=== PATIENT | male | born 1930 | race Caucasian/White ===

== ENCOUNTER → 2016-08-14 | Outpatient (CLI) | payer MEDICARE, BC | END | disposition home or self-care (01) | LOC: LABWHC1 07:25 | PROVIDERS: ATTEND Urology | DX: C61 Malignant neoplasm of prostate (principal) | CPT/HCPCS: 36415; 84153 ==

== ENCOUNTER 2016-10-07 08:38 | Day surgery (SDC) | payer MEDICARE, BC ==
[2016-09-29 15:53] VITALS: BMI 28.5
[~2016-10-07 08:38] MED LIST: CLINDAMYCIN 600 MG in SODIUM CHLORIDE 0.9% IRRIGATIO 250 ML IRRIGATION ONE; CLINDAMYCIN 900 MG in DEXTROSE 5% IN WATER 50 ML IVPB ONE; SODIUM CHLORIDE 0.9% 1,000 ML IV SCH
[2016-10-07 09:01] VITALS: RESP 16
[2016-10-07 09:24] LABS: Glucose,Whole Blood 155 mg/dL (75-99)
[2016-10-07] MEDS ORDERED: SODIUM CHLORIDE 0.9% 500 ML IV ONE (10:50)
[2016-10-07] MEDS ORDERED: MIDAZOLAM 2 MG/2 ML VIAL ONE (10:58)
[2016-10-07] MEDS: MIDAZOLAM 2 MG/2 ML VIAL IV ONE ×2 (10:59→11:29)
[2016-10-07] MEDS ORDERED: LIDOCAINE 2% INJ 20 MG/ML SQ ONE ×2 (11:07→11:24)
[2016-10-07] MEDS ORDERED: SODIUM CHLORIDE 0.9% 1,000 ML IV SCH (12:15)
[2016-10-07 17:28] VITALS: BP 115/62; PULSE 56
--- NOTE | 2016-10-07 22:11 | PCN ---
DATE OF SERVICE: 10/07/2016 PROCEDURE: 1. Transvenous temporary pacemaker from right femoral venous approach. 2. Explantation of previously placed pulse generator from the left infraclavicular approach. 3. Implantation of a new pulse generator in the same pocket. PERFORMED BY: Dr. Sushila Hendrix CLINICAL INFORMATION: Mr. Home Buitrago is an 86-year-old gentleman with a known history of CAD, sick sinus syndrome, chronic atrial fibrillation, history of previous prostate carcinoma and also remote history of endocarditis. He had a pulse generator for his temporary pacemaker which was actually a dual-chamber pacemaker operating as a single chamber for more than 5 years. He has chronic underlying atrial fibrillation, for which he is not anticoagulated because of rectal bleeding following his radiation therapy. The pulse generator reach end of life. He was therefore advised replacement, which is scheduled for today. Risks, benefits, options and rationale were explained. PROCEDURE NOTE: Under local anesthesia and strict aseptic precautions from the right femoral approach, a 6 Indonesian introducer was placed in the right femoral vein. A transvenous balloon-tipped pacemaker was positioned in the right ventricular apex. Good threshold was obtained at 0.7 mV. Subsequently this pacemaker was set up at a back-up rate of 40 ( ) of 5. I then unscrubbed and rescrubbed and started the pulse generator change procedure. Under strict aseptic precautions and local anesthesia, a linear incision was made over the existing pulse generator. Using a combination of blunt dissection and cautery, the existing pulse generator was explanted. The atrial lead was taken out and capped and the cap was covered with a ( ) and a suture was used to retain it. Subsequently the ventricular lead was taken out and the back- up pacemaker was used from the right femoral venous approach. The lead was checked for threshold as well as for impedance, and R waves were sensing at 18.5 mV, but these were paced R waves. Subsequently the new pulse generator was attached to the lead. The pulse generator was placed in the same pocket. The pocket was closed in 2 layers. Excellent hemostasis was secured. Prior to closure of the pocket, it was irrigated with antibiotic solution. The wound was closed in 2 layers. Excellent hemostasis was secured. Patient received moderate conscious sedation for a total duration of 50 minutes. He tolerated the procedure well without complications. PACEMAKER INFORMATION: Explanted device was Medtronic Sigma [id number]. This was initially implanted on 05/11/2005. The atrial lead that was capped was a Medtronic lead 5072, serial number [id number], implanted on 02/08/2004. The ventricular lead, which was also a Medtronic lead, was implanted on 02/08/2004. This was a Medtronic lead, model number 4092, serial number [id number], implanted on 02/08/2004. The new device that was put in was a [employer] device, model Assurity [id number], serial number [id number]. The threshold for the ventricular lead was 0.75 mV at 1 ms. The R waves which were paced waves were sensed at 18.5 mV. The lead impedance was 440 ohms. The pacemaker was set at a low rate of 55 and a high rate of 110 with a VVIR mode. Patient tolerated the procedure well without complications. He was given antibiotics for 4 doses and he will be discharged later on today. Under fluoroscopic guidance, the temporary pacemaker was taken out and venous sheath was taken out and hemostasis secured. ZEE
== END 2016-10-07 17:45 | disposition home or self-care (01) ==
LOC: CATHEP 08:38
PROVIDERS: ATTEND Internal Medicine Interventional Cardiology
DX: Z45.010 Encounter for checking and testing of cardiac pacemaker pulse generator [battery] (principal); I25.10 Atherosclerotic heart disease of native coronary artery without angina pectoris; I48.2 Chronic atrial fibrillation; Z85.46 Personal history of malignant neoplasm of prostate; E11.9 Type 2 diabetes mellitus without complications; I10 Essential (primary) hypertension; E78.5 Hyperlipidemia, unspecified; Z95.1 Presence of aortocoronary bypass graft; Z79.899 Other long term (current) drug therapy; Z87.891 Personal history of nicotine dependence; I27.2 Other secondary pulmonary hypertension; Z79.84 Long term (current) use of oral hypoglycemic drugs; Z88.7 Allergy status to serum and vaccine; Z88.0 Allergy status to penicillin; Z79.82 Long term (current) use of aspirin
CPT/HCPCS: 33228; C1785; 33227

== ENCOUNTER → 2016-10-28 | Outpatient (CLI) | payer MEDICARE, BC ==
[2016-10-28 17:43] LABS: CHCM 33.7; HCT 26.6 % (39.0-53.0); HGB 8.7 gm/dL (13.0-17.5); MCH 28.4 pg (25.0-35.0); MCHC 32.8 g/dL (31.0-37.0); MCV 86.7 fL (80.0-100.0); Mean Platelet Volume 8.9; RBC 3.07 m/uL (4.30-5.90); RDW 15.8 % (11.5-15.5); WBC 4.9 k/uL (3.8-10.6)
[2016-10-28 17:59] LABS: Anion Gap 10 mmol/L; Blood Urea Nitrogen 29 mg/dL (9-20); Carbon Dioxide 27 mmol/L (22-30); Chloride 101 mmol/L (98-107); Non-African American GFR(MDRD) >60 (>60 ml/min/1.73 sqM); Potassium 4.9 mmol/L (3.5-5.1); Sodium 138 mmol/L (137-145)
== END | disposition home or self-care (01) ==
LOC: LABPAT 16:19
PROVIDERS: ATTEND Internal Medicine Interventional Cardiology
DX: Z01.812 Encounter for preprocedural laboratory examination (principal); I25.10 Atherosclerotic heart disease of native coronary artery without angina pectoris
CPT/HCPCS: 80051; 82565; 84520; 85027

== ENCOUNTER → 2016-10-30 | Outpatient (CLI) | payer MEDICARE, BC ==
[2016-10-30 10:41] LABS: Basophils % (A) 0 %; CH 27.9; CHCM 32.2; Eosinophils # (A) 0.2 k/uL (0-0.7); Eosinophils % (A) 3 %; HCT 27.6 % (39.0-53.0); HDW 2.97; HGB 8.9 gm/dL (13.0-17.5); Luc # (Auto) 0.16; Luc % (Auto) 3; Lymphocytes # (A) 0.6 k/uL (1.0-4.8); Lymphocytes % (A) 10 %; MCH 28.1 pg (25.0-35.0); MCHC 32.3 g/dL (31.0-37.0); MCV 87.1 fL (80.0-100.0); Mean Platelet Volume 8.8; Monocytes # (A) 0.5 k/uL (0-1.0); Monocytes % (A) 8 %; Neutrophils # (A) 4.5 k/uL (1.3-7.7); Neutrophils % (A) 75 %; RBC 3.17 m/uL (4.30-5.90); WBC 5.9 k/uL (3.8-10.6); WBC (Perox) 5.91
[2016-10-30 10:54] LABS: Anion Gap 9 mmol/L; Blood Urea Nitrogen 20 mg/dL (9-20); Calcium 9.3 mg/dL (8.4-10.2); Carbon Dioxide 29 mmol/L (22-30); Chloride 101 mmol/L (98-107); Glucose 164 mg/dL (74-99); Iron 234 ug/dL (49-181); Non-African American GFR(MDRD) >60 (>60 ml/min/1.73 sqM); Sodium 139 mmol/L (137-145)
[2016-10-30 11:03] LABS: % Iron Saturation 61.3 % (20-50); Total Iron Binding Capacity 382 ug/dL (261-462)
[2016-10-30 11:45] LABS: Vitamin B12 285 pg/mL
== END | disposition home or self-care (01) ==
LOC: LABWHC1 10:09
PROVIDERS: ATTEND Family Medicine
DX: E11.9 Type 2 diabetes mellitus without complications (principal); J44.9 Chronic obstructive pulmonary disease, unspecified; I48.2 Chronic atrial fibrillation
CPT/HCPCS: 36415; 80048; 82607; 82728; 82746; 83540; 83550; 85025

== ENCOUNTER 2016-11-02 08:02 | Day surgery (SDC) | payer MEDICARE, BC ==
[2016-11-02 08:29] VITALS: BMI 28.8
[2016-11-02 08:38] VITALS: PULSE 60; TEMP 95.8
[2016-11-02 08:38] LABS: Glucose,Whole Blood 154 mg/dL (75-99)
[2016-11-02] MEDS ORDERED: LACTATED RINGERS 1,000 ML IV ONE (08:38)
[2016-11-02] MEDS ORDERED: PROPOFOL 10 MG/ML 20 ML VIAL IV ONE (08:41)
--- NOTE | 2016-11-02 08:49 | P.GSHP ---
History of Present Illness H&P Date: 11/02/16 Chief Complaint: GI bleed This is a 86-year-old male referred from Dr. Apple. Patient presents today for EGD and colonoscopy. He's had issues with GI bleed. Past Medical History Past Medical History: Atrial Fibrillation, Cancer, COPD, Diabetes Mellitus, Hypertension, Osteoarthritis (OA), Prostate Disorder Additional Past Medical History / Comment(s): hx. colon polyps, hx. endocarditis , spinal stenosis, hx. prostate cancer-had radiation, edema jr legs History of Any Multi-Drug Resistant Organisms: None Reported Past Surgical History: Appendectomy, Coronary Bypass/CABG, Heart Catheterization , Hernia Repair, Pacemaker Additional Past Surgical History / Comment(s): triple bypass, left hydrocele repair, jr cataracts, several colonoscopies Past Anesthesia/Blood Transfusion Reactions: No Reported Reaction Type of Cardiac Device: Permanent Pacemaker Device Placement Date:: 05/11/2005 [employer] Smoking Status: Former smoker Medications and Allergies Home Medications Medication Instructions Recorded Confirmed Type Aspirin 81 mg PO DAILY 06/07/14 11/02/16 History Atenolol [Tenormin] 50 mg PO QAM 06/07/14 11/02/16 History Digoxin [Digitek] 250 mcg PO QAM 06/07/14 11/02/16 History Multivitamin [Men's Multi-Vitamin] 1 each PO DAILY 06/07/14 11/02/16 History Tamsulosin [Flomax] 0.4 mg PO BID 06/07/14 11/02/16 History metFORMIN HCL 1,000 mg PO BID 06/07/14 11/02/16 History Ferrous Sulfate [Feosol] 325 mg PO DAILY 09/29/16 11/02/16 History Furosemide [Lasix] 40 mg PO QAM 09/29/16 11/02/16 History Ipratropium/Albuterol Sulfate 1 puff INHALATION Q4H 09/29/16 11/02/16 History [Combivent Respimat Inhaler] Lisinopril [Prinivil] 20 mg PO BID 09/29/16 11/02/16 History Potassium Chloride [Klor-Con 20] 20 meq PO DAILY 09/29/16 11/02/16 History amLODIPine [Norvasc] 5 mg PO BID 09/29/16 11/02/16 History Acetaminophen [Tylenol] 500 mg PO Q4-6H PRN 10/07/16 11/02/16 History Allergies Allergy/AdvReac Type Severity Reaction Status Date / Time Penicillins Allergy Rash/Hives Verified 11/02/16 08:29 tetanus immune globulin AdvReac extreme Verified 11/02/16 08:29 swelling @site of injection Surgical - Exam Vital Signs Temp Pulse Resp BP Pulse Ox 95.8 F L 60 18 146/65 95 11/02/16 08:34 11/02/16 08:34 11/02/16 08:34 11/02/16 08:34 11/02/16 08:34 - General well developed, no distress - Eyes PERRL - ENT normal pinna - Neck no masses - Respiratory normal expansion - Cardiovascular Rhythm: regular - Abdomen Abdomen: soft, non tender Results - Labs Abnormal Lab Results - Last 24 Hours (Table) 11/02/16 Range/Units 08:34 POC Glucose (mg/dL) 154 H (75-99) mg/dL Assessment and Plan Plan: GI bleed. We'll perform colonoscopy and EGD.
--- NOTE | 2016-11-02 09:16 | P.OP ---
Date of Procedure: 11/02/16 Preoperative Diagnosis: GI bleed Postoperative Diagnosis: Antral gastritis Small hiatal hernia Mild esophagitis Proctitis Internal initial hemorrhoids Mild diverticulosis Procedure(s) Performed: EGD Colonoscopy Implants: Anesthesia: MAC Surgeon: Oswaldo Salazar Pathology: other (Antrum, esophagus, rectum) Condition: stable Disposition: PACU Indications for Procedure: Operative Findings: Description of Procedure: Patient's placed on the endoscopy table in the lateral position. He received IV sedation. Digital rectal exam was performed which revealed a few external hemorrhoids. The flexible colonoscope was then placed patient anus passed throughout the entire colon. The ileocecal valve was visualized. The cecum, ascending and transverse colon appeared normal. The descending; there is mild diverticulosis. Scope was then brought back the rectum and appeared to be some inflammation. This area is biopsied. The scope was withdrawn for patient. Next the gastroscope placed oropharynx passed in the esophagus and stomach. Scope was then placed through the pylorus the first and second portion of the duodenum appeared normal. Scope was then brought back the antrum and this appeared mildly inflamed. A biopsies performed. The scope was then retroflexed and remainder stomach appeared normal. There was a small hiatal hernia. The GE junction was at 47 is.. The distal esophagus appeared mildly inflamed and a biopsies performed. The proximal esophagus appeared normal. The scope was withdrawn for patient.
[2016-11-02 09:49] VITALS: BP 134/60; RESP 18
== END 2016-11-02 10:17 | disposition home or self-care (01) ==
LOC: ORWHC2ENDO 08:02
PROVIDERS: ATTEND Surgery
DX: K29.60 Other gastritis without bleeding (principal); K20.9 Esophagitis, unspecified; K92.89 Other specified diseases of the digestive system; K92.2 Gastrointestinal hemorrhage, unspecified; K64.4 Residual hemorrhoidal skin tags; K44.9 Diaphragmatic hernia without obstruction or gangrene; Z86.010 Personal history of colon polyps; Z85.46 Personal history of malignant neoplasm of prostate; K57.30 Diverticulosis of large intestine without perforation or abscess without bleeding; I48.91 Unspecified atrial fibrillation; J44.9 Chronic obstructive pulmonary disease, unspecified; E11.9 Type 2 diabetes mellitus without complications; Z79.84 Long term (current) use of oral hypoglycemic drugs; I10 Essential (primary) hypertension; Z95.0 Presence of cardiac pacemaker; Z95.1 Presence of aortocoronary bypass graft; M19.90 Unspecified osteoarthritis, unspecified site; Z79.82 Long term (current) use of aspirin; Z79.899 Other long term (current) drug therapy; Z88.0 Allergy status to penicillin; Z88.7 Allergy status to serum and vaccine
CPT/HCPCS: 88305; 45380; 43239; J2704

== ENCOUNTER → 2016-12-04 | Outpatient (CLI) | payer MEDICARE, BC ==
[2016-12-04 11:01] LABS: Basophils % (A) 0 %; CH 25.8; CHCM 29.8; Eosinophils % (A) 0 %; HCT 26.7 % (39.0-53.0); HDW 3.97; Hypochromasia Marked; Luc # (Auto) 0.05; Luc % (Auto) 1; Lymphocytes # (A) 0.3 k/uL (1.0-4.8); Lymphocytes % (A) 4 %; MCH 25.6 pg (25.0-35.0); MCHC 29.3 g/dL (31.0-37.0); MCV 87.2 fL (80.0-100.0); Mean Platelet Volume 8.7; Monocytes # (A) 0.3 k/uL (0-1.0); Monocytes % (A) 5 %; Neutrophils # (A) 6.1 k/uL (1.3-7.7); Neutrophils % (A) 90 %; Poikilocytosis Slight; RBC 3.07 m/uL (4.30-5.90); RDW 15.4 % (11.5-15.5); WBC 6.8 k/uL (3.8-10.6); WBC (Perox) 6.62
[2016-12-04 11:07] LABS: HGB 7.8 gm/dL (13.0-17.5)
[2016-12-04 17:02] LABS: Iron Saturation 4.26 (15.00-50.00); Iron(FE) 17 ug/dL (65-175); Total Iron Binding Capacity 399 ug/dL (228-460)
== END | disposition home or self-care (01) ==
LOC: LABWHC1 10:28
PROVIDERS: ATTEND Family Medicine
DX: K29.71 Gastritis, unspecified, with bleeding (principal); K21.0 Gastro-esophageal reflux disease with esophagitis; R53.83 Other fatigue; D64.9 Anemia, unspecified
CPT/HCPCS: 36415; 82607; 82728; 82746; 83540; 83550; 85025

== ENCOUNTER → 2016-12-11 | Outpatient (CLI) | payer MEDICARE, BC ==
[2016-12-11 12:00] LABS: Basophils % (A) 0 %; CHCM 28.3; Eosinophils # (A) 0.2 k/uL (0-0.7); Eosinophils % (A) 3 %; HCT 31.8 % (39.0-53.0); HDW 3.63; HGB 8.9 gm/dL (13.0-17.5); Hypochromasia Marked; Luc # (Auto) 0.09; Luc % (Auto) 1; Lymphocytes # (A) 0.6 k/uL (1.0-4.8); Lymphocytes % (A) 9 %; MCH 24.7 pg (25.0-35.0); MCHC 27.9 g/dL (31.0-37.0); MCV 88.7 fL (80.0-100.0); Mean Platelet Volume 7.6; Monocytes # (A) 0.7 k/uL (0-1.0); Monocytes % (A) 10 %; Neutrophils # (A) 5.2 k/uL (1.3-7.7); Neutrophils % (A) 78 %; Poikilocytosis Slight; RBC 3.59 m/uL (4.30-5.90); RDW 14.4 % (11.5-15.5); WBC 6.7 k/uL (3.8-10.6); WBC (Perox) 6.43
== END | disposition home or self-care (01) ==
LOC: LABWHC1 11:11
PROVIDERS: ATTEND Family Medicine
DX: D64.9 Anemia, unspecified (principal); R60.0 Localized edema; K29.71 Gastritis, unspecified, with bleeding
CPT/HCPCS: 36415; 85025

== ENCOUNTER → 2017-04-09 | Outpatient (CLI) | payer MEDICARE, BC ==
[2017-04-09 10:28] LABS: HCT 36.2 % (39.0-53.0); HGB 11.1 gm/dL (13.0-17.5); Hypochromasia Slight; MCH 27.3 pg (25.0-35.0); MCHC 30.6 g/dL (31.0-37.0); MCV 89.3 fL (80.0-100.0); Mean Platelet Volume 7.9; Platelet Count 131 k/uL (150-450); RBC 4.06 m/uL (4.30-5.90); RDW 15.3 % (11.5-15.5); WBC 3.3 k/uL (3.8-10.6)
[2017-04-09 10:38] LABS: ALT 20 U/L (21-72); AST 19 U/L (17-59); Alkaline Phosphatase 57 U/L (38-126); Anion Gap 8 mmol/L; Blood Urea Nitrogen 14 mg/dL (9-20); Calcium 9.8 mg/dL (8.4-10.2); Carbon Dioxide 35 mmol/L (22-30); Chloride 99 mmol/L (98-107); Glucose 164 mg/dL (74-99); Sodium 142 mmol/L (137-145); Total Bilirubin 0.7 mg/dL (0.2-1.3); Total Protein 6.7 g/dL (6.3-8.2)
== END | disposition home or self-care (01) ==
LOC: LABWHC1 09:37
PROVIDERS: ATTEND Internal Medicine Interventional Cardiology
DX: I25.10 Atherosclerotic heart disease of native coronary artery without angina pectoris (principal); D64.9 Anemia, unspecified
CPT/HCPCS: 36415; 80053; 85027

== ENCOUNTER → 2017-04-19 | Day surgery (SDC) | payer MEDICARE, BC ==
[2017-04-15 11:04] VITALS: BMI 28.1
[~2017-04-19] MED LIST changes: +ALPRAZolam 0.25 MG TAB PO PRN; +ALPRAZolam 0.5 MG TAB PO PRN; +ASPIRIN 325 MG TAB PO STA; +ATORVASTATIN 20 MG TAB PO SCH; +ATORVASTATIN 40 MG TAB PO SCH; -CLINDAMYCIN 600 MG in SODIUM CHLORIDE 0.9% IRRIGATIO 250 ML IRRIGATION ONE; -CLINDAMYCIN 900 MG in DEXTROSE 5% IN WATER 50 ML IVPB ONE; +HYDROmorphone 0.5 MG/0.5 ML SYRINGE IVP ONE; +IOHEXOL 350 MG/ML 100 ML BOTTLE INJ ONE; +LIDOCAINE 2% INJ 20 MG/ML (20 ML MDV) ONE; +LIDOCAINE 2% INJ 20 MG/ML SQ ONE; +MIDAZOLAM 2 MG/2 ML VIAL IVP ONE; +MIDAZOLAM 2 MG/2 ML VIAL ONE; +NITROGLYCERIN SL TABS 0.4 MG TAB SUBLINGUAL PRN; +RX INFO: IV CONTRAST WAS GIVEN 1 EACH MISC MISCELLANE PRN; +SODIUM CHLORIDE 0.9% 1,000 ML IV ONE; +SODIUM CHLORIDE 0.9% 1,000 ML in EMPTY BAG 1 BAG IV ONE; +diphenhydrAMINE 50 MG/ML 1 ML VIAL IVP ONE; +diphenhydrAMINE 50 MG/ML 1 ML VIAL ONE
[2017-04-19 09:46] LABS: Basophils % (A) 1 %; Eosinophils # (A) 0.2 k/uL (0-0.7); Eosinophils % (A) 5 %; HCT 35.9 % (39.0-53.0); HGB 11.4 gm/dL (13.0-17.5); Lymphocytes # (A) 0.6 k/uL (1.0-4.8); Lymphocytes % (A) 14 %; MCH 27.4 pg (25.0-35.0); MCHC 31.6 g/dL (31.0-37.0); MCV 86.5 fL (80.0-100.0); Mean Platelet Volume 8.6; Monocytes # (A) 0.4 k/uL (0-1.0); Monocytes % (A) 10 %; Neutrophils # (A) 3.1 k/uL (1.3-7.7); Neutrophils % (A) 69 %; Platelet Count 119 k/uL (150-450); RBC 4.15 m/uL (4.30-5.90); RDW 14.3 % (11.5-15.5); WBC 4.5 k/uL (3.8-10.6)
[2017-04-19 09:49] VITALS: RESP 18
[2017-04-19 10:09] LABS: Glucose,Whole Blood 155 mg/dL (75-99)
[2017-04-19 13:16] VITALS: PULSE 60
--- NOTE | 2017-04-19 14:40 | LTR ---
DATE OF SERVICE: 04/19/[address] Apple: Thank you for the opportunity to participate in the care of Mr. Home Buitrago. This gentleman fortunately has widely patent grafts with diffuse disease in the craig system. Continued medical therapy with risk factor modification is being advised. He will be discharged later on today if he remains stable. Thank you for your referral. Please call for questions. With kind personal regards, Sincerely, DINA / LEANNN: [phone] /
--- NOTE | 2017-04-19 14:40 | CC ---
CARDIAC CATHETERIZATION REPORT DATE OF SERVICE: 04/19/2017. PROCEDURE: Left heart catheterization, coronary angiography and selective injection of bypass grafts. PERFORMED BY: Dr. Michael Hendrix. CLINICAL INFORMATION: Mr. Home Buitrago is an 87-year-old gentleman with a known history of aortocoronary bypass surgery in 2003. He had a SOMMERS to LAD, vein graft to the diagonal branch of LAD, and another vein graft to the PDA branch of RCA. Because of symptoms strongly suggestive of unstable angina, he was advised coronary angiography. He also had a previous stress test that revealed ischemia as well. He had anemia that was corrected and symptoms of chest pain persisted and therefore he was advised cardiac catheterization. PROCEDURE NOTE: Under local anesthesia and strict aseptic precautions, a 6-Senegalese introducer was placed in the right femoral artery. Using standard left Germain catheter I performed selective coronary angiography of the left coronary artery. Using a Raúl catheter, I performed selective coronary angiography of the algaaciq RCA, vein graft to the RCA as well as the SOMMERS injection. I used an AR2 catheter to perform selective coronary angiography of the vein graft to the diagonal branch. LV pressures were obtained with a pigtail catheter but LV gram was not performed. The sheath was taken out and a Perclose device used to secure hemostasis. Good hemostasis was secured. Patient tolerated the procedure well without complication. ANESTHESIA: Moderate conscious sedation time was for 30 minutes. Oxygen saturation was monitored closely. CARDIAC CATHETERIZATION FINDINGS: The left ventricular end-diastolic pressure was about a 15-16 mmHg without any gradient across aortic valve. CORONARY ANGIOGRAPHY FINDINGS: Right coronary artery: This is technically a dominant vessel has no significant disease other than minor irregularities in the proximal and midportion. Distally the PLV is patent small in caliber PDA, which is larger, is totally occluded. Left main coronary artery: This is a short patent vessel has some ostial disease of about maybe 30% or so and the vessel bifurcates into LAD and circumflex. Left anterior descending coronary artery has a 90% proximal lesion. The vessel is totally occluded in the midportion. There is some competitive flow seen in the diagonal branch that is also opacified and the diagonal branch has an ostial lesion. Left posterior circumflex coronary artery: This vessel is a nondominant vessel gives off a first obtuse marginal that is small in caliber. Second obtuse marginal is totally occluded and continues distally continues and gives off 2 branches in the groove and continues as a small posterolateral branch distally with diffuse disease. No significant disease is noted other than diffuse irregularities in the distal aspect of the circumflex that is opacified, but 2nd obtuse marginal is totally occluded. Left internal mammary artery graft to LAD: This graft is widely patent in its origin, course and insertion site. Opacified LAD has minor diffuse irregularities. It goes back and fills another secondary diagonal branch as well. The graft is placed somewhat in the distal half of the LAD. Saphenous vein graft to the PDA branch of RCA: This graft is widely patent in its origin, course and insertion site and opacifies the PDA which has minor irregularities but no significant disease. Saphenous vein graft to the diagonal branches: This graft is widely patent in its origin, course and insertion site. Opacified diagonal is small in caliber and distribution, has mild diffuse disease, but no significant obstructive disease is noted. FINAL IMPRESSION: This patient has patent vein graft to the diagonal branch and PDA branch of RCA. The SOMMERS to LAD is patent. There is significant disease in the algaaciq system with ostial disease in the left main of about 20 to 30%, there is a total occlusion of the LAD in the midportion. The circumflex obtuse marginal is occluded and PDA branch of RCA is occluded. The filling pressures are acceptable. RECOMMENDATIONS: Findings were discussed with the patient and family. I am recommending aggressive medical therapy with risk factor modification. No intervention necessary. Patient will be discharged later on today if he remains stable. MMODL / IJN: [id number] /
[2017-04-19 17:52] VITALS: BP 155/70; TEMP 98.2
== END ==
LOC: CATHCVL 09:13
PROVIDERS: ATTEND Internal Medicine Interventional Cardiology
DX: I25.110 Atherosclerotic heart disease of native coronary artery with unstable angina pectoris (principal); I25.82 Chronic total occlusion of coronary artery; I10 Essential (primary) hypertension; Z87.891 Personal history of nicotine dependence; I49.5 Sick sinus syndrome; Z95.1 Presence of aortocoronary bypass graft; I48.2 Chronic atrial fibrillation; Z95.0 Presence of cardiac pacemaker; Z79.82 Long term (current) use of aspirin; Z79.899 Other long term (current) drug therapy
CPT/HCPCS: 93459; 85025; C1894; C1769 ×2; C1760; J2001; J2250; J1200; Q9967; J1170

== ENCOUNTER → 2017-07-12 | Outpatient (CLI) | payer MEDICARE, BC ==
--- NOTE | 2017-07-12 13:22 | CT ---
EXAMINATION TYPE: CT abdomen pelvis w con DATE OF EXAM: 07/12/2017 COMPARISON: 06/17/12 HISTORY: RUQ mass CT DLP: 1583 mGycm CONTRAST: CT scan of the abdomen and pelvis is performed with Oral Contrast and with IV Contrast, patient injec migue with 100 mL of Isovue 300. FINDINGS: LUNG BASES-: Small right greater than left pleural effusion noted. Mild subpleural fibrosis. Calcifie d nodules seen at the lung bases. There is evidence of cardiomegaly. LIVER/GB: Numerous gallstones identified. Simple hepatic cysts identified without solid hepatic lesio n. Biliary tree is of normal caliber. Small amount of fluid adjacent to the liver edge. PANCREAS: No inflammation. No distinct mass. Pancreatic calcifications compatible with chronic panc reatitis. SPLEEN: Mild splenomegaly measuring 13.2 cm craniocaudal dimension. No lesion seen. ADRENALS: No nodule. No thickening. KIDNEYS/BLADDER: No hydronephrosis. No nephrolithiasis. Left renal cyst measuring 2.3 cm. Urinary b ladder grossly unremarkable. BOWEL: Normal appendix. Normal bowel caliber. No inflammation. There is moderate fecal stasis noted . GENITAL ORGANS: Prostate radiation clips in place. Small amount of free fluid within the pelvis. LYMPH NODES: No greater than 1cm abdominal or pelvic lymph nodes are appreciated. AORTA: No significant abnormality. OSSEOUS STRUCTURES: Severe degenerative change lumbar spine. Postfusion changes at L3-4.. OTHER: No significant additional abnormality is seen. IMPRESSION: 1. No evidence for abdominal mass. 2. Small pleural effusions as well as mild ascites as noted. 3. Chronic pancreatitis. 4. Mild splenomegaly. 5. Moderate fecal stasis. 6. Cholelithiasis.
== END | disposition home or self-care (01) ==
LOC: RADCTMAIN 10:36
PROVIDERS: ATTEND Internal Medicine Hematology & Oncology
DX: R19.01 Right upper quadrant abdominal swelling, mass and lump (principal); K86.1 Other chronic pancreatitis; R16.1 Splenomegaly, not elsewhere classified; K80.20 Calculus of gallbladder without cholecystitis without obstruction
CPT/HCPCS: 82565; 84520; 74177; 36415; Q9967

== ENCOUNTER 2017-08-02 06:22 | Day surgery (SDC) | payer MEDICARE, BC ==
[2017-07-29 15:45] VITALS: BMI 27.1
[~2017-08-02 06:22] MED LIST changes: -ALPRAZolam 0.25 MG TAB PO PRN; -ALPRAZolam 0.5 MG TAB PO PRN; -ASPIRIN 325 MG TAB PO STA; -ATORVASTATIN 20 MG TAB PO SCH; -ATORVASTATIN 40 MG TAB PO SCH; +DEXAMETHASONE SOD PHOSPHATE 10 MG/ML 1 ML VIAL IV ONE; +HEPARIN SODIUM,PORCINE 5,000 UNIT/ML 1 ML VIAL SQ ONE; -HYDROmorphone 0.5 MG/0.5 ML SYRINGE IVP ONE; +HYDROmorphone 0.5 MG/0.5 ML SYRINGE IVP PRN; -IOHEXOL 350 MG/ML 100 ML BOTTLE INJ ONE; +LACTATED RINGERS 1,000 ML IV SCH; -LIDOCAINE 2% INJ 20 MG/ML (20 ML MDV) ONE; -LIDOCAINE 2% INJ 20 MG/ML SQ ONE; -MIDAZOLAM 2 MG/2 ML VIAL IVP ONE; -MIDAZOLAM 2 MG/2 ML VIAL ONE; -NITROGLYCERIN SL TABS 0.4 MG TAB SUBLINGUAL PRN; +ONDANSETRON 4 MG/2 ML VIAL IVP ONE; +ONDANSETRON 4 MG/2 ML VIAL IVP PRN; -RX INFO: IV CONTRAST WAS GIVEN 1 EACH MISC MISCELLANE PRN; +SCOPOLAMINE 1.5MG/72HR PATCH TRANSDERM ONE; -SODIUM CHLORIDE 0.9% 1,000 ML IV ONE; -SODIUM CHLORIDE 0.9% 1,000 ML IV SCH; -SODIUM CHLORIDE 0.9% 1,000 ML in EMPTY BAG 1 BAG IV ONE; +ceFAZolin IN SWFI 2 GM/20 ML SYRINGE IVP ONE; -diphenhydrAMINE 50 MG/ML 1 ML VIAL IVP ONE; -diphenhydrAMINE 50 MG/ML 1 ML VIAL ONE; +fentaNYL (PF) 50 MCG/ML 2 ML AMP IV PRN
[2017-08-02] MEDS ORDERED: LIDOCAINE 1% 20 ML VIAL (10MG/ML) FOR IV START INTRADERMA ONE (07:00)
[2017-08-02 07:08] LABS: Glucose,Whole Blood 142 mg/dL (75-99)
[2017-08-02 07:09] LABS: Basophils % (A) 0 %; Eosinophils # (A) 0.2 k/uL (0-0.7); Eosinophils % (A) 4 %; HCT 33.8 % (39.0-53.0); HGB 11.5 gm/dL (13.0-17.5); Lymphocytes # (A) 0.6 k/uL (1.0-4.8); Lymphocytes % (A) 12 %; MCH 28.7 pg (25.0-35.0); MCHC 33.9 g/dL (31.0-37.0); MCV 84.7 fL (80.0-100.0); Mean Platelet Volume 8.4; Monocytes # (A) 0.4 k/uL (0-1.0); Monocytes % (A) 8 %; Neutrophils # (A) 3.5 k/uL (1.3-7.7); Neutrophils % (A) 74 %; Platelet Count 125 k/uL (150-450); RBC 3.99 m/uL (4.30-5.90); RDW 13.6 % (11.5-15.5); WBC 4.8 k/uL (3.8-10.6)
[2017-08-02 07:19] LABS: Calcium 9.4 mg/dL (8.4-10.2); Potassium 4.5 mmol/L (3.5-5.1)
[2017-08-02] MEDS ORDERED: MIDAZOLAM 2 MG/2 ML VIAL ONE (07:47)
[2017-08-02] MEDS ORDERED: LIDOCAINE 1% INJ 10MG/ML (20 ML MDV) ONE (07:47)
[2017-08-02] MEDS ORDERED: ROCURONIUM BROMIDE 10 MG/ML 10 ML VIAL IV ONE (07:47)
[2017-08-02] MEDS ORDERED: NEOSTIGMINE 1 MG/ML 10 ML VIAL ONE (07:47)
[2017-08-02] MEDS ORDERED: fentaNYL (PF) 50 MCG/ML 2 ML AMP ONE (07:47)
[2017-08-02] MEDS ORDERED: GLYCOPYRROLATE 0.2 MG/ML 2 ML VIAL ONE (07:47)
[2017-08-02] MEDS ORDERED: PROPOFOL 10 MG/ML 20 ML VIAL IV ONE (07:47)
[2017-08-02] MEDS ORDERED: SUCCINYLCHOLINE CHLORIDE 100 MG/5 ML SYR IV ONE (07:47)
--- NOTE | 2017-08-02 08:04 | P.GSHP ---
History of Present Illness H&P Date: 08/02/17 Chief Complaint: Cholecystitis and cholelithiasis Is a 87-year-old male who's had complete return quadrant pain. Patient recent CAT scan showed evidence of cholelithiasis. He presents today for laparoscopic cholecystectomy. Past Medical History Past Medical History: Atrial Fibrillation, Cancer, COPD, Diabetes Mellitus, GERD /Reflux, Hypertension, Osteoarthritis (OA), Prostate Disorder, Skin Disorder Additional Past Medical History / Comment(s): hx. colon polyps, hx. endocarditis , spinal stenosis, hx. prostate cancer-had radiation, edema jr legs,skin CA scalp, chronic anemia per pt. History of Any Multi-Drug Resistant Organisms: None Reported Past Surgical History: Adenoidectomy, Appendectomy, Coronary Bypass/CABG, Heart Catheterization, Hernia Repair, Pacemaker, Tonsillectomy Additional Past Surgical History / Comment(s): triple bypass, left hydrocele repair, jr cataracts, several colonoscopies Past Anesthesia/Blood Transfusion Reactions: No Reported Reaction Type of Cardiac Device: Permanent Pacemaker Device Placement Date:: . 2016 Smoking Status: Former smoker - Past Family History Mother Additional Family Medical History / Comment(s): heart problems Father Family Medical History: Cancer Son(s) Family Medical History: Cancer Brother(s) Family Medical History: Cancer Medications and Allergies Home Medications Medication Instructions Recorded Confirmed Type Atenolol [Tenormin] 50 mg PO QAM 06/07/14 08/02/17 History Digoxin [Digitek] 250 mcg PO QAM 06/07/14 08/02/17 History Tamsulosin [Flomax] 0.4 mg PO BID 06/07/14 08/02/17 History metFORMIN HCL 1,000 mg PO BID 06/07/14 08/02/17 History Furosemide [Lasix] 40 mg PO QAM 09/29/16 08/02/17 History Ipratropium/Albuterol Sulfate 1 puff INHALATION QID 09/29/16 08/02/17 History [Combivent Respimat Inhaler] Lisinopril [Prinivil] 20 mg PO DAILY 09/29/16 08/02/17 History Potassium Chloride [Klor-Con 20] 20 meq PO DAILY 09/29/16 08/02/17 History amLODIPine [Norvasc] 5 mg PO HS 09/29/16 08/02/17 History Iron Infusion 1 dose IV DIRECTED 04/15/17 08/02/17 History Loperamide [Imodium] 2 mg PO QID PRN 04/15/17 08/02/17 History Pantoprazole [Protonix] 40 mg PO DAILY 04/15/17 08/02/17 History Atorvastatin [Lipitor] 20 mg PO HS 07/29/17 08/02/17 History Multivitamin [Men's Multi-Vitamin] 1 each PO DAILY 07/29/17 08/02/17 History Allergies Allergy/AdvReac Type Severity Reaction Status Date / Time Penicillins Allergy Rash/Hives Verified 08/02/17 06:46 tetanus immune globulin AdvReac extreme Verified 08/02/17 06:46 swelling entire arm Surgical - Exam Vital Signs Temp Pulse Resp BP Pulse Ox 97.5 F L 60 16 146/66 97 08/02/17 07:07 08/02/17 07:07 08/02/17 07:07 08/02/17 07:07 08/02/17 07:07 - General well developed, no distress - Eyes PERRL - ENT normal pinna - Neck no masses - Respiratory normal expansion - Cardiovascular Rhythm: regular - Abdomen Mild right quadrant pain Abdomen: soft Results - Labs 08/02/17 07:00 08/02/17 07:00 Abnormal Lab Results - Last 24 Hours (Table) 08/02/17 08/02/17 08/02/17 Range/Units 06:55 07:00 07:00 RBC 3.99 L (4.30-5.90) m/uL Hgb 11.5 L (13.0-17.5) gm/dL Hct 33.8 L (39.0-53.0) % Plt Count 125 L (150-450) k/uL Lymphocytes # 0.6 L (1.0-4.8) k/uL BUN 21 H (9-20) mg/dL Glucose 136 H (74-99) mg/dL POC Glucose (mg/dL) 142 H (75-99) mg/dL Diabetes panel 08/02/17 Range/Units 07:00 Sodium 141 (137-145) mmol/L Potassium 4.5 (3.5-5.1) mmol/L Chloride 99 (98-107) mmol/L Carbon Dioxide 30 (22-30) mmol/L BUN 21 H (9-20) mg/dL Creatinine 0.92 (0.66-1.25) mg/dL Glucose 136 H (74-99) mg/dL Calcium 9.4 (8.4-10.2) mg/dL Calcium panel 08/02/17 Range/Units 07:00 Calcium 9.4 (8.4-10.2) mg/dL Pituitary panel 08/02/17 Range/Units 07:00 Sodium 141 (137-145) mmol/L Potassium 4.5 (3.5-5.1) mmol/L Chloride 99 (98-107) mmol/L Carbon Dioxide 30 (22-30) mmol/L BUN 21 H (9-20) mg/dL Creatinine 0.92 (0.66-1.25) mg/dL Glucose 136 H (74-99) mg/dL Calcium 9.4 (8.4-10.2) mg/dL Adrenal panel 08/02/17 Range/Units 07:00 Sodium 141 (137-145) mmol/L Potassium 4.5 (3.5-5.1) mmol/L Chloride 99 (98-107) mmol/L Carbon Dioxide 30 (22-30) mmol/L BUN 21 H (9-20) mg/dL Creatinine 0.92 (0.66-1.25) mg/dL Glucose 136 H (74-99) mg/dL Calcium 9.4 (8.4-10.2) mg/dL Assessment and Plan Assessment: Cholelithiasis Chronic cholecystitis We'll perform laparoscopic cholecystectomy
[2017-08-02] MEDS ORDERED: BUPIVACAINE (PF) 0.5% 30 ML VIAL SQ ONE (08:17)
[2017-08-02] MEDS ORDERED: HYDROmorphone 1 MG/ML 1 ML SYRINGE IVP ONE (09:00)
--- NOTE | 2017-08-02 09:09 | P.OP ---
Date of Procedure: 08/02/17 Preoperative Diagnosis: Cholecystitis Cholelithiasis Postoperative Diagnosis: Cholecystitis Cholelithiasis Procedure(s) Performed: Laparoscopic cholecystectomy Anesthesia: LOAN Surgeon: Oswaldo Salazar Estimated Blood Loss (ml): 5 Pathology: other (Gallbladder) Condition: stable Disposition: PACU Description of Procedure: The patient was placed on the operating table. The patient received a general endotracheal tube anesthesia. The patients abdomen was prepped and draped in the usual sterile fashion. Through an infraumbilical stab incision, the fascia of the anterior abdominal wall was grasped with a pair of Kochers and then the Veress needle was placed in the peritoneal cavity. Position of the Veress needle was confirmed with positive drop test. The abdomen was then insufflated. After adequate insufflation, the 10 mm trocar was placed in the peritoneal cavity. Following this the laparoscope was placed in the peritoneal cavity. The patient was placed in the head-up, right side up position and then a 5 mm trocar was placed in the right lateral and right subcostal position under direct visualization. A 8 mm trocar was placed in the epigastric position. The gallbladder was grasped in the fundus and infundibulum. Traction on the gallbladder was placed in the lateral and the cephalad positions. The triangle of Calot was visualized.. The cystic duct was bluntly dissected until the union of the cystic duct and common bile duct was seen. The cystic duct was then divided and sealed with the Harmonic scissors. A PDS Endoloop was then placed throughout the cystic duct stump. The cystic artery divided and sealed with the Harmonic scissors. The gallbladder was then removed from the liver bed using Harmonic scissors. The gallbladder was then extracted through the epigastric port site. Operative field was checked for any bleeding spots and Harmonic scissors was used to coagulate the liver bed. The abdomen was irrigated. The trocars were removed. The skin was closed using interrupted 3-0 Vicryl suture. Dermabond dressing were applied. The patient tolerated the procedure well.
[2017-08-02 09:13] VITALS: TEMP 97
[2017-08-02 09:40] LABS: Glucose,Whole Blood 170 mg/dL (75-99)
[2017-08-02 10:12] LABS: Glucose,Whole Blood 164 mg/dL (75-99)
[2017-08-02 11:59] VITALS: RESP 18
[2017-08-02 12:40] VITALS: PULSE 60
[2017-08-02 12:54] VITALS: BP 134/58
[2017-08-02] MEDS ORDERED: ACETAMINOPHEN TAB 325 MG TAB PO ONE (12:56)
== END 2017-08-02 13:41 | disposition home or self-care (01) ==
LOC: OR 06:22
PROVIDERS: ATTEND Surgery
DX: K80.10 Calculus of gallbladder with chronic cholecystitis without obstruction (principal); J44.9 Chronic obstructive pulmonary disease, unspecified; E11.9 Type 2 diabetes mellitus without complications; K21.9 Gastro-esophageal reflux disease without esophagitis; I10 Essential (primary) hypertension; M19.90 Unspecified osteoarthritis, unspecified site; D64.9 Anemia, unspecified; I48.91 Unspecified atrial fibrillation; Z88.0 Allergy status to penicillin; Z88.7 Allergy status to serum and vaccine; Z79.84 Long term (current) use of oral hypoglycemic drugs; Z79.899 Other long term (current) drug therapy; Z85.46 Personal history of malignant neoplasm of prostate; Z92.3 Personal history of irradiation; Z85.828 Personal history of other malignant neoplasm of skin; Z87.891 Personal history of nicotine dependence; Z95.1 Presence of aortocoronary bypass graft; Z95.0 Presence of cardiac pacemaker; Z90.49 Acquired absence of other specified parts of digestive tract; Z80.9 Family history of malignant neoplasm, unspecified
CPT/HCPCS: 47562; 88304; 80048; 85025; J2250; J1644; J1100; J2710; J2405; J2001; J3010; J1170 ×2; J0330; J2704; J0690

== ENCOUNTER → 2018-10-05 | Outpatient (CLI) | payer MEDICARE, BC ==
--- NOTE | 2018-10-06 10:02 | CT ---
EXAMINATION TYPE: CT ChestAbdPelvis w con DATE OF EXAM: 10/05/2018 COMPARISON: CT abdomen dated 07/12/2017 HISTORY: Abnormal weight loss CT DLP: 1186.9 mGycm Automated exposure control for dose reduction was used. CONTRAST: CT scan of the chest, abdomen and pelvis is performed with Oral Contrast and with IV Contrast, patien t injected with 100 mL of Isovue 300. FINDINGS: LUNGS: The lungs are grossly clear, there is no concerning parenchymal mass or nodule identified. Mil d paraseptal emphysema and peripheral interstitial opacities. A few scattered calcified granulomas. There is no pleural effusion or pneumothorax seen. The tracheobronchial tree is patent. MEDIASTINUM: There are no greater than 1 cm hilar or mediastinal lymph nodes. No pericardial effusi on is seen. OTHER: Enlarged left axillary lymph node measuring 1.2 cm on axial image 11 LIVER/GB: Slightly irregular peripheral contour of the suggestive of underlying cirrhosis. Small amou nt of perihepatic ascites. Gallbladder surgically absent. Redemonstration of low-attenuation cysts in the right hepatic lobe measuring up to 1.2 cm, similar to prior. PANCREAS: Multiple calcifications seen within the without discrete pancreatic lesion. SPLEEN: Stable splenomegaly measuring up to 16.4 cm. ADRENALS: Fat-containing left adrenal nodule measuring up to 1.8 cm. KIDNEYS: Symmetric perfusion of the bilateral kidneys. Small left renal cyst measuring 2.3 cm. BOWEL: Oral contrast is seen to the hepatic flexure. A large amount stool is seen in the transverse and descending colon. No bowel obstruction.No free intraperitoneal air. REPRODUCTIVE ORGANS: Redemonstration of prostatic seeds. Small amount of fluid within the pelvis. LYMPH NODES: No greater than 1 cm abdominal or pelvic lymph nodes are appreciated. OSSEOUS STRUCTURES: Multilevel degenerative changes of the thoracic and lumbar spine most severe from L2-3 to L5-S1. No osteolytic or osteoblastic lesions. OTHER: Redemonstration of left inguinal canal hernia with bilateral scrotal hydroceles. IMPRESSION: Cirrhotic features of the liver with worsening of small amount of perihepatic ascites. Stable splenomegaly. Nonspecific left axillary lymph node measuring up to 1.2 cm. Further evaluation with tissue sampling may be obtained.
== END | disposition home or self-care (01) ==
LOC: RADCTMAIN 15:53
PROVIDERS: ATTEND Family Medicine
DX: R18.8 Other ascites (principal); K74.60 Unspecified cirrhosis of liver; I89.8 Other specified noninfective disorders of lymphatic vessels and lymph nodes; E44.1 Mild protein-calorie malnutrition; Z88.7 Allergy status to serum and vaccine; Z88.0 Allergy status to penicillin
CPT/HCPCS: 82565; 84520; 71260; 74177; 36415; Q9967

== ENCOUNTER 2018-10-17 08:50 | Day surgery (SDC) | payer MEDICARE, BC ==
[2018-10-17 09:02] VITALS: PULSE 60; RESP 20; TEMP 97.6
[2018-10-17] MEDS ORDERED: ALPRAZolam 0.25 MG TAB PO STA (09:13)
[2018-10-17 11:05] VITALS: BP 134/62
--- NOTE | 2018-10-17 11:35 | US ---
ULTRASOUND GUIDED FNA LEFT AXILLARY LYMPH NODE BIOPSY: CLINICAL HISTORY: Left axillary lymph node FINDINGS: The procedure was explained to the patient. The risks, complications, benefits and alternatives were discussed and any questions were answered. Informed consent was obtained. Patient was placed supin e on the ultrasound table and prepped and draped in the usual sterile fashion. Utilizing a 25 gauge needle, and a pass was made into the requested left axillary lymph node. Patient was stable throughou t the procedure. Pathology is pending. All elements of maximal barrier technique were utilized. IMPRESSION: 1. Successful ultrasound guided FNA left axillary lymph node biopsy.
== END 2018-10-17 11:10 | disposition home or self-care (01) ==
LOC: RADPROMAIN 08:50
PROVIDERS: ATTEND Family Medicine
DX: R59.0 Localized enlarged lymph nodes (principal); Z88.0 Allergy status to penicillin; Z88.7 Allergy status to serum and vaccine
CPT/HCPCS: 10005; 38505; 76942; 88173; 88305

== ENCOUNTER → 2018-10-26 | Outpatient (CLI) | payer MEDICARE, BC ==
[2018-10-26 16:24] LABS: Creatine Kinase MB 1.5 ng/mL (0.0-2.4); Troponin I <0.012 ng/mL (0.000-0.034)
[2018-10-26 23:14] LABS: African American GFR (CKD) 89.3 (60.0-200.0); Albumin/Globulin Ratio 1.74 (1.60-3.17); Anion Gap 7.5 mmol/L (4.00-12.00); BUN/Creat Ratio 21.11 Ratio (12.00-20.00); Calcium 9.3 mg/dL (8.7-10.3); Carbon Dioxide 27.5 mmol/L (21.6-31.8); Globulin 2.3 g/dL (1.6-3.3); Potassium 4.6 mmol/L (3.5-5.5); Total Bilirubin 0.6 mg/dL (0.3-1.2); Total Protein 6.3 g/dL (6.2-8.2)
== END | disposition home or self-care (01) ==
LOC: LABWHC1 14:09
PROVIDERS: ATTEND Nurse Practitioner Family
DX: I49.9 Cardiac arrhythmia, unspecified (principal)
CPT/HCPCS: 36415; 80053; 82553; 84484; 93005

== ENCOUNTER → 2018-10-31 | Outpatient (CLI) | payer MEDICARE, BC ==
[2018-10-31 13:54] LABS: HCT 34.6 % (39.0-53.0); HGB 11.4 gm/dL (13.0-17.5); MCH 28.4 pg (25.0-35.0); Mean Platelet Volume 7.9; Platelet Count 163 k/uL (150-450); RBC 4.02 m/uL (4.30-5.90); RDW 15.4 % (11.5-15.5); WBC 3.6 k/uL (3.8-10.6)
[2018-10-31 21:15] LABS: Iron Saturation 23.83 (15.00-50.00)
[2018-10-31 21:22] LABS: Alpha Fetoprotein, Tumor Mkr 5.2 ng/mL (0.0-7.9)
[2018-10-31 21:47] LABS: Hepatitis C IgG Antibody Non-Reactive (Non-Reactive)
== END | disposition home or self-care (01) ==
LOC: LABWHC1 12:43
PROVIDERS: ATTEND Internal Medicine Gastroenterology
DX: K74.60 Unspecified cirrhosis of liver (principal)
CPT/HCPCS: 36415; 82103; 82105; 82390; 82728; 83540; 83550; 85027; 86038; 86803; 87340

== ENCOUNTER → 2019-03-14 | Outpatient (CLI) | payer MEDICARE, BC ==
--- NOTE | 2019-03-14 16:04 | US ---
EXAMINATION TYPE: US axilla LT DATE OF EXAM: 03/14/2019 COMPARISON: CT October 05, 2018 CLINICAL HISTORY: C76.1 Axillary Mass. Follow up left axilla lymph node Left axilla: 3.0 x 2.0 x 2.6cm complex area seen IMPRESSION: Suspect continued enlarging abnormal left axillary lymph node correlating to CT axial im age 14. Differential includes neoplasm such as lymphoma. Correlate with biopsy October 17. Consider re peat core biopsy.
== END | disposition home or self-care (01) ==
LOC: RADUSWWP 15:30
PROVIDERS: ATTEND Internal Medicine Hematology & Oncology
DX: C76.1 Malignant neoplasm of thorax (principal)

== ENCOUNTER → 2019-04-03 | Outpatient (CLI) | payer MEDICARE, BC ==
--- NOTE | 2019-04-04 12:24 | XR ---
EXAMINATION TYPE: XR chest 2V DATE OF EXAM: 04/03/2019 COMPARISON: Prior chest x-ray 01/25/[address] 10/05/2018 HISTORY: Shortness of breath TECHNIQUE: Frontal and lateral views of the chest are obtained. FINDINGS: Patient is post median sternotomy. Generator is stable in left pectoral region, there are leads in the right atrium and ventricle. Patchy basilar density persists. Prominence of pulmonary art janae could be indicative of pulmonary artery hypertension. Interstitium is increased as on prior. No e vident pneumothorax. Epicardial pacing leads are in place. IMPRESSION: Findings are similar to prior exam. Correlate for pulmonary venous hypertension and inte rstitial edema, patient with known interstitial lung disease. Possible small effusion although findin gs may represent chronic pleural reaction, additional findings above.
== END | disposition home or self-care (01) ==
LOC: RADXRMAIN 16:12
PROVIDERS: ATTEND Family Medicine
DX: J84.9 Interstitial pulmonary disease, unspecified (principal)
CPT/HCPCS: 71046

== ENCOUNTER → 2019-04-19 | Day surgery (SDC) | payer MEDICARE, BC ==
[2019-04-17 11:50] VITALS: BMI 26.6
[~2019-04-19] MED LIST changes: +BUPIVACAINE (PF) 0.25% 30 ML VIAL SQ ONE; +IPRATROPIUM-ALBUTEROL 3 ML NEB INHALATION STA; +KETAMINE 10 MG/ML 20 ML VIAL ONE; +LIDOCAINE 1% 20 ML VIAL (10MG/ML) FOR IV START INTRADERMA PRN; +LIDOCAINE 1% INJ 10MG/ML (20 ML MDV) ONE; +MIDAZOLAM 2 MG/2 ML VIAL IV PRN; -ONDANSETRON 4 MG/2 ML VIAL IVP PRN; +PROPOFOL 10 MG/ML 20 ML VIAL IV ONE; +Pre Op ABX Message 1 EACH MISC MISCELLANE ONE; +SODIUM CHLORIDE 0.9% 100 ML with ceFAZolin 2,000 MG IV ONE; +SUCCINYLCHOLINE CHLORIDE 100 MG/5 ML SYR IV ONE; +ceFAZolin 1,000 MG VIAL ONE; -ceFAZolin IN SWFI 2 GM/20 ML SYRINGE IVP ONE; -fentaNYL (PF) 50 MCG/ML 2 ML AMP IV PRN; +fentaNYL (PF) 50 MCG/ML 2 ML AMP ONE
[2019-04-19 10:16] LABS: Glucose,Whole Blood 178 mg/dL (75-99)
--- NOTE | 2019-04-19 10:43 | P.GSHP ---
History of Present Illness H&P Date: 04/19/19 Chief Complaint: Left axillary lymphadenopathy This 89-year-old male who presents today for left axillary lymph node biopsy. Patient's noted to have enlarged left axillary lymph nodes. Past Medical History Past Medical History: Atrial Fibrillation, Cancer, COPD, Diabetes Mellitus, GERD/Reflux, Hypertension, Osteoarthritis (OA), Prostate Disorder, Skin Disorder Additional Past Medical History / Comment(s): hx. colon polyps, endocarditis, spinal stenosis, hx. prostate cancer-had radiation & seed implants, edema jr legs,skin CA scalp, chronic anemia -receives iron transfusions., lump left axilla History of Any Multi-Drug Resistant Organisms: None Reported Past Surgical History: Adenoidectomy, Appendectomy, Cholecystectomy, Coronary Bypass/CABG, Heart Catheterization, Hernia Repair, Pacemaker, Tonsillectomy Additional Past Surgical History / Comment(s): triple bypass ([place] 2001), left hydrocele repair (child), cataracts, colonoscopies Past Anesthesia/Blood Transfusion Reactions: No Reported Reaction Type of Cardiac Device: Permanent Pacemaker Device Placement Date:: [facility] 2016 Past Psychological History: No Psychological Hx Reported Smoking Status: Former smoker Past Alcohol Use History: Occasional Additional Past Alcohol Use History / Comment(s): quit smoking 1992, started smoking age 16 smoked 1ppd Past Drug Use History: None Reported - Past Family History Mother Additional Family Medical History / Comment(s): heart problems Father Family Medical History: Cancer Additional Family Medical History / Comment(s): colon CA Son(s) Family Medical History: Cancer Brother(s) Family Medical History: Cancer Medications and Allergies Home Medications Medication Instructions Recorded Confirmed Type Atenolol [Tenormin] 50 mg PO QAM 06/07/14 04/19/19 History Digoxin [Digitek] 250 mcg PO QAM 06/07/14 04/19/19 History Tamsulosin [Flomax] 0.4 mg PO BID 06/07/14 04/19/19 History Furosemide [Lasix] 40 mg PO QAM 09/29/16 04/19/19 History Ipratropium/Albuterol Sulfate 1 puff INHALATION DIRECTED PRN 09/29/16 04/19/19 History [Combivent Respimat Inhaler] Lisinopril [Prinivil] 20 mg PO DAILY 09/29/16 04/19/19 History amLODIPine [Norvasc] 5 mg PO BID 09/29/16 04/19/19 History Iron Infusion 1 dose IV DIRECTED 04/15/17 04/19/19 History Multivitamin [Men's Multi-Vitamin] 1 each PO DAILY 07/29/17 04/19/19 History Linagliptin/Metformin HCl 1 each PO DAILY 04/17/19 04/19/19 History [Jentadueto 2.5 mg-1000 mg Tab] Potassium (Unknown Dose) 1 tab PO DIRECTED 04/17/19 04/19/19 History Allergies Allergy/AdvReac Type Severity Reaction Status Date / Time Penicillins Allergy Rash/Hives Verified 04/17/19 11:02 tetanus immune globulin AdvReac extreme Verified 04/17/19 11:02 swelling entire arm Surgical - Exam Vital Signs Temp Pulse Resp BP Pulse Ox 97.2 F L 63 18 152/65 95 04/19/19 09:57 04/19/19 09:57 04/19/19 09:57 04/19/19 09:57 04/19/19 09:57 - General well developed, well nourished, no distress - Eyes PERRL - ENT normal pinna - Neck no masses - Respiratory normal expansion - Cardiovascular Rhythm: regular - Abdomen Abdomen: soft, non tender Mildly prominent left axillary lymph nodes Results - Labs Abnormal Lab Results - Last 24 Hours (Table) 04/19/19 Range/Units 10:12 POC Glucose (mg/dL) 178 H (75-99) mg/dL Assessment and Plan Assessment: Left axillary of adenopathy. Patient will undergo open biopsy.
[2019-04-19 12:16] VITALS: TEMP 97.7
--- NOTE | 2019-04-19 12:28 | P.OP ---
Date of Procedure: 04/19/19 Preoperative Diagnosis: Left axillary lymphadenopathy Postoperative Diagnosis: Left axillary lymphadenopathy Procedure(s) Performed: Left axillary lymph node biopsy Anesthesia: LOAN Surgeon: Oswaldo Salazar Estimated Blood Loss (ml): 5 Pathology: other (Left axillary lymph node) Condition: stable Disposition: PACU Description of Procedure: Patient's placed the operative table in the supine position. He received general anesthesia. His left exam was prepped and draped in sterile fashion. A standard accident incision was made and then using cautery the subcu tissues were divided. The clavipectoral fascia was opened. The exam was examined. There was a large lymph node measured prostate 2 cm diameter. This was dissected free using Harmonic scissors. There was also enlarged fat pad in these illnesses dissected free and sent to pathology. The wound was inspected cyst. There is no bleeding seen. The skin was closed interrupted 3-0 Monocryl suture. A XAVIER drain was placed prior to skin closure. Patient top she will sent to recovery in stable condition.
[2019-04-19 12:48] VITALS: RESP 16
[2019-04-19 13:46] VITALS: BP 105/58; PULSE 60
== END ==
LOC: OR 09:29
PROVIDERS: ATTEND Surgery
DX: C85.94 Non-Hodgkin lymphoma, unspecified, lymph nodes of axilla and upper limb (principal); R59.0 Localized enlarged lymph nodes; I48.91 Unspecified atrial fibrillation; J44.9 Chronic obstructive pulmonary disease, unspecified; E11.9 Type 2 diabetes mellitus without complications; K21.9 Gastro-esophageal reflux disease without esophagitis; I10 Essential (primary) hypertension; M19.90 Unspecified osteoarthritis, unspecified site; R60.0 Localized edema; M48.00 Spinal stenosis, site unspecified; N40.0 Benign prostatic hyperplasia without lower urinary tract symptoms; Z85.46 Personal history of malignant neoplasm of prostate; Z92.3 Personal history of irradiation; Z86.010 Personal history of colon polyps; Z85.828 Personal history of other malignant neoplasm of skin; D53.9 Nutritional anemia, unspecified; Z95.1 Presence of aortocoronary bypass graft; Z90.49 Acquired absence of other specified parts of digestive tract; Z95.0 Presence of cardiac pacemaker; Z98.890 Other specified postprocedural states; Z98.49 Cataract extraction status, unspecified eye; Z87.891 Personal history of nicotine dependence; Z82.49 Family history of ischemic heart disease and other diseases of the circulatory system; Z80.0 Family history of malignant neoplasm of digestive organs; Z80.9 Family history of malignant neoplasm, unspecified; Z79.84 Long term (current) use of oral hypoglycemic drugs; Z79.899 Other long term (current) drug therapy; Z88.0 Allergy status to penicillin; Z88.7 Allergy status to serum and vaccine
CPT/HCPCS: 38525; 94640; J1644; J1100; J2405; J0690; J2001; J3010; J0330; J2704; 88305; 88341; 88342

== ENCOUNTER 2019-05-01 12:50 | Emergency (ER) | payer MEDICARE, BC ==
[2019-05-01 13:14] VITALS: BP 137/64; PULSE 62; RESP 20; TEMP 98.1
--- NOTE | 2019-05-01 14:15 | ED ---
General Adult HPI - General Chief complaint: Wound/Laceration Stated complaint: post op drain leaking/poss infection Time Seen by Provider: 05/01/19 13:51 Source: patient Mode of arrival: ambulatory Limitations: no limitations - History of Present Illness Initial comments: This 89-year-old white male presents with with the complaint of having some increased drainage from his left axillary wound. He states that he had lymph node removed from the left axilla 2 weeks ago. He had been draining approximately 40-50 mL per day out of his drain. This increased to approximately 100 mL per day over the last 2 days. He's had some mild drainage around the opening of the wound site where the drain is in placed as well. This is more of a yellowish type of drainage. There is been no swelling or erythema at the surgical site. There is been no fevers or chills. He has an appointment to follow-up with Dr. Salazar tomorrow. 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 - Related Data Home Medications Medication Instructions Recorded Confirmed Atenolol [Tenormin] 50 mg PO QAM 06/07/14 04/19/19 Digoxin [Digitek] 250 mcg PO QAM 06/07/14 04/19/19 Tamsulosin [Flomax] 0.4 mg PO BID 06/07/14 04/19/19 Furosemide [Lasix] 40 mg PO QAM 09/29/16 04/19/19 Ipratropium/Albuterol Sulfate 1 puff INHALATION DIRECTED PRN 09/29/16 04/19/19 [Combivent Respimat Inhaler] Lisinopril [Prinivil] 20 mg PO DAILY 09/29/16 04/19/19 amLODIPine [Norvasc] 5 mg PO BID 09/29/16 04/19/19 Iron Infusion 1 dose IV DIRECTED 04/15/17 04/19/19 Multivitamin [Men's Multi-Vitamin] 1 each PO DAILY 07/29/17 04/19/19 Linagliptin/Metformin HCl 1 each PO DAILY 04/17/19 04/19/19 [Jentadueto 2.5 mg-1000 mg Tab] Potassium (Unknown Dose) 1 tab PO DIRECTED 04/17/19 04/19/19 Previous Rx's Medication Instructions Recorded Docusate [Colace] 100 mg PO BID #20 capsule 04/19/19 HYDROcodone/APAP 5-325MG [[place] 1 tab PO Q6HR PRN #10 tab 04/19/19 5-325] Levofloxacin [Levaquin] 500 mg PO DAILY 7 Days #7 tab 05/01/19 Allergies Allergy/AdvReac Type Severity Reaction Status Date / Time Penicillins Allergy Rash/Hives Verified 05/01/19 13:14 tetanus immune globulin AdvReac extreme Verified 05/01/19 13:14 swelling entire arm Review of Systems ROS Statement: Those systems with pertinent positive or pertinent negative responses have been documented in the HPI. ROS Other: All systems not noted in ROS Statement are negative. Past Medical History Past Medical History: Atrial Fibrillation, Cancer, COPD, Diabetes Mellitus, GERD/Reflux, Hypertension, Osteoarthritis (OA), Prostate Disorder, Skin Disorder Additional Past Medical History / Comment(s): hx. colon polyps, endocarditis, spinal stenosis, hx. prostate cancer-had radiation & seed implants, edema jr legs,skin CA scalp, chronic anemia -receives iron transfusions., lump left axilla History of Any Multi-Drug Resistant Organisms: None Reported Past Surgical History: Adenoidectomy, Appendectomy, Cholecystectomy, Coronary Bypass/CABG, Heart Catheterization, Hernia Repair, Pacemaker, Tonsillectomy Additional Past Surgical History / Comment(s): triple bypass (2001), left hydrocele repair (child), cataracts, colonoscopies Past Anesthesia/Blood Transfusion Reactions: No Reported Reaction Type of Cardiac Device: Permanent Pacemaker Device Placement Date:: 2016 Past Psychological History: No Psychological Hx Reported Smoking Status: Former smoker Past Alcohol Use History: Occasional Past Drug Use History: None Reported - Past Family History Mother Additional Family Medical History / Comment(s): heart problems Father Family Medical History: Cancer Additional Family Medical History / Comment(s): colon CA Son(s) Family Medical History: Cancer Brother(s) Family Medical History: Cancer General Exam Limitations: no limitations General appearance: alert, in no apparent distress Extremities exam: Present: normal inspection, full ROM. Absent: tenderness Psychiatric exam: Present: normal affect, normal mood Skin exam: Absent: other (There is a well-healing postsurgical horizontal scar noted in the proximal axilla. There appears to be a meshlike material with Dermabond applied over the wound. This appears to be healing quite well and there is no associated erythema or swelling or tenderness noted.) Course Vital Signs 05/01/19 13:10 Temperature 98.1 F Pulse Rate 62 Respiratory 20 Rate Blood Pressure 137/64 O2 Sat by Pulse 98 Oximetry Medical Decision Making - Medical Decision Making The patient was seen and examined. The old records were reviewed. Case is discussed with his surgeon and he would like to place him on Levaquin. The patient appears to be stable for discharge and follow-up in the office tomorrow. Disposition Clinical Impression: Encounter for wound re-check, Lymphoma Disposition: HOME SELF-CARE Condition: Good Instructions (If sedation given, give patient instructions): Skin Adhesive Care (ED) Additional Instructions: Please follow-up with Dr. Salazar tomorrow as scheduled. Prescriptions: Levofloxacin [Levaquin] 500 mg PO DAILY 7 Days #7 tab Is patient prescribed a controlled substance at d/c from ED?: No Referrals: Harvey Apple MD [Primary Care Provider] - As Soon As Possible Oswaldo Salazar MD [STAFF PHYSICIAN] - 05/02/19 Time of Disposition: 14:14
== END 2019-05-01 14:51 | disposition home or self-care (01) ==
LOC: EC 12:50
DX: C85.90 Non-Hodgkin lymphoma, unspecified, unspecified site (principal); Z48.00 Encounter for change or removal of nonsurgical wound dressing; I48.91 Unspecified atrial fibrillation; J44.9 Chronic obstructive pulmonary disease, unspecified; E11.9 Type 2 diabetes mellitus without complications; M19.90 Unspecified osteoarthritis, unspecified site; D64.9 Anemia, unspecified; Z79.84 Long term (current) use of oral hypoglycemic drugs; Z79.899 Other long term (current) drug therapy; Z87.891 Personal history of nicotine dependence; Z88.0 Allergy status to penicillin; Z88.7 Allergy status to serum and vaccine; Z85.46 Personal history of malignant neoplasm of prostate; Z85.828 Personal history of other malignant neoplasm of skin; Z95.1 Presence of aortocoronary bypass graft; Z90.49 Acquired absence of other specified parts of digestive tract; Z95.5 Presence of coronary angioplasty implant and graft; Z95.0 Presence of cardiac pacemaker; Z98.890 Other specified postprocedural states
CPT/HCPCS: 99283

== ENCOUNTER → 2019-05-05 | Outpatient (CLI) | payer MEDICARE, BC ==
--- NOTE | 2019-05-06 08:01 | ECHOF ---
Referral Reason:Z01.818 preprocedural exam MEASUREMENTS -------- HEIGHT: 175.3 cm WEIGHT: 81.6 kg BP: RVIDd: 3.9 cm (< 3.3) IVSd: 1.3 cm (0.6 - 1.1) LVIDd: 5.0 cm (3.9 - 5.3) LVPWd: 1.6 cm (0.6 - 1.1) IVSs: 1.8 cm LVIDs: 3.4 cm LVPWs: 1.6 cm LA Diam: 4.1 cm (2.7 - 3.8) Ao Diam: 3.2 cm (2.0 - 3.7) AV Cusp: 1.9 cm (1.5 - 2.6) MV EXCURSION: 27.766 mm (> 18.000) MV EF SLOPE: 54 mm/s (70 - 150) EPSS: 0.5 cm MV E Lorenzo: 1.05 m/s MV DecT: 191 ms MV A Lorenzo: 0.35 m/s MV E/A Ratio: 3.02 RAP: 5.00 mmHg RVSP: 47.38 mmHg FINDINGS -------- Paced rhythm. This was a technically good study. The left ventricular size is normal. Left ventricular wall thickness is normal. Overall left vent ricular systolic function is low-normal with, an EF between 50 - 55 %. Left ventricular fillimg pre ssure cannot be estimated due to paced rhythm. The right ventricle is mild to moderately enlarged. The left atrium is mildly dilated. The right atrial size is normal. There is mild aortic valve sclerosis. There is no evidence of aortic regurgitation. Mild mitral annular calcification present. Mild mitral regurgitation is present. Moderate tricuspid regurgitation present. There is no evidence of pulmonary hypertension. The rig ht ventricular systolic pressure, as measured by Doppler, is 47.38mmHg. There is no pulmonic regurgitation present. The aortic root size is normal. CONCLUSIONS -------- 1. Paced rhythm. 2. This was a technically good study. 3. The left ventricular size is normal. 4. Left ventricular wall thickness is normal. 5. Overall left ventricular systolic function is low-normal with, an EF between 50 - 55 %. 6. Left ventricular fillimg pressure cannot be estimated due to paced rhythm. 7. The right ventricle is mild to moderately enlarged. 8. The left atrium is mildly dilated. 9. The right atrial size is normal. 10. There is mild aortic valve sclerosis. 11. Mild mitral annular calcification present. 12. Mild mitral regurgitation is present. 13. Moderate tricuspid regurgitation present. 14. There is no evidence of pulmonary hypertension. 15. The right ventricular systolic pressure, as measured by Doppler, is 47.38mmHg. 16. There is no pulmonic regurgitation present. 17. The aortic root size is normal. CT TECHNICIAN: Daisha Martins RDCS
== END | disposition home or self-care (01) ==
LOC: RADECHMAIN 11:47
PROVIDERS: ATTEND Internal Medicine Hematology & Oncology
DX: I08.1 Rheumatic disorders of both mitral and tricuspid valves (principal); Z88.7 Allergy status to serum and vaccine
CPT/HCPCS: 93306

== ENCOUNTER → 2019-05-06 | Outpatient (CLI) | payer MEDICARE, BC ==
--- NOTE | 2019-05-08 09:30 | PE ---
EXAMINATION TYPE: PET CT fusion skull to thigh DATE OF EXAM: 05/06/2019 COMPARISON: CT of the chest, abdomen, and pelvis dated 10/05/2018 HISTORY: Biopsy-proven lymphoma with prior biopsy and 04/19/2019. History also includes prostate cance r, squamous cell carcinoma of the head and diabetes. Initial treatment strategy. TECHNIQUE: Following the intravenous administration of 11.19 mCi of F-18 FDG, whole body images are performed from the skull base to the midthigh. Images are reviewed on the computer in the coronal, a xial, and sagittal planes. Reconstructed rotating images are created on independent workstation and reviewed on the computer. A localization and attenuation correction CT is performed in conjunction with the PET scan. SCAN: Initial treatment strategy. FINDINGS: Mediastinal background: 1.72 Abdominal background: 2.52 SKULL BASE AND NECK: No suspicious hypermetabolic uptake. CHEST, MEDIASTINUM, AND HILAR REGION: The progressively enlarged left axillary lymph node that measur ed 1.2 cm on the exam of 10/05/2018 now measures 2.1 cm in short axis. This is recently biopsy-proven as lymphoma. Adjacent left-sided surgical drain is seen. The maximum SUV of this lymph node measures 13.44. Just cranial to this a subpectoral lymph node on image 83 measures 6 mm in short axis and is h ypermetabolic with a maximum SUV of 6.76. Just posterior to this and cranial to this anterior to the subscapularis muscle on image 79 there is a hypermetabolic 7 mm short axis lymph node that has a maxi mum SUV of 2.38. ABDOMEN AND PELVIS: No suspicious hypermetabolic uptake. OSSEOUS STRUCTURES: At T4 there is focal hypermetabolic uptake that is mild in just above mediastinal background with a maximum SUV of 2.19. Remainder the spine has maximum SUVs ranging from 1.2-1.67. N o associated sclerotic or lytic lesion on CT. OTHER CT: Severe atherosclerosis of the carotid arteries. Moderate atherosclerosis of the thoracic ao rta and post CABG change. Severe atherosclerosis of the three affiliated coronary arteries. Calcified hilar gra nulomas. Cardiomegaly is seen without pericardial effusion. Pericardial calcifications, most typicall y sequela of prior pericarditis. No new mediastinal adenopathy. New trace right pleural effusion. Per ipheral fibrotic changes in the lungs. Benign scattered calcified granulomas. Background mild parasep keke emphysematous change. Redemonstration of a simple appearing right hepatic cyst similar to the prior. Small amount of perihe patic ascites and irregular contour the liver again suggesting underlying hepatocellular disease. Gal lbladder surgically absent. Calcifications of the pancreas are compatible with chronic pancreatitis. Remainder the pancreas is poorly visualized without contrast. Spleen is enlarged measuring 16 cm in l ongitudinal dimension. Redemonstration of a macroscopic fat-containing left adrenal gland lesion, adr enal myolipoma. Left renal cyst measures approximately 1.8 cm. No hydronephrosis of either kidney. Se skyler atherosclerosis of the abdominal aorta and its branches. Prosthetic radiation brachytherapy seed s are again seen. Left inguinal canal is patulous and fat filled. IMPRESSION: 1. Hypermetabolic uptake within 3 high left axillary lymph nodes, enlarged from the prior exam of 09/22. Deauville criteria score 4. No other suspicious enlarged or hypermetabolic lymph nodes within the remainder the chest, abdomen or pelvis. 2. Mild hypermetabolic uptake of the T4 vertebral body with no convincing sclerotic or lytic lesion o n CT. This could relate therefore to multifocal degenerative change however MRI of the thoracic spine could be performed to assess for any underlying osseous lesion. 3. Redemonstration of hepatocellular disease and trace amount of perihepatic ascites with splenomegal y, typically sequela portal venous hypertension.
== END | disposition home or self-care (01) ==
LOC: RADPETMAIN 10:28
PROVIDERS: ATTEND Internal Medicine Hematology & Oncology
DX: K76.89 Other specified diseases of liver (principal); R59.9 Enlarged lymph nodes, unspecified; R90.89 Other abnormal findings on diagnostic imaging of central nervous system; C96.Z Other specified malignant neoplasms of lymphoid, hematopoietic and related tissue
CPT/HCPCS: 78815; A9552

== ENCOUNTER → 2019-11-13 | Outpatient (CLI) | payer MEDICARE, BC ==
--- NOTE | 2019-11-13 11:04 | XR ---
EXAMINATION TYPE: XR chest 2V DATE OF EXAM: 11/13/2019 COMPARISON: 07/19/2019 TECHNIQUE: PA and lateral views submitted. HISTORY: Shortness of breath FINDINGS: Hyperinflation noted with postoperative change and cardiac device. Bilateral infiltrate and pleural e ffusion with diffuse interstitial pattern. No pneumothorax. Arthropathy of the shoulders. Hypertrophi c and degenerative change of the spine. Epicardial lead noted. There is an 8 mm nodule at the right l randy base stable and likely on the basis of a granuloma IMPRESSION: 1. COPD with superimposed CHF. Underlying pneumonia not excluded. 2. Stable 8 mm nodule right lung base likely related to granuloma.
== END | disposition home or self-care (01) ==
LOC: RADXRMAIN 10:45
PROVIDERS: ATTEND Nurse Practitioner
DX: J44.9 Chronic obstructive pulmonary disease, unspecified (principal); I50.9 Heart failure, unspecified; R91.1 Solitary pulmonary nodule; C85.90 Non-Hodgkin lymphoma, unspecified, unspecified site; I48.20 Chronic atrial fibrillation, unspecified
CPT/HCPCS: 71046

== ENCOUNTER → 2019-12-27 | Outpatient (CLI) | payer MEDICARE, BC ==
--- NOTE | 2019-12-27 09:13 | US ---
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 EXAM MEASUREMENTS: Liver Length: 18.1 cm Gallbladder Wall: surgically absent CBD: 0.3 cm Right Kidney: 10.8 x 5.6 x 5.2 cm Pancreas: obscured by overlying midline bowel gas Liver: enlarged, mildly heterogeneous, 1.2cm cyst right lobe Gallbladder: surgically absent Evidence for sonographic Larson's sign: no CBD: wnl Right Kidney: wnl Small amount of free fluid in RUQ IMPRESSION: 1. Postcholecystectomy. 2. Small amount of free fluid within the right upper quadrant is nonspecific should be correlated cli nically. 3. Hepatomegaly correlate for hepatocellular disease or hepatitis.
[2019-12-27 09:57] LABS: HCT 32.5 % (39.0-53.0); HGB 10.5 gm/dL (13.0-17.5); Hypochromasia Slight; MCH 29.3 pg (25.0-35.0); MCHC 32.2 g/dL (31.0-37.0); MCV 91.1 fL (80.0-100.0); Mean Platelet Volume 8.2; Platelet Count 125 k/uL (150-450); RBC 3.57 m/uL (4.30-5.90); WBC 3.4 k/uL (3.8-10.6)
[2019-12-27 10:24] LABS: Calcium 9.1 mg/dL (8.4-10.2); Potassium 4.6 mmol/L (3.5-5.1); Total Bilirubin 0.8 mg/dL (0.2-1.3)
== END | disposition home or self-care (01) ==
LOC: RADUSWWP 08:19
PROVIDERS: ATTEND Internal Medicine Gastroenterology
DX: Z98.890 Other specified postprocedural states (principal); R16.0 Hepatomegaly, not elsewhere classified; K74.60 Unspecified cirrhosis of liver
CPT/HCPCS: 76705; 80053; 82105; 85027

== ENCOUNTER → 2020-01-22 | Outpatient (CLI) | payer MEDICARE, BC | END | disposition home or self-care (01) | LOC: LABWHC1 15:43 | PROVIDERS: ATTEND Family Medicine | DX: Z20.828 Contact with and (suspected) exposure to other viral communicable diseases (principal) | CPT/HCPCS: U0003; C9803 ==

== ENCOUNTER 2020-01-27 08:28 | Inpatient (IN) | payer MEDICARE, BC ==
[2020-01-27] MEDS ORDERED: ALBUTEROL HFA INHALER INHALATION STA (08:47)
[2020-01-27] MEDS ORDERED: methylPREDNISolone SOD SUCCI 125 MG/2 ML VIAL IV STA (08:47)
[2020-01-27] MEDS ORDERED: SODIUM CHLORIDE 0.9% 1,000 ML IV STA (08:47)
--- NOTE | 2020-01-27 08:55 | ED ---
SOB HPI - General Chief Complaint: Shortness of Breath Stated Complaint: SOB, Covid + Time Seen by Provider: 01/27/20 08:28 Source: patient, EMS, RN notes reviewed Mode of arrival: EMS Limitations: no limitations - History of Present Illness Initial Comments: This 89-year-old male was brought in by EMS this morning and shortness of breath cough with phlegm production. He's been having shortness breath or past several days he was tested for St[place] virus and January 21 and was positive. He's been coughing up yellow phlegm with blood in it. More than a teaspoon he states he had a pulse ox in the 60s this morning. He also complains of increased fatigue and intermittent fevers. He has any history of COPD. MD Complaint: shortness of breath, cough - Related Data Home Medications Medication Instructions Recorded Confirmed Digoxin [Digitek] 250 mcg PO QAM 06/07/14 01/27/20 Tamsulosin [Flomax] 0.4 mg PO BID 06/07/14 01/27/20 atenoloL [Tenormin] 50 mg PO QAM 06/07/14 01/27/20 Furosemide [Lasix] 40 mg PO QAM 09/29/16 01/27/20 Ipratropium/Albuterol Sulfate 1 puff INHALATION RT-QID PRN 09/29/16 01/27/20 [Combivent Respimat Inhaler] amLODIPine [Norvasc] 5 mg PO DAILY 09/29/16 01/27/20 Multivitamin [Men's Multi-Vitamin] 1 tab PO DAILY 07/29/17 01/27/20 Potassium Chloride [Klor-Con 20] 20 meq PO HS 01/27/20 01/27/20 Allergies Allergy/AdvReac Type Severity Reaction Status Date / Time Penicillins Allergy Rash/Hives Verified 01/27/20 13:05 tetanus immune globulin AdvReac extreme Verified 01/27/20 13:05 swelling entire arm Review of Systems ROS Statement: Those systems with pertinent positive or pertinent negative responses have been documented in the HPI. ROS Other: All systems not noted in ROS Statement are negative. Past Medical History Past Medical History: Atrial Fibrillation, Cancer, COPD, Diabetes Mellitus, GERD/Reflux, Hypertension, Osteoarthritis (OA), Prostate Disorder, Skin Disorder Additional Past Medical History / Comment(s): hx. colon polyps, endocarditis, s barbie stenosis, hx. prostate cancer-had radiation & seed implants, edema jr legs,skin CA scalp, chronic anemia -receives iron transfusions., lump left axilla History of Any Multi-Drug Resistant Organisms: None Reported Past Surgical History: Adenoidectomy, Appendectomy, Cholecystectomy, Coronary Bypass/CABG, Heart Catheterization, Hernia Repair, Pacemaker, Tonsillectomy Additional Past Surgical History / Comment(s): triple bypass ([place] 2001), left hydrocele repair (child), cataracts, colonoscopies Past Anesthesia/Blood Transfusion Reactions: No Reported Reaction Type of Cardiac Device: Permanent Pacemaker Device Placement Date:: [facility]2016 Past Psychological History: No Psychological Hx Reported Smoking Status: Former smoker Past Alcohol Use History: Occasional Past Drug Use History: None Reported - Past Family History Mother Additional Family Medical History / Comment(s): heart problems Father Family Medical History: Cancer Additional Family Medical History / Comment(s): colon CA Son(s) Family Medical History: Cancer Brother(s) Family Medical History: Cancer General Exam - General Exam Comments Initial Comments: This is a well-developed well-nourished awake alert oriented 3 male Limitations: no limitations General appearance: alert, anxious Head exam: Present: atraumatic, normocephalic, normal inspection Eye exam: Present: normal appearance, PERRL, EOMI. Absent: scleral icterus, conjunctival injection, periorbital swelling ENT exam: Present: mucous membranes dry Neck exam: Present: normal inspection, full ROM, other (No stridor JVD or bruits). Absent: tenderness, meningismus, lymphadenopathy Respiratory exam: Present: decreased breath sounds. Absent: respiratory distress, wheezes, rales, rhonchi (Especially on the right), stridor Cardiovascular Exam: Present: regular rate, normal rhythm, normal heart sounds. Absent: systolic murmur, diastolic murmur, rubs, gallop, clicks GI/Abdominal exam: Present: soft, normal bowel sounds. Absent: distended, tenderness, guarding, rebound, rigid Extremities exam: Present: normal inspection, full ROM, normal capillary refill. Absent: tenderness, pedal edema, joint swelling, calf tenderness Back exam: Present: normal inspection Neurological exam: Present: alert, oriented X3, CN II-XII intact Psychiatric exam: Present: normal affect, normal mood Skin exam: Present: warm, dry, intact, normal color. Absent: rash Course Vital Signs 01/27/20 08:31 Temperature 98 F Pulse Rate 71 Respiratory 20 Rate Blood Pressure 162/69 O2 Sat by Pulse 95 Oximetry - Reevaluation(s) Reevaluation #1: 01/27/20 13:30 I did reevaluate patient several occasions she demonstrates no new symptoms. Still having cough with yellow phlegm. Medical Decision Making - Medical Decision Making I did discuss the findings with the patient as well as with Dr. Hicks. Patient will be admitted for inpatient treatment and care for rotavirus as well as COPD exacerbation palpation treatment failure. Consultation with pulmonary medicine - Lab Data Result diagrams: 01/27/20 09:00 01/27/20 09:00 Lab Results 01/27/20 01/27/20 01/27/20 Range/Units 09:00 09:00 09:00 WBC 6.1 (3.8-10.6) k/uL RBC 3.81 L (4.30-5.90) m/uL Hgb 10.9 L (13.0-17.5) gm/dL Hct 32.7 L (39.0-53.0) % MCV 85.9 D (80.0-100.0) fL MCH 28.7 (25.0-35.0) pg MCHC 33.4 (31.0-37.0) g/dL RDW 15.2 (11.5-15.5) % Plt Count 158 (150-450) k/uL MPV 8.2 Neutrophils % 91 % Lymphocytes % 3 % Monocytes % 4 % Eosinophils % 1 % Basophils % 1 % Neutrophils # 5.5 (1.3-7.7) k/uL Lymphocytes # 0.2 L (1.0-4.8) k/uL Monocytes # 0.3 (0-1.0) k/uL Eosinophils # 0.0 (0-0.7) k/uL Basophils # 0.0 (0-0.2) k/uL PT 11.0 (9.0-12.0) sec INR 1.1 (<1.2) APTT 23.3 (22.0-30.0) sec D-Dimer 2.72 H (<0.60) mg/L FEU Sodium 132 L (137-145) mmol/L Potassium 4.3 (3.5-5.1) mmol/L Chloride 96 L (98-107) mmol/L Carbon Dioxide 30 (22-30) mmol/L Anion Gap 6 mmol/L BUN 37 H (9-20) mg/dL Creatinine 0.96 (0.66-1.25) mg/dL Est GFR (CKD-EPI)AfAm 82 (>60 ml/min/1.73 sqM) Est GFR (CKD-EPI)NonAf 71 (>60 ml/min/1.73 sqM) Glucose 259 H (74-99) mg/dL Plasma Lactic Acid Caleb (0.7-2.0) mmol/L Calcium 8.7 (8.4-10.2) mg/dL Magnesium 1.9 (1.6-2.3) mg/dL Total Bilirubin 0.8 (0.2-1.3) mg/dL AST 32 (17-59) U/L ALT 18 (4-49) U/L Alkaline Phosphatase 68 (38-126) U/L Lactate Dehydrogenase 1034 H (313-618) U/L Creatine Kinase 34 L (55-170) U/L Troponin I (0.000-0.034) ng/mL C-Reactive Protein 47.8 H (<10.0) mg/L NT-Pro-B Natriuret Pep pg/mL Total Protein 6.5 (6.3-8.2) g/dL Albumin 3.4 L (3.5-5.0) g/dL Influenza Type A RNA (Not Detectd) Influenza Type B (PCR) (Not Detectd) 01/27/20 01/27/20 01/27/20 Range/Units 09:00 09:00 09:00 WBC (3.8-10.6) k/uL RBC (4.30-5.90) m/uL Hgb (13.0-17.5) gm/dL Hct (39.0-53.0) % MCV (80.0-100.0) fL MCH (25.0-35.0) pg MCHC (31.0-37.0) g/dL RDW (11.5-15.5) % Plt Count (150-450) k/uL MPV Neutrophils % % Lymphocytes % % Monocytes % % Eosinophils % % Basophils % % Neutrophils # (1.3-7.7) k/uL Lymphocytes # (1.0-4.8) k/uL Monocytes # (0-1.0) k/uL Eosinophils # (0-0.7) k/uL Basophils # (0-0.2) k/uL PT (9.0-12.0) sec INR (<1.2) APTT (22.0-30.0) sec D-Dimer (<0.60) mg/L FEU Sodium (137-145) mmol/L Potassium (3.5-5.1) mmol/L Chloride (98-107) mmol/L Carbon Dioxide (22-30) mmol/L Anion Gap mmol/L BUN (9-20) mg/dL Creatinine (0.66-1.25) mg/dL Est GFR (CKD-EPI)AfAm (>60 ml/min/1.73 sqM) Est GFR (CKD-EPI)NonAf (>60 ml/min/1.73 sqM) Glucose (74-99) mg/dL Plasma Lactic Acid Caleb 1.5 (0.7-2.0) mmol/L Calcium (8.4-10.2) mg/dL Magnesium (1.6-2.3) mg/dL Total Bilirubin (0.2-1.3) mg/dL AST (17-59) U/L ALT (4-49) U/L Alkaline Phosphatase (38-126) U/L Lactate Dehydrogenase (313-618) U/L Creatine Kinase (55-170) U/L Troponin I 0.020 (0.000-0.034) ng/mL C-Reactive Protein (<10.0) mg/L NT-Pro-B Natriuret Pep 1690 pg/mL Total Protein (6.3-8.2) g/dL Albumin (3.5-5.0) g/dL Influenza Type A RNA (Not Detectd) Influenza Type B (PCR) (Not Detectd) 01/27/20 Range/Units 09:08 WBC (3.8-10.6) k/uL RBC (4.30-5.90) m/uL Hgb (13.0-17.5) gm/dL Hct (39.0-53.0) % MCV (80.0-100.0) fL MCH (25.0-35.0) pg MCHC (31.0-37.0) g/dL RDW (11.5-15.5) % Plt Count (150-450) k/uL MPV Neutrophils % % Lymphocytes % % Monocytes % % Eosinophils % % Basophils % % Neutrophils # (1.3-7.7) k/uL Lymphocytes # (1.0-4.8) k/uL Monocytes # (0-1.0) k/uL Eosinophils # (0-0.7) k/uL Basophils # (0-0.2) k/uL PT (9.0-12.0) sec INR (<1.2) APTT (22.0-30.0) sec D-Dimer (<0.60) mg/L FEU Sodium (137-145) mmol/L Potassium (3.5-5.1) mmol/L Chloride (98-107) mmol/L Carbon Dioxide (22-30) mmol/L Anion Gap mmol/L BUN (9-20) mg/dL Creatinine (0.66-1.25) mg/dL Est GFR (CKD-EPI)AfAm (>60 ml/min/1.73 sqM) Est GFR (CKD-EPI)NonAf (>60 ml/min/1.73 sqM) Glucose (74-99) mg/dL Plasma Lactic Acid Caleb (0.7-2.0) mmol/L Calcium (8.4-10.2) mg/dL Magnesium (1.6-2.3) mg/dL Total Bilirubin (0.2-1.3) mg/dL AST (17-59) U/L ALT (4-49) U/L Alkaline Phosphatase (38-126) U/L Lactate Dehydrogenase (313-618) U/L Creatine Kinase (55-170) U/L Troponin I (0.000-0.034) ng/mL C-Reactive Protein (<10.0) mg/L NT-Pro-B Natriuret Pep pg/mL Total Protein (6.3-8.2) g/dL Albumin (3.5-5.0) g/dL Influenza Type A RNA Not Detected (Not Detectd) Influenza Type B (PCR) Not Detected (Not Detectd) - EKG Data -: EKG Interpreted by Me EKG Comments: Pacemaker rhythm at 60 QRS was 78 daily since QTC 480/480 - Radiology Data Radiology results: report reviewed (Image reviewed. Right-sided infiltrate noted. CAT scan shows no definite evidence of PE.), image reviewed Critical Care Time Critical Care Time: Yes Total Critical Care Time: 31 Critical Care Time: 31 minutes of critical care time which includes initial presentation with hi story physical labs x-rays multiple reevaluation the patient. Review of old charting discussed with the patient regarding findings discussion with the admitting physician admission orders and documentation of the above Disposition Clinical Impression: COVID-19, Pneumonia, Hypoxemia, Failure of outpatient treatment Disposition: ADMITTED IP TO THIS [facility] Condition: Fair Referrals: Harvey Apple MD [Primary Care Provider] - 1-2 days
[2020-01-27 09:42] LABS: Basophils % (A) 1 %; Eosinophils % (A) 1 %; HCT 32.7 % (39.0-53.0); HGB 10.9 gm/dL (13.0-17.5); Lymphocytes # (A) 0.2 k/uL (1.0-4.8); Lymphocytes % (A) 3 %; MCH 28.7 pg (25.0-35.0); MCHC 33.4 g/dL (31.0-37.0); Mean Platelet Volume 8.2; Monocytes # (A) 0.3 k/uL (0-1.0); Monocytes % (A) 4 %; Neutrophils # (A) 5.5 k/uL (1.3-7.7); Neutrophils % (A) 91 %; Platelet Count 158 k/uL (150-450); RBC 3.81 m/uL (4.30-5.90); RDW 15.2 % (11.5-15.5); WBC 6.1 k/uL (3.8-10.6)
[2020-01-27 09:54] LABS: MCV 85.9 fL (80.0-100.0)
[2020-01-27 10:02] LABS: Albumin 3.4 g/dL (3.5-5.0); C Reactive Protein 47.8 mg/L (<10.0); Calcium 8.7 mg/dL (8.4-10.2); Magnesium 1.9 mg/dL (1.6-2.3); Potassium 4.3 mmol/L (3.5-5.1); Total Bilirubin 0.8 mg/dL (0.2-1.3); Total Protein 6.5 g/dL (6.3-8.2)
--- NOTE | 2020-01-27 10:02 | XR ---
EXAMINATION TYPE: XR chest 1V portable DATE OF EXAM: 01/27/2020 Comparison: 11/13/2019 Clinical History: 89-year-old male Suspected COVID-19 pneumonia Findings: Median sternotomy wires and post-CABG clips. Left anterior chest wall pacemaker generator with right atrial and right ventricular leads. Heart mildly enlarged. Extensive airspace disease throughout the right side of the lung and patchy changes on the left. No sizable effusion. Impression: Extensive airspace disease throughout the right lung and patchy changes on the left. Correlate for at ypical pulmonary edema, multifocal pneumonia, or atypical pneumonias.
[2020-01-27 10:03] LABS: INR 1.1 (<1.2); Partial Thromboplastin Time 23.3 sec (22.0-30.0)
[2020-01-27 10:10] LABS: D-Dimer 2.72 mg/L FEU (<0.60)
[2020-01-27] MEDS ORDERED: HYDROmorphone 1 MG/ML 1 ML SYRINGE IVP STA (11:36)
--- NOTE | 2020-01-27 12:01 | CT ---
EXAMINATION TYPE: CT angio chest DATE OF EXAM: 01/27/2020 COMPARISON: 10/05/2018 HISTORY: 89-year-old male sob, covid positive TECHNIQUE: Contiguous axial scanning of the chest performed with IV Contrast, patient injected with 1 00 mL of Isovue 370. Coronal/sagittal MIP reconstructions performed. CT DLP: 463.4 mGycm Automated exposure control for dose reduction was used. FINDINGS: Median sternotomy wires. Left anterior chest wall pacemaker generator with right atrial and right sachi tricular leads. A prominent 9 mm high left axillary lymph node was previously larger at 1.2 cm. Heart limits of normal in size without pericardial effusion. Aorta normal caliber with mild to moderate atherosclerotic calcifications in the arch and descending thoracic aorta. Mildly enlarged mediastinal lymph nodes measuring up to 1.3 cm and the lower paratracheal region on e ither side. Enlarged right hilar lymph node and 1.8 cm, unchanged from 10/05/2018 likely chronic react jayashree/post inflammatory etiology. Subcarinal lymph node is larger at 1.5 cm. Extensive calcified left h ilar lymph nodes compatible with prior granulomatous disease. Satisfactory opacification of the pulmonary artery system. Large caliber to the main right and left p ulmonary arteries measuring 2.7 and 2.8 cm, respectively, suggesting underlying pulmonary arterial hy pertension. There is breathing motion artifact in the lower lungs assessment of the segmental branche s of the inferior lingula, right middle lobe, and bilateral basilar lower lobes. Multifocal patchy groundglass in the periphery of the left lung. Extensive groundglass opacification throughout the right lung. Small right pleural effusion. Multiple calcified granulomas in the lungs. Reflux of contrast into the hepatic veins. Spleen enlarged at 16.6 cm. Bones: Mild degenerative change at the shoulders. IMPRESSION: 1. BREATHING MOTION IN THE LOWER LUNGS LIMITS ASSESSMENT OF THE SMALL PULMONARY ARTERIES HERE. NO LAR GE CENTRAL OR LOBAR BRANCH EMBOLUS AND NO EVIDENCE FOR PULMONARY EMBOLUS WITHIN THE REMAINDER OF THE UPPER OR MID LUNGS. 2. EXTENSIVE DIFFUSE GROUNDGLASS THROUGHOUT THE RIGHT LUNG AND PATCHY GROUNDGLASS INFILTRATES THROUGH OUT THE PERIPHERY OF THE LEFT LUNG. CONSIDER COVID PNEUMONIA, HYPERSENSITIVITY PNEUMONITIS, OR DEVELO PING PULMONARY EDEMA. 3. SMALL RIGHT PLEURAL EFFUSION. PULMONARY ARTERIAL HYPERTENSION. PRIOR GRANULOMATOUS DISEASE. 4. MILDLY ENLARGED MEDIASTINAL LYMPH NODES MEASURING UP TO 1.5 CM, INCREASED FROM 10/05/2018, PROBABLY REACTIVE/POST INFLAMMATORY. FOLLOW-UP IN 3 MONTHS TO ENSURE STABILITY/RESOLUTION.
[2020-01-27] MEDS ORDERED: NALOXONE 0.4 MG/ML 1 ML VIAL IV PRN (13:33)
[2020-01-27] MEDS ORDERED: dexAMETHasone 2 MG TAB PO ONE (13:39)
[2020-01-27] MEDS ORDERED: TIOTROPIUM 18 MCG/PUFF INHALER INHALATION PRN (14:08)
[2020-01-27] MEDS: SODIUM CHLORIDE 0.9% 1,000 ML IV SCH (15:06)
[2020-01-27 18:28] LABS: Ferritin 1229.5 ng/mL (22.0-322.0)
[2020-01-27] MEDS: ALBUTEROL HFA INHALER INHALATION PRN (19:54)
[2020-01-27] MEDS: POTASSIUM CHLORIDE ER 20 MEQ TAB.ER PO SCH (20:21)
[2020-01-27] MEDS: TAMSULOSIN 0.4 MG CAP.ER.24H PO SCH (20:21)
[2020-01-28] MEDS: ACETAMINOPHEN TAB 325 MG TAB PO PRN ×2 (00:55→11:38)
[2020-01-28] MEDS: SODIUM CHLORIDE 0.9% 1,000 ML IV SCH ×3 (00:55→20:52)
[2020-01-28 07:24] LABS: Glucose,Whole Blood 483 mg/dL (75-99)
[2020-01-28] MEDS ORDERED: INSULIN ASPART (NovoLOG) 100 UNIT/ML VIAL SQ ONE (08:00)
[2020-01-28] MEDS: DIGOXIN 250 MCG TAB PO SCH (08:21)
[2020-01-28] MEDS: TAMSULOSIN 0.4 MG CAP.ER.24H PO SCH ×2 (08:21→20:51)
[2020-01-28] MEDS: MULTIVITAMINS, THERA 1 EACH TAB PO SCH (08:21)
[2020-01-28] MEDS: atenoloL 50 MG TAB PO SCH (08:21)
[2020-01-28] MEDS: CHOLECALCIFEROL 1,000 UNIT TAB PO SCH (08:21)
[2020-01-28] MEDS: amLODIPine 5 MG TAB PO SCH (08:21)
[2020-01-28] MEDS: dexAMETHasone 2 MG TAB PO SCH (08:21)
[2020-01-28] MEDS: ZINC SULFATE 220 MG CAP PO SCH (08:21)
[2020-01-28] MEDS: ASCORBIC ACID 500 MG TAB PO SCH (08:21)
[2020-01-28] MEDS ORDERED: FUROSEMIDE 40 MG TAB PO SCH (09:00)
[2020-01-28] MEDS: ALBUTEROL HFA INHALER INHALATION PRN (11:34)
[2020-01-28 11:43] LABS: Glucose,Whole Blood 467 mg/dL (75-99)
[2020-01-28] MEDS ORDERED: FUROSEMIDE 10 MG/ML 4 ML VIAL IV STA (12:25)
[2020-01-28] MEDS: INSULIN ASPART (NovoLOG) 100 UNIT/ML VIAL SQ SCH ×3 (12:32→20:52)
--- NOTE | 2020-01-28 12:34 | P.HPIM ---
History of Present Illness H&P Date: 01/28/20 Chief Complaint: Shortness of breath , dyspnea,covid-19+ 89-year-old male patient of Dr. Apple, was admitted via the emergency room was brought in the hospital by EMS with shortness of breath cough or phlegm production. This patient was diagnosed rossi virus positive on January 21. Has been experiencing productive cough with yellow tinged phlegm more than a teaspoon, states that his pulse ox was in the 60s in the morning of the admission complaint of increased fatigue and intermittent fevers. Ongoing history of chronic obstructive pulmonary disease Review of Systems Constitutional: Reports as per HPI, Reports fatigue, Reports fever Ears, nose, mouth and throat: Reports as per HPI Cardiovascular: Reports high blood pressure, Reports irregular heart beat Respiratory: Reports cough, Reports cough with sputum, Reports excessive sputum (covid 19 +) Gastrointestinal: Reports as per HPI Genitourinary: Reports as per HPI Musculoskeletal: Reports as per HPI Integumentary: Reports as per HPI Neurological: Reports as per HPI, Reports memory loss Psychiatric: Reports as per HPI Endocrine: Reports as per HPI, Reports high blood sugars (Probably secondary to steroids) Past Medical History Past Medical History: Atrial Fibrillation, Cancer, COPD, Diabetes Mellitus, GERD/Reflux, Hypertension, Osteoarthritis (OA), Prostate Disorder, Skin Disorder Additional Past Medical History / Comment(s): Colon polyps, endocarditis, spinal stenosis, prostate cancer - had radiation & seed implants, edema jr legs, skin CA scalp, chronic anemia - receives iron transfusions, lump left axilla History of Any Multi-Drug Resistant Organisms: None Reported Past Surgical History: Adenoidectomy, Appendectomy, Cholecystectomy, Coronary Bypass/CABG, Heart Catheterization, Hernia Repair, Pacemaker, Tonsillectomy Additional Past Surgical History / Comment(s): triple bypass ([place] 2001), left hydrocele repair (child), cataracts, colonoscopies Past Anesthesia/Blood Transfusion Reactions: No Reported Reaction Type of Cardiac Device: Permanent Pacemaker Device Placement Date:: [facility]2016 Past Psychological History: No Psychological Hx Reported Smoking Status: Former smoker Past Alcohol Use History: Occasional Additional Past Alcohol Use History / Comment(s): quit smoking 1992, started smoking age 16 smoked 1ppd Past Drug Use History: None Reported - Past Family History Mother Additional Family Medical History / Comment(s): heart problems Father Family Medical History: Cancer Additional Family Medical History / Comment(s): colon CA Son(s) Family Medical History: Cancer Brother(s) Family Medical History: Cancer Medications and Allergies Home Medications Medication Instructions Recorded Confirmed Type Digoxin [Digitek] 250 mcg PO QAM 06/07/14 01/27/20 History Tamsulosin [Flomax] 0.4 mg PO BID 06/07/14 01/27/20 History atenoloL [Tenormin] 50 mg PO QAM 06/07/14 01/27/20 History Furosemide [Lasix] 40 mg PO QAM 09/29/16 01/27/20 History Ipratropium/Albuterol Sulfate 1 puff INHALATION RT-QID PRN 09/29/16 01/27/20 History [Combivent Respimat Inhaler] amLODIPine [Norvasc] 5 mg PO DAILY 09/29/16 01/27/20 History Multivitamin [Men's Multi-Vitamin] 1 tab PO DAILY 07/29/17 01/27/20 History Potassium Chloride [Klor-Con 20] 20 meq PO HS 01/27/20 01/27/20 History Allergies Allergy/AdvReac Type Severity Reaction Status Date / Time Penicillins Allergy Rash/Hives Verified 01/27/20 13:05 tetanus immune globulin AdvReac extreme Verified 01/27/20 13:05 swelling entire arm Physical Exam Osteopathic Statement: *. No significant issues noted on an osteopathic structural exam other than those noted in the History and Physical/Consult. Vitals: Vital Signs Temp Pulse Pulse Resp BP BP Pulse Ox 01/28/20 09:53 97.5 F L 60 19 165/53 90 L 01/28/20 08:00 60 19 01/28/20 05:57 97.7 F 60 163/61 95 01/28/20 02:28 97.7 F 60 144/62 97 01/27/20 20:56 97.8 F 60 170/62 96 01/27/20 20:19 97.9 F 60 20 135/68 94 L 01/27/20 19:55 94 L 01/27/20 14:00 97 F L 61 18 168/69 95 Intake and Output 01/27/20 01/28/20 01/28/20 22:59 06:59 14:59 Output Total 300 Balance -300 Output: Urine 300 Other: Voiding Method Toilet Toilet Urinal Urinal # Voids 1 Weight 83.915 kg Physical examGeneral: [Patient awake, alert and oriented times 3. Patient in no acute distress Productive cough HEENT: [PERRL. EOMI. No pharyngeal erythema or exudate.] Neck: [No adenopathy.] Cardiac: [Heart regular in rate and rhythm. No S3. No S4. No clicks, rubs. No murmur.] Lungs: Diminished breath sounds bilaterally, bibasilar crackles Abdomen: [No mass. No organomegaly. Bowel sounds presnt and normoactive in all 4 quadrants.] Extremes: 2+ edema bilaterally no cyanosis no claudication normal pulses] : Normal male genitalia Musculoskeletal: [No joint erythema,2+ edema bilaterally Skin: [No rash.] Neurologic: [No lateralizing deficits. CN II - XII grossly intact.] Lymphatic: [No adenopathy.] Results CBC & Chem 7: 01/27/20 09:00 01/27/20 09:00 Labs: Abnormal Lab Results - Last 24 Hours (Table) 01/27/20 01/27/20 01/28/20 Range/Units 09:00 09:00 07:22 POC Glucose (mg/dL) 483 H (75-99) mg/dL Ferritin 1229.5 H (22.0-322.0) ng/mL Procalcitonin 0.15 H (0.02-0.09) ng/mL 01/28/20 Range/Units 11:41 POC Glucose (mg/dL) 467 H (75-99) mg/dL Ferritin (22.0-322.0) ng/mL Procalcitonin (0.02-0.09) ng/mL Microbiology - Last 24 Hours (Table) 01/27/20 09:00 Blood Culture - Preliminary Blood No Growth after 24 hours Thrombosis Risk Factor Assmnt - DVT/VTE Prophylaxis DVT/VTE Prophylaxis: Pharmacologic Prophylaxis ordered - Choose All That Apply Any of the Below Risk Factors Present?: No Other Risk Factors: Yes Each Risk Factor Represents 3 Points: Age 75 years or older Other congenital or acquired thrombophilia - If yes, enter type in comment: No Thrombosis Risk Factor Assessment Total Risk Factor Score: 3 Thrombosis Risk Factor Assessment Level: Moderate Risk Assessment and Plan (1) Chronic obstructive pulmonary disease Current Visit: Yes Status: Acute Code(s): J44.9 - CHRONIC OBSTRUCTIVE PULMONARY DISEASE, UNSPECIFIED SNOMED Code(s): 30833583 (2) Atrial fibrillation with controlled ventricular rate Current Visit: Yes Status: Acute Code(s): I48.91 - UNSPECIFIED ATRIAL FIBRILLATION SNOMED Code(s): 51204658 (3) COVID-19 Current Visit: Yes Status: Acute Code(s): U07.1 - COVID-19 SNOMED Code(s): 184102553 (4) Failure of outpatient treatment Current Visit: Yes Status: Acute Code(s): Z78.9 - OTHER SPECIFIED HEALTH STATUS SNOMED Code(s): 312060527 (5) Hypoxemia Current Visit: Yes Status: Acute Code(s): R09.02 - HYPOXEMIA SNOMED Code(s): 830137512 (6) Pneumonia Current Visit: Yes Status: Acute Code(s): J18.9 - PNEUMONIA, UNSPECIFIED ORGANISM SNOMED Code(s): 639395344 Plan: covid 19 poss, failed outpatient therapy Bilateral pneumonia Atrial fibrillation by history rate well-controlled anticoagulated Hypertension well controlled IV steroids Pulmonary consultation Hyperglycemia secondary to IV steroids and insulin therapy Time with Patient: Greater than 30
--- NOTE | 2020-01-28 16:07 | P.CNPUL ---
History of Present Illness Consult date: 01/28/20 Requesting physician: Ricardo Wu Jr Reason for consult: dyspnea Chief complaint: Shortness of breath cough congestion History of present illness: This is a very pleasant 89-year-old gentleman follows with Dr. Apple as his primary care provider. 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 He does have a history of COPD and chronic bronchitis with some mild asthma and follows with Dr. Espinoza in our office for the same. He had been seen there recently on 01/16/2020 with complaints of increasing shortness of breath cough and congestion. He denied any fever at that time. He was afebrile in the office. He was treated with Zithromax and prednisone taper. He felt better for a few days and then continue to have ongoing symptoms. He was tested positive for the coronavirus on 01/22/2020. He presented here to the emergency room yesterday with complaints of increasing shortness of breath cough and congestion. Chest x-ray revealed extensive airspace disease throughout the right lung and patchy changes in the left. Computed tomography scan of the chest revealed extensive diffuse groundglass throughout the right lung and a patchy groundglass infiltrate throughout the periphery of the left lung. White count 6.1. Hemoglobin 10.9. Platelets 158. Lymphocytes 0.2. D-dimer 2.72. Sodium 132. Creatinine 0.96. Ferritin 1229. LDH 1034. C-reactive protein 47.8. Pro- calcitonin 0.15. ProBNP 1690. Influenza screen negative. He is seen today in consultation on the regular medical floor. He is currently awake and alert. He is maintaining O2 saturations in the low 90s on 6 L high flow nasal cannula. He is currently afebrile. Outside the window for Remdesivir. Review of Systems REVIEW OF SYSTEMS: CONSTITUTIONAL: Denies any recent significant weight loss or weight gain. EYES: Denies change in vision. EARS, NOSE, MOUTH, THROAT: Denies headaches, denies sore throat. CARDIOVASCULAR: Denies chest pain, palpitations or syncopal episodes. RESPIRATORY: Positive for shortness of breath, cough, congestion no hemoptysis. GASTROINTESTINAL: Denies change in appetite, denies abdominal pain GENITOURINARY: Denies hematuria, denies infections. MUSKULOSKELETAL: Denies pain, denies swelling. INTEGUMENTARY: Denies rash, denies eczema. NEUROLOGICAL: Denies recent memory loss, no recent seizure activity. PSYCHIATRIC: Denies anxiety, denies depression. HEMATOLOGIC/LYMPHATIC: Denies anemia, denies enlarged lymph nodes. Past Medical History Past Medical History: Atrial Fibrillation, Cancer, COPD, Diabetes Mellitus, GERD/Reflux, Hypertension, Osteoarthritis (OA), Prostate Disorder, Skin Disorder Additional Past Medical History / Comment(s): Colon polyps, endocarditis, spinal stenosis, prostate cancer - had radiation & seed implants, edema jr legs, skin CA scalp, chronic anemia - receives iron transfusions, lump left axilla History of Any Multi-Drug Resistant Organisms: None Reported Past Surgical History: Adenoidectomy, Appendectomy, Cholecystectomy, Coronary Bypass/CABG, Heart Catheterization, Hernia Repair, Pacemaker, Tonsillectomy Additional Past Surgical History / Comment(s): triple bypass (2001), left hydrocele repair (child), cataracts, colonoscopies Past Anesthesia/Blood Transfusion Reactions: No Reported Reaction Type of Cardiac Device: Permanent Pacemaker Device Placement Date:: [facility] 2016 Past Psychological History: No Psychological Hx Reported Smoking Status: Former smoker Past Alcohol Use History: Occasional Additional Past Alcohol Use History / Comment(s): quit smoking 1992, started smoking age 16 smoked 1ppd Past Drug Use History: None Reported - Past Family History Mother Additional Family Medical History / Comment(s): heart problems Father Family Medical History: Cancer Additional Family Medical History / Comment(s): colon CA Son(s) Family Medical History: Cancer Brother(s) Family Medical History: Cancer Medications and Allergies Home Medications Medication Instructions Recorded Confirmed Type Digoxin [Digitek] 250 mcg PO QAM 06/07/14 01/27/20 History Tamsulosin [Flomax] 0.4 mg PO BID 06/07/14 01/27/20 History atenoloL [Tenormin] 50 mg PO QAM 06/07/14 01/27/20 History Furosemide [Lasix] 40 mg PO QAM 09/29/16 01/27/20 History Ipratropium/Albuterol Sulfate 1 puff INHALATION RT-QID PRN 09/29/16 01/27/20 His tory [Combivent Respimat Inhaler] amLODIPine [Norvasc] 5 mg PO DAILY 09/29/16 01/27/20 History Multivitamin [Men's Multi-Vitamin] 1 tab PO DAILY 07/29/17 01/27/20 History Potassium Chloride [Klor-Con 20] 20 meq PO HS 01/27/20 01/27/20 History Allergies Allergy/AdvReac Type Severity Reaction Status Date / Time Penicillins Allergy Rash/Hives Verified 01/27/20 13:05 tetanus immune globulin AdvReac extreme Verified 01/27/20 13:05 swelling entire arm Physical Exam Vitals: Vital Signs Temp Pulse Pulse Resp BP BP Pulse Ox 01/28/20 14:00 97.8 F 60 19 121/66 91 L 01/28/20 09:53 97.5 F L 60 19 165/53 90 L 01/28/20 08:00 60 19 01/28/20 05:57 97.7 F 60 163/61 95 01/28/20 02:28 97.7 F 60 144/62 97 01/27/20 20:56 97.8 F 60 170/62 96 01/27/20 20:19 97.9 F 60 20 135/68 94 L 01/27/20 19:55 94 L Intake and Output 01/28/20 01/28/20 01/28/20 06:59 14:59 22:59 Other: Voiding Method Toilet Urinal # Voids 1 GENERAL EXAM: Alert, pleasant 89-year-old gentleman, on 6 L nasal cannula, comfortable in no apparent distress. HEAD: Normocephalic. EYES: Normal reaction of pupils, equal size. NOSE: Clear with pink turbinates. THROAT: No erythema or exudates. NECK: No masses, no JVD. CHEST: No chest wall deformity. LUNGS: Equal air entry with bilateral scattered rhonchi more so on the right lung CVS: S1 and S2 normal with no audible murmur, regular rhythm. ABDOMEN: No hepatosplenomegaly, normal bowel sounds, no guarding or rigidity. SPINE: No scoliosis or deformity SKIN: No rashes CENTRAL NERVOUS SYSTEM: No focal deficits, tone is normal in all 4 extremities. EXTREMITIES: There is no peripheral edema. No clubbing, no cyanosis. Peripheral pulses are intact. Results - Laboratory Findings CBC and BMP: 01/27/20 09:00 01/27/20 09:00 PT/INR, D-dimer PT 11.0 sec (9.0-12.0) 01/27/20 09:00 INR 1.1 (<1.2) 01/27/20 09:00 D-Dimer 2.72 mg/L FEU (<0.60) H 01/27/20 09:00 Abnormal lab findings: Abnormal Labs 01/27/20 01/27/20 01/27/20 09:00 09:00 09:00 RBC 3.81 L Hgb 10.9 L Hct 32.7 L Lymphocytes # 0.2 L D-Dimer 2.72 H Sodium 132 L Chloride 96 L BUN 37 H Glucose 259 H POC Glucose (mg/dL) Ferritin 1229.5 H Lactate Dehydrogenase 1034 H Creatine Kinase 34 L C-Reactive Protein 47.8 H Albumin 3.4 L Procalcitonin 01/27/20 01/28/20 01/28/20 09:00 07:22 11:41 RBC Hgb Hct Lymphocytes # D-Dimer Sodium Chloride BUN Glucose POC Glucose (mg/dL) 483 H 467 H Ferritin Lactate Dehydrogenase Creatine Kinase C-Reactive Protein Albumin Procalcitonin 0.15 H - Diagnostic Findings Chest x-ray: image reviewed CT scan - chest: image reviewed Assessment and Plan Assessment: 1 Acute hypoxic respiratory failure secondary to CoVID 19 pneumonitis. Outside the window for Remdesivir 2 Elevated inflammatory markers secondary to above 3 Diabetes mellitus 4 Coronary artery disease with previous coronary artery bypass grafting 5 History of congestive heart failure 6 Chronic obstructive pulmonary disease 7 Former smoker 8 History of B-cell lymphoma 9 History of prostate cancer 10 Atrial fibrillation status post permanent pacemaker implantation, not on anticoagulation in the outpatient setting Plan: The patient was seen and evaluated by Dr. Espinoza Chest x-ray, CAT scans and labs reviewed Continue dexamethasone Add Lovenox 80 mg twice daily Add vitamin C, vitamin D, Pepcid, melatonin, zinc Titrate the FiO2 as needed to maintain O2 saturations greater than 90% Continue to follow and make further recommendations based on his clinical status I, the cosigning physician, performed a history & physical examination of the patient. Lungs sounds lateral scattered rhonchi right greater than left. Maintaining good O2 saturations in the 90s on 6 L/m per nasal cannula. I discussed the assessment and plan of care with my nurse practitioner, Patience Lim. I attest to the above consultation as dictated by her. Time with Patient: Greater than 30
[2020-01-28 16:59] LABS: Glucose,Whole Blood 378 mg/dL (75-99)
[2020-01-28] MEDS: ALBUTEROL HFA INHALER INHALATION SCH (19:59)
[2020-01-28 20:12] LABS: Glucose,Whole Blood 436 mg/dL (75-99)
[2020-01-28] MEDS: ENOXAPARIN 80 MG/0.8 ML SYRINGE SQ SCH ×2 (20:51→20:59)
[2020-01-28] MEDS: POTASSIUM CHLORIDE ER 20 MEQ TAB.ER PO SCH (20:51)
[2020-01-28] MEDS ORDERED: INSULIN DETEMIR (LEVEMIR) 100 UNIT/ML SYR SQ SCH (21:00)
[2020-01-28 23:22] LABS: Hemoglobin A1C 8.1 % (4.0-6.0)
[2020-01-29 07:34] LABS: Glucose,Whole Blood 288 mg/dL (75-99)
[2020-01-29] MEDS: MULTIVITAMINS, THERA 1 EACH TAB PO SCH (07:40)
[2020-01-29] MEDS: ZINC SULFATE 220 MG CAP PO SCH (07:40)
[2020-01-29] MEDS: INSULIN ASPART (NovoLOG) 100 UNIT/ML VIAL SQ SCH ×4 (07:40→21:13)
[2020-01-29] MEDS: ENOXAPARIN 80 MG/0.8 ML SYRINGE SQ SCH ×2 (07:40→07:46)
[2020-01-29] MEDS: dexAMETHasone 2 MG TAB PO SCH (07:40)
[2020-01-29] MEDS: CHOLECALCIFEROL 1,000 UNIT TAB PO SCH (07:41)
[2020-01-29] MEDS: TAMSULOSIN 0.4 MG CAP.ER.24H PO SCH ×2 (07:41→21:14)
[2020-01-29] MEDS: DIGOXIN 250 MCG TAB PO SCH (07:41)
[2020-01-29] MEDS: amLODIPine 5 MG TAB PO SCH (07:41)
[2020-01-29] MEDS: atenoloL 50 MG TAB PO SCH (07:41)
[2020-01-29] MEDS: ASCORBIC ACID 500 MG TAB PO SCH (07:43)
[2020-01-29 09:27] LABS: C Reactive Protein 1.9 mg/dL (0.0-0.8)
[2020-01-29] MEDS: ALBUTEROL HFA INHALER INHALATION SCH ×4 (09:28→20:56)
--- NOTE | 2020-01-29 10:36 | XR ---
EXAMINATION TYPE: XR chest 1V portable DATE OF EXAM: 01/29/2020 COMPARISON: 01/27/2020 HISTORY: Shortness of breath TECHNIQUE: Single frontal view of the chest is obtained. FINDINGS: Patchy left lower lobe and diffuse right-sided infiltrate noted. Heart is enlarged with ca rdiac device, postsurgical change. No pneumothorax. Small right pleural effusion. Arthropathy of the shoulders. IMPRESSION: 1. Diffuse right-sided and left lower lobe areas of stable infiltrate correlate for multifocal pneumo brittany otherwise consider CHF.
[2020-01-29 11:12] LABS: Glucose,Whole Blood 348 mg/dL (75-99)
--- NOTE | 2020-01-29 11:22 | P.PN ---
Subjective Progress Note Date: 01/29/20 89-year-old male patient with COVID 19 pneumonia. The patient also has multiple medical problems and comorbidities. The patient has a history of B-cell lymphoma, chronic atrial fibrillation, diabetes mellitus, hypertension and acid reflux and the patient has history of prostate cancer with radiation seeds implanted. The patient is known to have coronary artery disease and previous bypass surgery and has appeared imminent pacemaker in place. The patient came in with worsening shortness of breath. Inflammatory markers were elevated including ferritin, LDH and C-reactive protein. The pro calcitonin level was 0.15. Influenza screen was negative. The patient was checked positive for coronary via this. The patient is currently on treatment. Chest x-ray shows improvement although there is still some increased infiltration of the right lung. He is still on 6 L of oxygen by nasal cannula. He has developed increased swelling lower extremities bilaterally. Objective - Vital Signs Vital signs: Vital Signs Temp 97.5 F L 01/29/20 09:58 Pulse 61 01/29/20 09:58 Resp 22 01/29/20 09:58 BP 150/85 01/29/20 09:58 Pulse Ox 90 L 01/29/20 09:58 Intake & Output 01/28/20 01/29/20 01/29/20 18:59 06:59 18:59 Intake Total 540 640 Output Total 800 375 Balance -260 265 Intake: Intake, IV Titration 640 Amount Sodium Chloride 0.9% 1, 640 000 ml @ 80 mls/hr IV . [id number] [facility] Rx#:[id number] Oral 540 Output: Urine 800 375 Other: Voiding Method Toilet Toilet Urinal Urinal # Voids 4 4 # Bowel Movements 1 - Exam GENERAL EXAM: Alert, pleasant 89-year-old gentleman, on 6 L nasal cannula, comfortable in no apparent distress. HEAD: Normocephalic. EYES: Normal reaction of pupils, equal size. NOSE: Clear with pink turbinates. THROAT: No erythema or exudates. NECK: No masses, no JVD. CHEST: No chest wall deformity. LUNGS: Equal air entry with bilateral scattered rhonchi more so on the right lung CVS: S1 and S2 normal with no audible murmur, regular rhythm. ABDOMEN: No hepatosplenomegaly, normal bowel sounds, no guarding or rigidity. SPINE: No scoliosis or deformity SKIN: No rashes CENTRAL NERVOUS SYSTEM: No focal deficits, tone is normal in all 4 extremities. EXTREMITIES: There is significant peripheral edema. No clubbing, no cyanosis. Peripheral pulses are intact. Results - Labs CBC & Chem 7: 01/27/20 09:00 01/27/20 09:00 Labs: Abnormal Lab Results - Last 24 Hours (Table) 01/27/20 01/28/20 01/28/20 Range/Units 09:00 11:41 16:58 D-Dimer (<0.60) mg/L FEU POC Glucose (mg/dL) 467 H 378 H (75-99) mg/dL Hemoglobin A1c 8.1 H (4.0-6.0) % Lactate Dehydrogenase (120-246) U/L C-Reactive Protein (0.0-0.8) mg/dL 01/28/20 01/29/20 01/29/20 Range/Units 20:10 06:55 06:55 D-Dimer 14.02 H (<0.60) mg/L FEU POC Glucose (mg/dL) 436 H (75-99) mg/dL Hemoglobin A1c (4.0-6.0) % Lactate Dehydrogenase 400 H (120-246) U/L C-Reactive Protein 1.9 H (0.0-0.8) mg/dL 01/29/20 01/29/20 Range/Units 07:24 11:05 D-Dimer (<0.60) mg/L FEU POC Glucose (mg/dL) 288 H 348 H (75-99) mg/dL Hemoglobin A1c (4.0-6.0) % Lactate Dehydrogenase (120-246) U/L C-Reactive Protein (0.0-0.8) mg/dL Microbiology - Last 24 Hours (Table) 01/27/20 09:00 Blood Culture - Preliminary Blood No Growth after 24 hours Assessment and Plan Plan: 1 Acute hypoxic respiratory failure secondary to CoVID 19 pneumonitis. Outside the window for Remdesivir, currently on Lovenox and Decadron.the d-dimer is quite elevated at 14. 2 Elevated inflammatory markers secondary to above 3 Diabetes mellitus 4 Coronary artery disease with previous coronary artery bypass grafting 5 History of congestive heart failure, echocardiogram showed a preserved LV function, consider diastolic heart failure 6 Chronic obstructive pulmonary disease 7 Former smoker 8 History of B-cell lymphoma 9 History of prostate cancer 10 Atrial fibrillation status post permanent pacemaker implantation, not on anticoagulation in the outpatient setting 11 increased lower extremity edema Plan: Continue dexamethasone continue Lovenox and drop the dose to half a dose of 40 mg subcu every 12 hours. Add vitamin C, vitamin D, Pepcid, melatonin, zinc add Lasix 40 mg IV daily Titrate the FiO2 as needed to maintain O2 saturations greater than 90% Continue to follow and make further recommendations based on his clinical status
[2020-01-29] MEDS: ENOXAPARIN 40 MG/0.4 ML SYRINGE SQ SCH ×2 (12:07→21:14)
[2020-01-29] MEDS: FUROSEMIDE 10 MG/ML 4 ML VIAL IV SCH (12:07)
[2020-01-29 16:21] LABS: Glucose,Whole Blood 370 mg/dL (75-99)
--- NOTE | 2020-01-29 16:41 | P.PN ---
Subjective Progress Note Date: 01/29/20 89-year-old male patient of Dr. Apple, was admitted via the emergency room was brought in the hospital by EMS with shortness of breath cough or phlegm production. This patient was diagnosed rossi virus positive on January 21. Has been experiencing productive cough with yellow tinged phlegm more than a teaspoon, states that his pulse ox was in the 60s in the morning of the admission complaint of increased fatigue and intermittent fevers. Ongoing history of chronic obstructive pulmonary disease. 01/29/2020 maintained on Covid regimen, except for Remdesivir-outside the window. Afebrile. Maintaining O2 sats of 90s on 6 L nasal cannula. Chest x- ray reporting diffuse right sided and left lower lobe areas of stable infiltrate, correlate for multifocal pneumonia, possible CHF. Elevated infl ammatory markers improving with the exception a d-dimer, 14. Anticoagulated on Lovenox. Objective - Vital Signs Vital signs: Vital Signs Temp 97.6 F 01/29/20 14:00 Pulse 61 01/29/20 14:00 Resp 20 01/29/20 14:00 BP 150/69 01/29/20 14:00 Pulse Ox 94 L 01/29/20 14:00 Intake & Output 01/28/20 01/29/20 01/29/20 18:59 06:59 18:59 Intake Total 540 640 Output Total 800 375 Balance -260 265 Intake: Intake, IV Titration 640 Amount Sodium Chloride 0.9% 1, 640 000 ml @ 80 mls/hr IV . [id number] [facility] Rx#:[id number] Oral 540 Output: Urine 800 375 Other: Voiding Method Toilet Toilet Urinal Urinal # Voids 4 4 # Bowel Movements 1 - Exam PHYSICAL EXAM: VITAL SIGNS: [As above] GENERAL: Sitting up in a chair, no acute distress HEENT: Conjunctivae normal. eyes normal. NECK: No JVD. No thyroid enlargement. No LNs CARDIOVASCULAR: S1, S2 regular.No murmur RESPIRATION: Breath sounds diminished in the bases. Scattered coarse rhonchi ABDOMEN: Soft, nontender . No guarding. no masses palpable. Positive Bowel sounds heard. LEGS: Positive edema, no clubbing, no cyanosis,positive DP pulses. PSYCHIATRY: Alert and oriented X3, mood and affect normal. NERVOUS SYSTEM: Cranial N 2-12 grossly normal. No focal deficits. Strength and sensation grossly intact.. Skin: Warm and dry, no rash - Labs CBC & Chem 7: 01/27/20 09:00 01/27/20 09:00 Labs: Abnormal Lab Results - Last 24 Hours (Table) 01/27/20 01/28/20 01/28/20 Range/Units 09:00 16:58 20:10 D-Dimer (<0.60) mg/L FEU POC Glucose (mg/dL) 378 H 436 H (75-99) mg/dL Hemoglobin A1c 8.1 H (4.0-6.0) % Lactate Dehydrogenase (120-246) U/L C-Reactive Protein (0.0-0.8) mg/dL 01/29/20 01/29/20 01/29/20 Range/Units 06:55 06:55 07:24 D-Dimer 14.02 H (<0.60) mg/L FEU POC Glucose (mg/dL) 288 H (75-99) mg/dL Hemoglobin A1c (4.0-6.0) % Lactate Dehydrogenase 400 H (120-246) U/L C-Reactive Protein 1.9 H (0.0-0.8) mg/dL 01/29/20 01/29/20 Range/Units 11:05 16:20 D-Dimer (<0.60) mg/L FEU POC Glucose (mg/dL) 348 H 370 H (75-99) mg/dL Hemoglobin A1c (4.0-6.0) % Lactate Dehydrogenase (120-246) U/L C-Reactive Protein (0.0-0.8) mg/dL Microbiology - Last 24 Hours (Table) 01/27/20 09:00 Blood Culture - Preliminary Blood No Growth after 48 hours Assessment and Plan Assessment: (1) acute Covid 19 Pneumonitis (2) acute hypoxic respiratory failure secondary to the above (3)Chronic obstructive pulmonary disease Current Visit: Yes Status: Acute Code(s): J44.9 - CHRONIC OBSTRUCTIVE PULMO NARY DISEASE, UNSPECIFIED SNOMED Code(s): 25832532 (4) diabetes mellitus, hyperglycemia, hemoglobin A1c 8.1 (5) permanent pacemaker implantation not on anticoagulation outpatient (6) chronic diastolic CHF (7) CAD, history of CABG) (8) history of B-cell lymphoma (9) Atrial fibrillation with controlled ventricular rate Current Visit: Yes Status: Acute Code(s): I48.91 - UNSPECIFIED ATRIAL FIBRILLATION SNOMED Code(s): 18607470 Plan: Continue on current medication regime ,monitoring and symptomatic treatment. Maintain COVID regimen, Lasix. Patient outside the window for Remdesivir per pulmonary. Anticoagulated on Lovenox. Levemir dose increased, close monitoring of Accu-Cheks. Prognosis guarded given multiple complex medical issues. The impression and plan of care has been dictated as directed. : I performed a history and examination of this patient, discussed the same with the dictator. I agree with the dictator's note ,documented as a scribe. Any additional findings or plans will be noted.
[2020-01-29] MEDS ORDERED: INSULIN DETEMIR (LEVEMIR) 100 UNIT/ML SYR SQ SCH (17:00)
[2020-01-29] MEDS: SODIUM CHLORIDE 0.9% 1,000 ML IV SCH (17:06)
[2020-01-29] MEDS: INSULIN DETEMIR (LEVEMIR) 100 UNIT/ML SYR SQ SCH (17:07)
[2020-01-29 20:24] LABS: Glucose,Whole Blood 385 mg/dL (75-99)
[2020-01-29] MEDS: POTASSIUM CHLORIDE ER 20 MEQ TAB.ER PO SCH (21:14)
[2020-01-30] MEDS: SODIUM CHLORIDE 0.9% 1,000 ML IV SCH ×2 (05:27→16:14)
[2020-01-30 07:04] LABS: Basophils % (A) 0 %; Eosinophils % (A) 0 %; HGB 10.7 gm/dL (13.0-17.5); Hypochromasia Slight; Lymphocytes # (A) 0.2 k/uL (1.0-4.8); Lymphocytes % (A) 2 %; MCH 28.8 pg (25.0-35.0); MCHC 32.4 g/dL (31.0-37.0); MCV 88.8 fL (80.0-100.0); Mean Platelet Volume 8.1; Monocytes # (A) 0.4 k/uL (0-1.0); Monocytes % (A) 3 %; Neutrophils # (A) 10.6 k/uL (1.3-7.7); Neutrophils % (A) 94 %; Platelet Count 180 k/uL (150-450); RBC 3.72 m/uL (4.30-5.90); RDW 15.9 % (11.5-15.5); WBC 11.2 k/uL (3.8-10.6)
[2020-01-30 07:19] LABS: Glucose,Whole Blood 176 mg/dL (75-99)
[2020-01-30] MEDS: INSULIN ASPART (NovoLOG) 100 UNIT/ML VIAL SQ SCH ×4 (07:38→21:02)
[2020-01-30] MEDS: DIGOXIN 250 MCG TAB PO SCH (07:39)
[2020-01-30] MEDS: FUROSEMIDE 10 MG/ML 4 ML VIAL IV SCH (07:39)
[2020-01-30] MEDS: TAMSULOSIN 0.4 MG CAP.ER.24H PO SCH ×2 (07:40→21:03)
[2020-01-30] MEDS: ASCORBIC ACID 500 MG TAB PO SCH (07:40)
[2020-01-30] MEDS: amLODIPine 5 MG TAB PO SCH (07:40)
[2020-01-30] MEDS: dexAMETHasone 2 MG TAB PO SCH (07:40)
[2020-01-30] MEDS: ENOXAPARIN 40 MG/0.4 ML SYRINGE SQ SCH ×2 (07:40→21:02)
[2020-01-30] MEDS: atenoloL 50 MG TAB PO SCH (07:41)
[2020-01-30] MEDS: ZINC SULFATE 220 MG CAP PO SCH (07:41)
[2020-01-30] MEDS: CHOLECALCIFEROL 1,000 UNIT TAB PO SCH (07:41)
[2020-01-30] MEDS: MULTIVITAMINS, THERA 1 EACH TAB PO SCH (07:41)
[2020-01-30 09:32] LABS: African American GFR (CKD) 78.1 (60.0-200.0); Anion Gap 9.7 mmol/L (4.00-12.00); Calcium 9.3 mg/dL (8.7-10.3); Carbon Dioxide 29.3 mmol/L (21.6-31.8); Non-African American GFR(CKD) 67.4 (60.0-200.0); Potassium 4.9 mmol/L (3.5-5.5)
[2020-01-30] MEDS: ALBUTEROL HFA INHALER INHALATION SCH ×4 (09:44→20:30)
--- NOTE | 2020-01-30 11:20 | P.PN ---
Subjective Progress Note Date: 01/30/20 89-year-old male patient with COVID 19 pneumonia. The patient also has multiple medical problems and comorbidities. The patient has a history of B-cell lymphoma, chronic atrial fibrillation, diabetes mellitus, hypertension and acid reflux and the patient has history of prostate cancer with radiation seeds implanted. The patient is known to have coronary artery disease and previous bypass surgery and has appeared imminent pacemaker in place. The patient came in with worsening shortness of breath. Inflammatory markers were elevated including ferritin, LDH and C-reactive protein. The pro calcitonin level was 0.15. Influenza screen was negative. The patient was checked positive for COVID . on 01/30/2020 and seeing the patient regarding his normal. The patient has no specific complaints. He continues to be on 6 L of oxygen by nasal cannula. We'll attempt to titrate his FiO2. Is producing brown sputum and would like to culture the sputum. He does have some swelling in lower extremiti es bilaterally.He remains on Decadron 6 mg and he is also taking Lasix 40 mg IV every 24 hours and this was started yesterday. Objective - Vital Signs Vital signs: Vital Signs Temp 97.8 F 01/30/20 10:00 Pulse 60 01/30/20 10:00 Resp 16 01/30/20 10:00 BP 145/64 01/30/20 10:00 Pulse Ox 90 L 01/30/20 10:00 Intake & Output 01/29/20 01/30/20 01/30/20 18:59 06:59 18:59 Intake Total 200 Balance 200 Intake: Oral 200 Other: Voiding Method Toilet Urinal # Voids 3 4 - Exam GENERAL EXAM: Alert, pleasant 89-year-old gentleman, on 6 L nasal cannula, comfortable in no apparent distress. HEAD: Normocephalic. EYES: Normal reaction of pupils, equal size. NOSE: Clear with pink turbinates. THROAT: No erythema or exudates. NECK: No masses, no JVD. CHEST: No chest wall deformity. LUNGS: Equal air entry with bilateral scattered rhonchi more so on the right lung CVS: S1 and S2 normal with no audible murmur, regular rhythm. ABDOMEN: No hepatosplenomegaly, normal bowel sounds, no guarding or rigidity. SPINE: No scoliosis or deformity SKIN: No rashes CENTRAL NERVOUS SYSTEM: No focal deficits, tone is normal in all 4 extremities. EXTREMITIES: There is significant peripheral edema. No clubbing, no cyanosis. Peripheral pulses are intact. Results - Labs CBC & Chem 7: 01/30/20 06:36 01/30/20 06:36 Labs: Abnormal Lab Results - Last 24 Hours (Table) 01/29/20 01/29/20 01/30/20 Range/Units 16:20 20:17 06:36 WBC 11.2 H (3.8-10.6) k/uL RBC 3.72 L (4.30-5.90) m/uL Hgb 10.7 L (13.0-17.5) gm/dL Hct 33.0 L (39.0-53.0) % RDW 15.9 H (11.5-15.5) % Neutrophils # 10.6 H (1.3-7.7) k/uL Lymphocytes # 0.2 L (1.0-4.8) k/uL BUN (9.0-27.0) mg/dL BUN/Creatinine Ratio (12.00-20.00) Ratio Glucose (70-110) mg/dL POC Glucose (mg/dL) 370 H 385 H (75-99) mg/dL 01/30/20 01/30/20 Range/Units 06:36 07:17 WBC (3.8-10.6) k/uL RBC (4.30-5.90) m/uL Hgb (13.0-17.5) gm/dL Hct (39.0-53.0) % RDW (11.5-15.5) % Neutrophils # (1.3-7.7) k/uL Lymphocytes # (1.0-4.8) k/uL BUN 36.0 H (9.0-27.0) mg/dL BUN/Creatinine Ratio 36.00 H (12.00-20.00) Ratio Glucose 175 H (70-110) mg/dL POC Glucose (mg/dL) 176 H (75-99) mg/dL Microbiology - Last 24 Hours (Table) 01/27/20 09:00 Blood Culture - Preliminary Blood No Growth after 48 hours Assessment and Plan Plan: 1 Acute hypoxic respiratory failure secondary to CoVID 19 pneumonitis. Outside the window for Remdesivir, currently on Lovenox and Decadron.the d-dimer is quite elevated at 14. 2 Elevated inflammatory markers secondary to above 3 Diabetes mellitus 4 Coronary artery disease with previous coronary artery bypass grafting 5 History of congestive heart failure, echocardiogram showed a preserved LV function, consider diastolic heart failure 6 Chronic obstructive pulmonary disease 7 Former smoker 8 History of B-cell lymphoma 9 History of prostate cancer 10 Atrial fibrillation status post permanent pacemaker implantation, not on anticoagulation in the outpatient setting 11 increased lower extremity edema, currently on Lasix Plan: Continue dexamethasone continue Lovenox 40 mg subcu every 12 hours. Add vitamin C, vitamin D, Pepcid, melatonin, zinc Continue Lasix 40 mg IV daily Titrate the FiO2 as needed to maintain O2 saturations greater than 90% limited improvement compared to yesterday Sputum Gram stain and culture Continue to follow and make further recommendations based on his clinical status
[2020-01-30 11:56] LABS: Glucose,Whole Blood 140 mg/dL (75-99)
--- NOTE | 2020-01-30 12:07 | P.PN ---
Subjective Progress Note Date: 01/30/20 89-year-old male patient of Dr. Apple, was admitted via the emergency room was brought in the hospital by EMS with shortness of breath cough or phlegm production. This patient was diagnosed rossi virus positive on January 21. Has been experiencing productive cough with yellow tinged phlegm more than a teaspoon, states that his pulse ox was in the 60s in the morning of the admission complaint of increased fatigue and intermittent fevers. Ongoing history of chronic obstructive pulmonary disease. 01/29/2020 maintained on Covid regimen, except for Remdesivir-outside the window. Afebrile. Maintaining O2 sats of 90s on 6 L nasal cannula. Chest x- ray reporting diffuse right sided and left lower lobe areas of stable infiltrate, correlate for multifocal pneumonia, possible CHF. Elevated infl ammatory markers improving with the exception a d-dimer, 14. Anticoagulated on Lovenox. 01/30/2020 maintained on 6 L nasal cannula with O2 sats in the 90s. Reports productive cough with brown sputum. IV push Lasix initiated yesterday for lower extremity edema, appears to be diuresing well with 24-hour I&O inaccurate. Renal function remained stable. Levemir insulin dose increased yesterday with blood sugars better controlled today. Objective - Vital Signs Vital signs: Vital Signs Temp 97.8 F 01/30/20 10:00 Pulse 60 01/30/20 10:00 Resp 16 01/30/20 10:00 BP 145/64 01/30/20 10:00 Pulse Ox 90 L 01/30/20 10:00 Intake & Output 01/29/20 01/30/20 01/30/20 18:59 06:59 18:59 Intake Total 200 Balance 200 Intake: Oral 200 Other: Voiding Method Toilet Urinal # Voids 3 4 - Exam PHYSICAL EXAM: VITAL SIGNS: [As above] GENERAL: Sitting up in a chair, no acute distress HEENT: Conjunctivae normal. eyes normal. Oral mucosa moist NECK: No JVD. No thyroid enlargement. No LNs CARDIOVASCULAR: S1, S2 regular.No murmur RESPIRATION: Breath sounds diminished in the bases. Scattered coarse rhonchi more so on the right ABDOMEN: Soft, nontender . No guarding. no masses palpable. Positive Bowel sounds heard. LEGS: Positive edema, no clubbing, no cyanosis,positive DP pulses. PSYCHIATRY: Alert and oriented X3, mood and affect normal. NERVOUS SYSTEM: Cranial N 2-12 grossly normal. No focal deficits. Strength and sensation grossly intact.. Skin: Warm and dry, no rash - Labs CBC & Chem 7: 01/30/20 06:36 01/30/20 06:36 Labs: Abnormal Lab Results - Last 24 Hours (Table) 01/29/20 01/29/20 01/30/20 Range/Units 16:20 20:17 06:36 WBC 11.2 H (3.8-10.6) k/uL RBC 3.72 L (4.30-5.90) m/uL Hgb 10.7 L (13.0-17.5) gm/dL Hct 33.0 L (39.0-53.0) % RDW 15.9 H (11.5-15.5) % Neutrophils # 10.6 H (1.3-7.7) k/uL Lymphocytes # 0.2 L (1.0-4.8) k/uL BUN (9.0-27.0) mg/dL BUN/Creatinine Ratio (12.00-20.00) Ratio Glucose (70-110) mg/dL POC Glucose (mg/dL) 370 H 385 H (75-99) mg/dL 01/30/20 01/30/20 Range/Units 06:36 07:17 WBC (3.8-10.6) k/uL RBC (4.30-5.90) m/uL Hgb (13.0-17.5) gm/dL Hct (39.0-53.0) % RDW (11.5-15.5) % Neutrophils # (1.3-7.7) k/uL Lymphocytes # (1.0-4.8) k/uL BUN 36.0 H (9.0-27.0) mg/dL BUN/Creatinine Ratio 36.00 H (12.00-20.00) Ratio Glucose 175 H (70-110) mg/dL POC Glucose (mg/dL) 176 H (75-99) mg/dL Microbiology - Last 24 Hours (Table) 01/27/20 09:00 Blood Culture - Preliminary Blood No Growth after 72 hours Assessment and Plan Assessment: (1) acute Covid 19 Pneumonitis (2) acute hypoxic respiratory failure secondary to the above (3)Chronic obstructive pulmonary disease Current Visit: Yes Status: Acute Code(s): J44.9 - CHRONIC OBSTRUCTIVE PULMONARY DISEASE, UNSPECIFIED SNOMED Code(s): 91837868 (4) diabetes mellitus, hyperglycemia, hemoglobin A1c 8.1 (5) permanent pacemaker implantation not on anticoagulation outpatient (6) chronic diastolic CHF (7) CAD, history of CABG) (8) history of B-cell lymphoma (9) Atrial fibrillation with controlled ventricular rate Current Visit: Yes Status: Acute Code(s): I48.91 - UNSPECIFIED ATRIAL FIBRILLATION SNOMED Code(s): 37845856 Plan: Continue on current medication regime ,monitoring and symptomatic treat ment. Continue on COVID regimen/outside the window for Remdesivir as per pulmonary. Anticoagulated on Lovenox. Close monitoring of Accu-Cheks. Diuretics. Prognosis guarded given multiple complex medical issues. The impression and plan of care has been dictated as directed. : I performed a history and examination of this patient, discussed the same with the dictator. I agree with the dictator's note ,documented as a scribe. Any additional findings or plans will be noted.
[2020-01-30 16:59] LABS: Glucose,Whole Blood 351 mg/dL (75-99)
[2020-01-30 20:36] LABS: Glucose,Whole Blood 384 mg/dL (75-99)
[2020-01-30] MEDS: POTASSIUM CHLORIDE ER 20 MEQ TAB.ER PO SCH (21:03)
[2020-01-30] MEDS: INSULIN DETEMIR (LEVEMIR) 100 UNIT/ML SYR SQ SCH (21:03)
[2020-01-31] MEDS: SODIUM CHLORIDE 0.9% 1,000 ML IV SCH ×2 (05:22→17:23)
[2020-01-31 07:07] LABS: Glucose,Whole Blood 148 mg/dL (75-99)
[2020-01-31] MEDS: ENOXAPARIN 40 MG/0.4 ML SYRINGE SQ SCH ×2 (08:11→21:31)
[2020-01-31] MEDS: INSULIN ASPART (NovoLOG) 100 UNIT/ML VIAL SQ SCH ×4 (08:11→22:13)
[2020-01-31] MEDS: amLODIPine 5 MG TAB PO SCH (08:12)
[2020-01-31] MEDS: dexAMETHasone 2 MG TAB PO SCH (08:12)
[2020-01-31] MEDS: FUROSEMIDE 10 MG/ML 4 ML VIAL IV SCH (08:12)
[2020-01-31] MEDS: TAMSULOSIN 0.4 MG CAP.ER.24H PO SCH ×2 (08:13→21:31)
[2020-01-31] MEDS: DIGOXIN 250 MCG TAB PO SCH (08:13)
[2020-01-31] MEDS: atenoloL 50 MG TAB PO SCH (08:13)
[2020-01-31] MEDS: ASCORBIC ACID 500 MG TAB PO SCH (08:13)
[2020-01-31] MEDS: MULTIVITAMINS, THERA 1 EACH TAB PO SCH (08:13)
[2020-01-31] MEDS: ZINC SULFATE 220 MG CAP PO SCH (08:13)
[2020-01-31] MEDS: CHOLECALCIFEROL 1,000 UNIT TAB PO SCH (08:13)
[2020-01-31] MEDS: ALBUTEROL HFA INHALER INHALATION SCH ×4 (09:45→20:42)
--- NOTE | 2020-01-31 10:27 | P.PN ---
Subjective Progress Note Date: 01/31/20 89-year-old male patient with COVID 19 pneumonia. The patient also has multiple medical problems and comorbidities. The patient has a history of B-cell lymphoma, chronic atrial fibrillation, diabetes mellitus, hypertension and acid reflux and the patient has history of prostate cancer with radiation seeds implanted. The patient is known to have coronary artery disease and previous bypass surgery and has appeared imminent pacemaker in place. The patient came in with worsening shortness of breath. Inflammatory markers were elevated including ferritin, LDH and C-reactive protein. The pro calcitonin level was 0.15. Influenza screen was negative. The patient was checked positive for COVID . on 01/30/2020 and seeing the patient regarding his normal. The patient has no specific complaints. He continues to be on 6 L of oxygen by nasal cannula. We'll attempt to titrate his FiO2. Is producing brown sputum and would like to culture the sputum. He does have some swelling in lower extremiti es bilaterally.He remains on Decadron 6 mg and he is also taking Lasix 40 mg IV every 24 hours and this was started yesterday. Today's evaluation of 01/31/2020, the patient is a bit more short of breath in his usual. He is currently on 8 L of oxygen by nasal cannula. Earlier than that he was on 6 L. His lower extremity edema is improving. He remains on Decadron. He remains on IV Lasix. No fever. No chills. He did cough out some minimal amount of blood is mucous. No altered mentation. He is able to sit up on a chair. He is tolerating his diet. No nausea. No vomiting. No altered m entation. Objective - Vital Signs Vital signs: Vital Signs Temp 97.8 F 01/31/20 06:12 Pulse 64 01/31/20 06:12 Resp 16 01/31/20 06:12 BP 143/72 01/31/20 06:12 Pulse Ox 95 01/31/20 06:12 Intake & Output 01/30/20 01/31/20 01/31/20 18:59 06:59 18:59 Intake Total 200 Balance 200 Weight 84.3 kg Intake: Intake, IV Titration 200 Amount Sodium Chloride 0.9% 1, 200 000 ml @ 80 mls/hr IV . [id number] [facility] Rx#:[id number] Other: Voiding Method Toilet Toilet Urinal Urinal - Exam GENERAL EXAM: Alert, pleasant 89-year-old gentleman, on 8 L nasal cannula, comfortable in no apparent distress. HEAD: Normocephalic. EYES: Normal reaction of pupils, equal size. NOSE: Clear with pink turbinates. THROAT: No erythema or exudates. NECK: No masses, no JVD. CHEST: No chest wall deformity. LUNGS: Equal air entry with bilateral scattered rhonchi more so on the right lung CVS: S1 and S2 normal with no audible murmur, regular rhythm. ABDOMEN: No hepatosplenomegaly, normal bowel sounds, no guarding or rigidity. SPINE: No scoliosis or deformity SKIN: No rashes CENTRAL NERVOUS SYSTEM: No focal deficits, tone is normal in all 4 extremities. EXTREMITIES: There is significant peripheral edema. No clubbing, no cyanosis. Peripheral pulses are intact. - Labs CBC & Chem 7: 01/30/20 06:36 01/30/20 06:36 Labs: Abnormal Lab Results - Last 24 Hours (Table) 01/30/20 01/30/20 01/30/20 Range/Units 11:54 16:57 20:34 POC Glucose (mg/dL) 140 H 351 H 384 H (75-99) mg/dL 01/31/20 Range/Units 07:05 POC Glucose (mg/dL) 148 H (75-99) mg/dL Microbiology - Last 24 Hours (Table) 01/30/20 14:34 Gram Stain - Preliminary Sputum Sputum Culture - Preliminary 01/27/20 09:00 Blood Culture - Preliminary Blood No Growth after 72 hours Assessment and Plan Plan: 1 Acute hypoxic respiratory failure secondary to CoVID 19 pneumonitis. Outside the window for Remdesivir, currently on Lovenox and Decadron.the d-dimer is quite elevated at 14. She is currently on 8 L of oxygen by nasal cannula. Repeat chest x-ray will be done today. Decadron will be continued. 2 Elevated inflammatory markers secondary to above 3 Diabetes mellitus 4 Coronary artery disease with previous coronary artery bypass grafting 5 History of congestive heart failure, echocardiogram showed a preserved LV function, consider diastolic heart failure 6 Chronic obstructive pulmonary disease 7 Former smoker 8 History of B-cell lymphoma 9 History of prostate cancer 10 Atrial fibrillation status post permanent pacemaker implantation, not on an ticoagulation in the outpatient setting 11 increased lower extremity edema, currently on Lasix, improving Plan: Continue dexamethasone continue Lovenox 40 mg subcu every 12 hr Add vitamin C, vitamin D, Pepcid, melatonin, zinc Continue Lasix 40 mg IV daily Titrate the FiO2 as needed to maintain O2 saturations greater than 90% limited improvement compared to yesterday Sputum Gram stain and culture sent and the results are still pending for now Repeat chest x-ray today Continue to follow and make further recommendations based on his clinical status
--- NOTE | 2020-01-31 11:12 | XR ---
EXAMINATION TYPE: XR chest 1V portable DATE OF EXAM: 01/31/2020 COMPARISON: 01/29/2020 HISTORY: Shortness of breath TECHNIQUE: Single frontal view of the chest is obtained. FINDINGS: Diffuse right-sided infiltrate with patchy left lower lobe infiltrate. Suggestion of an ep icardial lead with cardiac device and postoperative change. Heart enlarged. Hyperinflation suggests C OPD. Arthropathy of the shoulders. There is a right-sided pleural effusion. IMPRESSION: 1 bilateral infiltrate greater on the right suggestive of pneumonia stable in appearance .
--- NOTE | 2020-01-31 11:14 | P.PN ---
Subjective Progress Note Date: 01/31/20 89-year-old male patient of Dr. Apple, was admitted via the emergency room was brought in the hospital by EMS with shortness of breath cough or phlegm production. This patient was diagnosed rossi virus positive on January 21. Has been experiencing productive cough with yellow tinged phlegm more than a teaspoon, states that his pulse ox was in the 60s in the morning of the admission complaint of increased fatigue and intermittent fevers. Ongoing history of chronic obstructive pulmonary disease. 01/29/2020 maintained on Covid regimen, except for Remdesivir-outside the window. Afebrile. Maintaining O2 sats of 90s on 6 L nasal cannula. Chest x- ray reporting diffuse right sided and left lower lobe areas of stable infiltrate, correlate for multifocal pneumonia, possible CHF. Elevated infl ammatory markers improving with the exception a d-dimer, 14. Anticoagulated on Lovenox. 01/30/2020 maintained on 6 L nasal cannula with O2 sats in the 90s. Reports productive cough with brown sputum. IV push Lasix initiated yesterday for lower extremity edema, appears to be diuresing well with 24-hour I&O inaccurate. Renal function remained stable. Levemir insulin dose increased yesterday with blood sugars better controlled today. 01/31/2020 worsening shortness of breath, now requiring 8 L nasal cannula to maintain O2 sats of 90. Diuresing well on Lasix IV push with bilateral lower ex tremity edema improving. Labs pending. Afebrile. Sputum culture pending. Preliminary blood cultures reporting no growth at 72 hours. No nausea vomiting or diarrhea. No abdominal pain. Denies chest pain or palpitations. Objective - Vital Signs Vital signs: Vital Signs Temp 97.7 F 01/31/20 10:01 Pulse 60 01/31/20 10:01 Resp 17 01/31/20 10:01 BP 152/65 01/31/20 10:01 Pulse Ox 90 L 01/31/20 10:01 Intake & Output 01/30/20 01/31/20 01/31/20 18:59 06:59 18:59 Intake Total 200 Balance 200 Weight 84.3 kg Intake: Intake, IV Titration 200 Amount Sodium Chloride 0.9% 1, 200 000 ml @ 80 mls/hr IV . [id number] [facility] Rx#:[id number] Other: Voiding Method Toilet Toilet Urinal Urinal - Exam PHYSICAL EXAM: VITAL SIGNS: [As above] GENERAL: Sitting up in a chair, no acute distress HEENT: Conjunctivae normal. eyes normal. Oral mucosa moist NECK: No JVD. No thyroid enlargement. No LNs CARDIOVASCULAR: S1, S2 regular.No murmur RESPIRATION: Breath sounds diminished in the bases. Scattered coarse rhonchi. ABDOMEN: Soft, nontender . No guarding. no masses palpable. Positive Bowel sounds heard. LEGS: Positive edema, no clubbing, no cyanosis,positive DP pulses. PSYCHIATRY: Alert and oriented X3, mood and affect normal. NERVOUS SYSTEM: Cranial N 2-12 grossly normal. No focal deficits. Strength and sensation grossly intact.. Skin: Warm and dry, no rash - Labs CBC & Chem 7: 01/30/20 06:36 01/30/20 06:36 Labs: Abnormal Lab Results - Last 24 Hours (Table) 01/30/20 01/30/20 01/30/20 Range/Units 11:54 16:57 20:34 POC Glucose (mg/dL) 140 H 351 H 384 H (75-99) mg/dL 01/31/20 Range/Units 07:05 POC Glucose (mg/dL) 148 H (75-99) mg/dL Microbiology - Last 24 Hours (Table) 01/30/20 14:34 Gram Stain - Preliminary Sputum Sputum Culture - Preliminary 01/27/20 09:00 Blood Culture - Preliminary Blood No Growth after 72 hours Assessment and Plan Assessment: (1) acute Covid 19 Pneumonitis (2) acute hypoxic respiratory failure secondary to the above (3)Chronic obstructive pulmonary disease Current Visit: Yes Status: Acute Code(s): J44.9 - CHRONIC OBSTRUCTIVE PULMONARY DISEASE, UNSPECIFIED SNOMED Code(s): 82394755 (4) diabetes mellitus, hyperglycemia, hemoglobin A1c 8.1 (5) permanent pacemaker implantation not on anticoagulation outpatient (6) chronic diastolic CHF (7) CAD, history of CABG) (8) history of B-cell lymphoma (9) Atrial fibrillation with controlled ventricular rate Current Visit: Yes Status: Acute Code(s): I48.91 - UNSPECIFIED ATRIAL FIBRILLATION SNOMED Code(s): 98000764 Plan: Continue on current medication regime ,monitoring and symptomatic treat ment. F/U Chest x-ray pending .Maintain COVID regimen,anticoagulation with Lovenox. Continue close monitoring of Accu-Cheks. Prognosis guarded given multiple complex medical issues. The impression and plan of care has been dictated as directed. : I performed a history and examination of this patient, discussed the same with the dictator. I agree with the dictator's note ,documented as a scribe. Any additional findings or plans will be noted.
[2020-01-31 11:40] LABS: Glucose,Whole Blood 308 mg/dL (75-99)
[2020-01-31 12:19] LABS: HCT 31.3 % (39.0-53.0); HGB 9.8 gm/dL (13.0-17.5); Hypochromasia Slight; MCHC 31.2 g/dL (31.0-37.0); MCV 89.8 fL (80.0-100.0); Mean Platelet Volume 8.1; Platelet Count 161 k/uL (150-450); RBC 3.49 m/uL (4.30-5.90); RDW 15.8 % (11.5-15.5); WBC 7.8 k/uL (3.8-10.6)
[2020-01-31 17:03] LABS: Glucose,Whole Blood 318 mg/dL (75-99)
[2020-01-31 20:44] LABS: Glucose,Whole Blood 421 mg/dL (75-99)
[2020-01-31] MEDS ORDERED: INSULIN ASPART (NovoLOG) 100 UNIT/ML VIAL SQ ONE (21:15)
[2020-01-31] MEDS: POTASSIUM CHLORIDE ER 20 MEQ TAB.ER PO SCH (21:31)
[2020-01-31] MEDS: INSULIN DETEMIR (LEVEMIR) 100 UNIT/ML SYR SQ SCH (21:31)
[2020-01-31 22:03] LABS: African American GFR (CKD) 69.6 (60.0-200.0); Anion Gap 7.8 mmol/L (4.00-12.00); BUN/Creat Ratio 36.36 Ratio (12.00-20.00); Calcium 8.7 mg/dL (8.7-10.3); Carbon Dioxide 29.2 mmol/L (21.6-31.8); Potassium 5.5 mmol/L (3.5-5.5)
[2020-02-01 07:10] LABS: Glucose,Whole Blood 187 mg/dL (75-99)
[2020-02-01] MEDS: FUROSEMIDE 10 MG/ML 4 ML VIAL IV SCH (08:14)
[2020-02-01] MEDS: ENOXAPARIN 40 MG/0.4 ML SYRINGE SQ SCH ×2 (08:14→21:40)
[2020-02-01] MEDS: atenoloL 50 MG TAB PO SCH (08:15)
[2020-02-01] MEDS: MULTIVITAMINS, THERA 1 EACH TAB PO SCH (08:15)
[2020-02-01] MEDS: ASCORBIC ACID 500 MG TAB PO SCH (08:15)
[2020-02-01] MEDS: DIGOXIN 250 MCG TAB PO SCH (08:15)
[2020-02-01] MEDS: amLODIPine 5 MG TAB PO SCH (08:15)
[2020-02-01] MEDS: TAMSULOSIN 0.4 MG CAP.ER.24H PO SCH ×2 (08:15→21:41)
[2020-02-01] MEDS: CHOLECALCIFEROL 1,000 UNIT TAB PO SCH (08:15)
[2020-02-01] MEDS: dexAMETHasone 2 MG TAB PO SCH (08:15)
[2020-02-01] MEDS: ZINC SULFATE 220 MG CAP PO SCH (08:15)
[2020-02-01] MEDS: INSULIN ASPART (NovoLOG) 100 UNIT/ML VIAL SQ SCH ×4 (08:20→21:41)
[2020-02-01] MEDS: ALBUTEROL HFA INHALER INHALATION SCH ×4 (08:24→20:15)
[2020-02-01] MEDS: SODIUM CHLORIDE 0.9% 1,000 ML IV SCH ×2 (08:42→17:35)
--- NOTE | 2020-02-01 10:51 | XR ---
EXAMINATION TYPE: XR chest 1V portable DATE OF EXAM: 02/01/2020 COMPARISON: 01/31/2020 HISTORY: Cough TECHNIQUE: Single frontal view of the chest is obtained. FINDINGS: Bilateral airspace disease seen diffusely on the right with right-sided pleural effusion. Cardiac device and postoperative change with cardiomegaly. Underlying COPD and chronic interstitial l randy disease suspected. Arthropathy of the shoulders. Suggestion of a possible epicardial lead correla te clinically. IMPRESSION: Bilateral airspace disease greater on the right with pleural effusion is stable correlat e for pneumonia.
--- NOTE | 2020-02-01 11:34 | P.PN ---
Subjective Progress Note Date: 02/01/20 89-year-old male patient with COVID 19 pneumonia. The patient also has multiple medical problems and comorbidities. The patient has a history of B-cell lymphoma, chronic atrial fibrillation, diabetes mellitus, hypertension and acid reflux and the patient has history of prostate cancer with radiation seeds implanted. The patient is known to have coronary artery disease and previous bypass surgery and has appeared imminent pacemaker in place. The patient came in with worsening shortness of breath. Inflammatory markers were elevated including ferritin, LDH and C-reactive protein. The pro calcitonin level was 0.15. Influenza screen was negative. The patient was checked positive for COVID . on 01/30/2020 and seeing the patient regarding his normal. The patient has no specific complaints. He continues to be on 6 L of oxygen by nasal cannula. We'll attempt to titrate his FiO2. Is producing brown sputum and would like to culture the sputum. He does have some swelling in lower extremiti es bilaterally.He remains on Decadron 6 mg and he is also taking Lasix 40 mg IV every 24 hours and this was started yesterday. Today's evaluation of 01/31/2020, the patient is a bit more short of breath in his usual. He is currently on 8 L of oxygen by nasal cannula. Earlier than that he was on 6 L. His lower extremity edema is improving. He remains on Decadron. He remains on IV Lasix. No fever. No chills. He did cough out some minimal amount of blood is mucous. No altered mentation. He is able to sit up on a chair. He is tolerating his diet. No nausea. No vomiting. No altered m entation. 02/01/2020, the patient is on 6 L of oxygen by nasal cannula. He does have extensive crackling of the right lung compared to the left. Chest x-ray still showing significant consolidation right lung compared to the left. Nevertheless, there is no interval worsening in the chest x-ray findings. The patient remains on Bactrim. He is being IV Lasix. He is able to sit up on a chair. No nausea. No vomiting. No diarrhea. No abdominal pain. No chest pain. I would say, clinically the patient's condition same as yesterday. Objective - Vital Signs Vital signs: Vital Signs Temp 97.9 F 02/01/20 10:30 Pulse 60 02/01/20 10:30 Resp 17 02/01/20 10:30 BP 150/60 02/01/20 10:30 Pulse Ox 99 02/01/20 10:30 Intake & Output 01/31/20 02/01/20 02/01/20 18:59 06:59 18:59 Intake Total 100 Balance 100 Weight 83.5 kg Intake: Oral 100 Other: Voiding Method Toilet Toilet Urinal Urinal # Voids 8 1 - Exam GENERAL EXAM: Alert, pleasant 89-year-old gentleman, on 6 L nasal cannula, comfortable in no apparent distress. HEAD: Normocephalic. EYES: Normal reaction of pupils, equal size. NOSE: Clear with pink turbinates. THROAT: No erythema or exudates. NECK: No masses, no JVD. CHEST: No chest wall deformity. LUNGS: Equal air entry with bilateral scattered rhonchi more so on the right lung CVS: S1 and S2 normal with no audible murmur, regular rhythm. ABDOMEN: No hepatosplenomegaly, normal bowel sounds, no guarding or rigidity. SPINE: No scoliosis or deformity SKIN: No rashes CENTRAL NERVOUS SYSTEM: No focal deficits, tone is normal in all 4 extremities. EXTREMITIES: There is significant peripheral edema. No clubbing, no cyanosis. Peripheral pulses are intact. lower extremity edema is improving - Labs CBC & Chem 7: 01/31/20 11:14 01/31/20 11:14 Labs: Abnormal Lab Results - Last 24 Hours (Table) 01/31/20 01/31/20 01/31/20 Range/Units 11:14 11:14 11:36 RBC 3.49 L (4.30-5.90) m/uL Hgb 9.8 L (13.0-17.5) gm/dL Hct 31.3 L (39.0-53.0) % RDW 15.8 H (11.5-15.5) % BUN 40.0 H (9.0-27.0) mg/dL BUN/Creatinine Ratio 36.36 H (12.00-20.00) Ratio Glucose 313 H (70-110) mg/dL POC Glucose (mg/dL) 308 H (75-99) mg/dL 01/31/20 01/31/20 02/01/20 Range/Units 16:46 20:38 07:08 RBC (4.30-5.90) m/uL Hgb (13.0-17.5) gm/dL Hct (39.0-53.0) % RDW (11.5-15.5) % BUN (9.0-27.0) mg/dL BUN/Creatinine Ratio (12.00-20.00) Ratio Glucose (70-110) mg/dL POC Glucose (mg/dL) 318 H 421 H 187 H (75-99) mg/dL Microbiology - Last 24 Hours (Table) 01/30/20 14:34 Gram Stain - Final Sputum Sputum Culture - Final 01/27/20 09:00 Blood Culture - Preliminary Blood No Growth after 96 hours Assessment and Plan Plan: 1 Acute hypoxic respiratory failure secondary to CoVID 19 pneumonitis. Outside the window for Remdesivir, currently on Lovenox and Decadron.the d-dimer is quite elevated at 14. She is currently on 6 L of oxygen by nasal cannula. Repeat chest x-ray was repeated and the patient has extensive consolidation of the right lung. No major changes condition. 2 Elevated inflammatory markers secondary to above 3 Diabetes mellitus 4 Coronary artery disease with previous coronary artery bypass grafting 5 History of congestive heart failure, echocardiogram showed a preserved LV function, consider diastolic heart failure 6 Chronic obstructive pulmonary disease 7 Former smoker 8 History of B-cell lymphoma 9 History of prostate cancer 10 Atrial fibrillation status post permanent pacemaker implantation, not on anticoagulation in the outpatient setting 11 increased lower extremity edema, currently on Lasix, improving Plan: Continue dexamethasone continue Lovenox 40 mg subcu every 12 hr Add vitamin C, vitamin D, Pepcid, melatonin, zinc Continue Lasix 40 and switch her to oral Lasix 40 mg by mouth daily Titrate the FiO2 as needed to maintain O2 saturations greater than 90% limited improvement compared to yesterday Sputum Gram stain and culture sent and the results are still pending for now Repeat chest x-ray today I am a bit concerned about the possibility of bacterial infection knowing that the patient is asymmetric worse on the right. I'm going to put this patient on IV cefepime. I'm going to recheck calcitonin level. Sputum Gram stain and culture came back negative. I was switched him to oral Lasix. Repeat inflammatory markers tomorrow. We'll follow.
[2020-02-01 11:51] LABS: Glucose,Whole Blood 236 mg/dL (75-99)
[2020-02-01 13:08] VITALS: BMI 28.0
--- NOTE | 2020-02-01 15:53 | P.PN ---
Subjective Progress Note Date: 02/01/20 89-year-old male patient of Dr. Apple, was admitted via the emergency room was brought in the hospital by EMS with shortness of breath cough or phlegm production. This patient was diagnosed rossi virus positive on January 21. Has been experiencing productive cough with yellow tinged phlegm more than a teaspoon, states that his pulse ox was in the 60s in the morning of the admission complaint of increased fatigue and intermittent fevers. Ongoing history of chronic obstructive pulmonary disease. 01/29/2020 maintained on Covid regimen, except for Remdesivir-outside the window. Afebrile. Maintaining O2 sats of 90s on 6 L nasal cannula. Chest x- ray reporting diffuse right sided and left lower lobe areas of stable infiltrate, correlate for multifocal pneumonia, possible CHF. Elevated infl ammatory markers improving with the exception a d-dimer, 14. Anticoagulated on Lovenox. 01/30/2020 maintained on 6 L nasal cannula with O2 sats in the 90s. Reports productive cough with brown sputum. IV push Lasix initiated yesterday for lower extremity edema, appears to be diuresing well with 24-hour I&O inaccurate. Renal function remained stable. Levemir insulin dose increased yesterday with blood sugars better controlled today. 01/31/2020 worsening shortness of breath, now requiring 8 L nasal cannula to maintain O2 sats of 90. Diuresing well on Lasix IV push with bilateral lower ex tremity edema improving. Labs pending. Afebrile. Sputum culture pending. Preliminary blood cultures reporting no growth at 72 hours. No nausea vomiting or diarrhea. No abdominal pain. Denies chest pain or palpitations. 02/01/2020 oxygen weaned down to 6 L nasal cannula, maintaining O2 sats in the 90s. Chest x-ray stable with bilateral airspace disease with extensive right lung consolidation. IV cefepime initiated .Sitting up at side of bed, reports exertional shortness of breath. Bilateral lower extremity edema improving on Lasix. Creatinine 1.1. Afebrile. Continues on Decadron, Hyperglycemic. Objective - Vital Signs Vital signs: Vital Signs Temp 98.0 F 02/01/20 05:15 Pulse 60 02/01/20 05:15 Resp 19 02/01/20 05:15 BP 142/64 02/01/20 05:15 Pulse Ox 99 02/01/20 05:15 Intake & Output 01/31/20 02/01/20 02/01/20 18:59 06:59 18:59 Intake Total 100 Balance 100 Weight 83.5 kg Intake: Oral 100 Other: Voiding Method Toilet Toilet Urinal Urinal # Voids 8 1 - Exam PHYSICAL EXAM: VITAL SIGNS: [As above] GENERAL: Sitting up in a chair, no acute distress HEENT: Conjunctivae normal. eyes normal. Oral mucosa moist NECK: No JVD. No thyroid enlargement. No LNs CARDIOVASCULAR: S1, S2 regular.No murmur RESPIRATION: Breath sounds diminished in the bases. Scattered coarse rhonchi, greater on the right. Few bibasilar crackles ABDOMEN: Soft, nontender . No guarding. no masses palpable. Positive Bowel sounds heard. LEGS: Decreasing edema, no clubbing, no cyanosis,positive DP pulses. PSYCHIATRY: Alert and oriented X3, mood and affect normal. NERVOUS SYSTEM: Cranial N 2-12 grossly normal. No focal deficits. Strength and sensation grossly intact.. Skin: Warm and dry, no rash - Labs CBC & Chem 7: 01/31/20 11:14 01/31/20 11:14 Labs: Abnormal Lab Results - Last 24 Hours (Table) 01/31/20 01/31/20 01/31/20 Range/Units 11:14 11:14 11:36 RBC 3.49 L (4.30-5.90) m/uL Hgb 9.8 L (13.0-17.5) gm/dL Hct 31.3 L (39.0-53.0) % RDW 15.8 H (11.5-15.5) % BUN 40.0 H (9.0-27.0) mg/dL BUN/Creatinine Ratio 36.36 H (12.00-20.00) Ratio Glucose 313 H (70-110) mg/dL POC Glucose (mg/dL) 308 H (75-99) mg/dL 01/31/20 01/31/20 02/01/20 Range/Units 16:46 20:38 07:08 RBC (4.30-5.90) m/uL Hgb (13.0-17.5) gm/dL Hct (39.0-53.0) % RDW (11.5-15.5) % BUN (9.0-27.0) mg/dL BUN/Creatinine Ratio (12.00-20.00) Ratio Glucose (70-110) mg/dL POC Glucose (mg/dL) 318 H 421 H 187 H (75-99) mg/dL Microbiology - Last 24 Hours (Table) 01/30/20 14:34 Gram Stain - Final Sputum Sputum Culture - Final 01/27/20 09:00 Blood Culture - Preliminary Blood No Growth after 96 hours Assessment and Plan Assessment: (1) acute Covid 19 Pneumonitis (2) acute hypoxic respiratory failure secondary to the above (3)Chronic obstructive pulmonary disease Current Visit: Yes Status: Acute Code(s): J44.9 - CHRONIC OBSTRUCTIVE PULMONARY DISEASE, UNSPECIFIED SNOMED Code(s): 79964782 (4) diabetes mellitus, hyperglycemia, hemoglobin A1c 8.1 (5) permanent pacemaker implantation not on anticoagulation outpatient (6) chronic diastolic CHF (7) CAD, history of CABG) (8) history of B-cell lymphoma (9) Atrial fibrillation with controlled ventricular rate Current Visit: Yes Status: Acute Code(s): I48.91 - UNSPECIFIED ATRIAL FIBRILLATION SNOMED Code(s): 68505578 Plan: Continue on current medication regime ,monitoring and symptomatic treatment. Cefepime initiated .Levemir dose adjusted, close monitoring of Accu- Cheks. Maintain COVID regimen,anticoagulation with Lovenox. Repeat labs/ inflammatory markers ordered for a.m. Prognosis guarded given multiple complex medical issues. The impression and plan of care has been dictated as directed. : I performed a history and examination of this patient, discussed the same with the dictator. I agree with the dictator's note ,documented as a scribe. Any additional findings or plans will be noted.
[2020-02-01] MEDS: CEFEPIME 2 GM in SODIUM CHLORIDE 0.9% 100 ML IVPB SCH (16:11)
[2020-02-01 16:54] LABS: Glucose,Whole Blood 395 mg/dL (75-99)
[2020-02-01 20:39] LABS: Glucose,Whole Blood 390 mg/dL (75-99)
[2020-02-01] MEDS: POTASSIUM CHLORIDE ER 20 MEQ TAB.ER PO SCH (21:41)
[2020-02-01] MEDS: INSULIN DETEMIR (LEVEMIR) 100 UNIT/ML SYR SQ SCH (21:42)
[2020-02-02] MEDS: CEFEPIME 2 GM in SODIUM CHLORIDE 0.9% 100 ML IVPB SCH ×2 (05:43→15:36)
[2020-02-02 06:56] LABS: Glucose,Whole Blood 154 mg/dL (75-99)
[2020-02-02 07:37] LABS: Basophils % (A) 0 %; Eosinophils # (A) 0.2 k/uL (0-0.7); Eosinophils % (A) 2 %; Hypochromasia Slight; Lymphocytes # (A) 0.1 k/uL (1.0-4.8); Lymphocytes % (A) 2 %; MCH 28.6 pg (25.0-35.0); MCHC 32.2 g/dL (31.0-37.0); MCV 88.8 fL (80.0-100.0); Mean Platelet Volume 7.9; Monocytes # (A) 0.4 k/uL (0-1.0); Monocytes % (A) 5 %; Neutrophils % (A) 91 %; Platelet Count 174 k/uL (150-450); RBC 3.49 m/uL (4.30-5.90); RDW 15.3 % (11.5-15.5); WBC 7.7 k/uL (3.8-10.6)
[2020-02-02] MEDS: dexAMETHasone 2 MG TAB PO SCH (07:39)
[2020-02-02] MEDS: CHOLECALCIFEROL 1,000 UNIT TAB PO SCH (07:39)
[2020-02-02] MEDS: TAMSULOSIN 0.4 MG CAP.ER.24H PO SCH ×2 (07:40→21:06)
[2020-02-02] MEDS: ZINC SULFATE 220 MG CAP PO SCH (07:40)
[2020-02-02] MEDS: DIGOXIN 250 MCG TAB PO SCH (07:40)
[2020-02-02] MEDS: amLODIPine 5 MG TAB PO SCH (07:40)
[2020-02-02] MEDS: FUROSEMIDE 40 MG TAB PO SCH (07:40)
[2020-02-02] MEDS: atenoloL 50 MG TAB PO SCH (07:40)
[2020-02-02] MEDS: MULTIVITAMINS, THERA 1 EACH TAB PO SCH (07:40)
[2020-02-02] MEDS: INSULIN ASPART (NovoLOG) 100 UNIT/ML VIAL SQ SCH ×4 (07:41→21:05)
[2020-02-02] MEDS: ASCORBIC ACID 500 MG TAB PO SCH (07:41)
[2020-02-02] MEDS: SODIUM CHLORIDE 0.9% 1,000 ML IV SCH ×2 (08:09→20:23)
[2020-02-02] MEDS: ALBUTEROL HFA INHALER INHALATION SCH ×4 (08:45→19:55)
[2020-02-02] MEDS: ENOXAPARIN 40 MG/0.4 ML SYRINGE SQ SCH ×2 (08:56→21:06)
[2020-02-02 11:18] LABS: African American GFR (CKD) 88.7 (60.0-200.0); Anion Gap 4.7 mmol/L (4.00-12.00); BUN/Creat Ratio 42.22 Ratio (12.00-20.00); C Reactive Protein 1.3 mg/dL (0.0-0.8); Calcium 8.9 mg/dL (8.7-10.3); Carbon Dioxide 28.3 mmol/L (21.6-31.8); Non-African American GFR(CKD) 76.5 (60.0-200.0); Potassium 4.9 mmol/L (3.5-5.5)
[2020-02-02 11:31] LABS: Glucose,Whole Blood 199 mg/dL (75-99)
--- NOTE | 2020-02-02 13:59 | P.PN ---
Subjective Progress Note Date: 02/02/20 89-year-old male patient of Dr. Apple, was admitted via the emergency room was brought in the hospital by EMS with shortness of breath cough or phlegm production. This patient was diagnosed rossi virus positive on January 21. Has been experiencing productive cough with yellow tinged phlegm more than a teaspoon, states that his pulse ox was in the 60s in the morning of the admission complaint of increased fatigue and intermittent fevers. Ongoing history of chronic obstructive pulmonary disease. 01/29/2020 maintained on Covid regimen, except for Remdesivir-outside the window. Afebrile. Maintaining O2 sats of 90s on 6 L nasal cannula. Chest x- ray reporting diffuse right sided and left lower lobe areas of stable infiltrate, correlate for multifocal pneumonia, possible CHF. Elevated infl ammatory markers improving with the exception a d-dimer, 14. Anticoagulated on Lovenox. 01/30/2020 maintained on 6 L nasal cannula with O2 sats in the 90s. Reports productive cough with brown sputum. IV push Lasix initiated yesterday for lower extremity edema, appears to be diuresing well with 24-hour I&O inaccurate. Renal function remained stable. Levemir insulin dose increased yesterday with blood sugars better controlled today. 01/31/2020 worsening shortness of breath, now requiring 8 L nasal cannula to maintain O2 sats of 90. Diuresing well on Lasix IV push with bilateral lower ex tremity edema improving. Labs pending. Afebrile. Sputum culture pending. Preliminary blood cultures reporting no growth at 72 hours. No nausea vomiting or diarrhea. No abdominal pain. Denies chest pain or palpitations. 02/01/2020 oxygen weaned down to 6 L nasal cannula, maintaining O2 sats in the 90s. Chest x-ray stable with bilateral airspace disease with extensive right lung consolidation. IV cefepime initiated .Sitting up at side of bed, reports exertional shortness of breath. Bilateral lower extremity edema improving on Lasix. Creatinine 1.1. Afebrile. Continues on Decadron, Hyperglycemic. 02/02/20 maintaining O2 sats in the low to mid 90s on 6 L nasal cannula. Reports feeling more tired today. Levemir dose increased yesterday with blood sugars significantly improved this morning, down to the 150s. Afebrile, normal WBC. Denies chest pain, palpitations. Objective - Vital Signs Vital signs: Vital Signs Temp 97.6 F 02/02/20 09:56 Pulse 60 02/02/20 09:56 Resp 18 02/02/20 09:56 BP 152/61 02/02/20 09:56 Pulse Ox 91 L 02/02/20 09:56 Intake & Output 02/01/20 02/02/20 02/02/20 18:59 06:59 18:59 Intake Total 500 Output Total 400 Balance -400 500 Weight 83.5 kg 80.4 kg Intake: Intake, IV Titration 100 Amount Cefepime 2 gm In Sodium 100 Chloride 0.9% 100 ml @ 25 mls/hr IVPB Q12H [facility] Rx# :[id number] Oral 400 Output: Urine 400 Other: Voiding Method Toilet Toilet Toilet Urinal Urinal Urinal # Voids 1 # Bowel Movements 1 - Exam PHYSICAL EXAM: VITAL SIGNS: [As above] GENERAL: Alert and oriented 3 ,Sitting up at bedside, no acute distress, mildly fatigued HEENT: Conjunctivae normal. eyes normal. Oral mucosa moist NECK: No JVD. No thyroid enlargement. No LNs CARDIOVASCULAR: S1, S2 regular.No murmur RESPIRATION: Breath sounds are shallow, diminished in the bases. Scattered coarse rhonchi, greater on the right. ABDOMEN: Soft, nontender . No guarding. no masses palpable. Positive Bowel sounds heard. LEGS: Decreasing edema, no clubbing, no cyanosis,positive DP pulses. NERVOUS SYSTEM: Cranial N 2-12 grossly normal. No focal deficits. Strength and sensation grossly intact. Skin: Warm and dry, no rash - Labs CBC & Chem 7: 02/02/20 07:06 02/02/20 07:06 Labs: Abnormal Lab Results - Last 24 Hours (Table) 02/01/20 02/01/20 02/01/20 Range/Units 11:48 16:46 20:38 RBC (4.30-5.90) m/uL Hgb (13.0-17.5) gm/dL Hct (39.0-53.0) % Lymphocytes # (1.0-4.8) k/uL POC Glucose (mg/dL) 236 H 395 H 390 H (75-99) mg/dL 02/02/20 02/02/20 Range/Units 06:53 07:06 RBC 3.49 L (4.30-5.90) m/uL Hgb 10.0 L (13.0-17.5) gm/dL Hct 31.0 L (39.0-53.0) % Lymphocytes # 0.1 L (1.0-4.8) k/uL POC Glucose (mg/dL) 154 H (75-99) mg/dL Microbiology - Last 24 Hours (Table) 01/27/20 09:00 Blood Culture - Preliminary Blood No Growth after 120 hours 01/30/20 14:34 Gram Stain - Final Sputum Sputum Culture - Final Assessment and Plan Assessment: (1) acute Covid 19 Pneumonitis (2) acute hypoxic respiratory failure secondary to the above (3)Chronic obstructive pulmonary disease Current Visit: Yes Status: Acute Code(s): J44.9 - CHRONIC OBSTRUCTIVE PULMONARY DISEASE, UNSPECIFIED SNOMED Code(s): 79944519 (4) diabetes mellitus, hyperglycemia, hemoglobin A1c 8.1 (5) permanent pacemaker implantation not on anticoagulation outpatient (6) chronic diastolic CHF (7) CAD, history of CABG) (8) history of B-cell lymphoma (9) Atrial fibrillation with controlled ventricular rate Current Visit: Yes Status: Acute Code(s): I48.91 - UNSPECIFIED ATRIAL FIBRILLATION SNOMED Code(s): 76726368 Plan: Continue on current medication regime ,monitoring and symptomatic treatment. Maintain Cefepime, Covid regime. Anticoagulation with Lovenox. Maintain same dose of Levemir with close monitoring of Accu-Cheks. Repeat labs/ inflammatory markers ordered for a.m. Prognosis guarded given multiple complex medical issues. The impression and plan of care has been dictated as directed. : I performed a history and examination of this patient, discussed the same with the dictator. I agree with the dictator's note ,documented as a scribe. Any additional findings or plans will be noted.
[2020-02-02 16:37] LABS: Glucose,Whole Blood 302 mg/dL (75-99)
--- NOTE | 2020-02-02 19:00 | P.PN ---
Subjective Progress Note Date: 02/02/20 89-year-old male patient with COVID 19 pneumonia. The patient also has multiple medical problems and comorbidities. The patient has a history of B-cell lymphoma, chronic atrial fibrillation, diabetes mellitus, hypertension and acid reflux and the patient has history of prostate cancer with radiation seeds implanted. The patient is known to have coronary artery disease and previous bypass surgery and has appeared imminent pacemaker in place. The patient came in with worsening shortness of breath. Inflammatory markers were elevated including ferritin, LDH and C-reactive protein. The pro calcitonin level was 0.15. Influenza screen was negative. The patient was checked positive for COVID . on 01/30/2020 and seeing the patient regarding his normal. The patient has no specific complaints. He continues to be on 6 L of oxygen by nasal cannula. We'll attempt to titrate his FiO2. Is producing brown sputum and would like to culture the sputum. He does have some swelling in lower extremiti es bilaterally.He remains on Decadron 6 mg and he is also taking Lasix 40 mg IV every 24 hours and this was started yesterday. Today's evaluation of 01/31/2020, the patient is a bit more short of breath in his usual. He is currently on 8 L of oxygen by nasal cannula. Earlier than that he was on 6 L. His lower extremity edema is improving. He remains on Decadron. He remains on IV Lasix. No fever. No chills. He did cough out some minimal amount of blood is mucous. No altered mentation. He is able to sit up on a chair. He is tolerating his diet. No nausea. No vomiting. No altered m entation. 02/01/2020, the patient is on 6 L of oxygen by nasal cannula. He does have extensive crackling of the right lung compared to the left. Chest x-ray still showing significant consolidation right lung compared to the left. Nevertheless, there is no interval worsening in the chest x-ray findings. The patient remains on Bactrim. He is being IV Lasix. He is able to sit up on a chair. No nausea. No vomiting. No diarrhea. No abdominal pain. No chest pain. I would say, clinically the patient's condition same as yesterday. On 02/02/2020, the patient is being seen for a follow-up. The patient is currently being treated for coronavirus/Covid 19 related pneumonia. The patient is currently on 6 L of oxygen by nasal cannula. He does have bilateral pulmonary infiltrates and his chest x-ray and on examination is crackles in the lung bases more so on the right compared to the left. The patient feels that his condition is stable for now. He continues to have some swelling in lower extremities. He is on IV Lasix. I started him on IV cefepime yesterday due to concerns of a superinfection knowing that his pulmonary infiltrates was somewhat atypical and asymmetrical. Note that he had a low progress is on level. His regimen continues to be Decadron 6 mg by mouth daily. Is also on Lovenox 30 mg subcu for DVT prophylaxis. He is able to sit up on a chair. He is calm and comfortable. Objective - Vital Signs Vital signs: Vital Signs Temp 97.8 F 02/02/20 17:55 Pulse 54 L 02/02/20 17:55 Resp 16 02/02/20 17:55 BP 156/63 02/02/20 17:55 Pulse Ox 97 02/02/20 17:55 Intake & Output 02/01/20 02/02/20 02/02/20 18:59 06:59 18:59 Intake Total 500 100 Output Total 400 Balance -400 500 100 Weight 83.5 kg 80.4 kg Intake: Intake, IV Titration 100 100 Amount Cefepime 2 gm In Sodium 100 100 Chloride 0.9% 100 ml @ 25 mls/hr IVPB Q12H [facility] Rx# :[id number] Oral 400 Output: Urine 400 Other: Voiding Method Toilet Toilet Toilet Urinal Urinal Urinal # Voids 1 2 # Bowel Movements 1 - Exam GENERAL EXAM: Alert, pleasant 89-year-old gentleman, on 6 L nasal cannula, comfortable in no apparent distress. HEAD: Normocephalic. EYES: Normal reaction of pupils, equal size. NOSE: Clear with pink turbinates. THROAT: No erythema or exudates. NECK: No masses, no JVD. CHEST: No chest wall deformity. LUNGS: Equal air entry with bilateral scattered rhonchi more so on the right lung CVS: S1 and S2 normal with no audible murmur, regular rhythm. ABDOMEN: No hepatosplenomegaly, normal bowel sounds, no guarding or rigidity. SPINE: No scoliosis or deformity SKIN: No rashes CENTRAL NERVOUS SYSTEM: No focal deficits, tone is normal in all 4 extremities. EXTREMITIES: There is significant peripheral edema. No clubbing, no cyanosis. Peripheral pulses are intact. lower extremity edema is improving - Labs CBC & Chem 7: 02/02/20 07:06 02/02/20 07:06 Labs: Abnormal Lab Results - Last 24 Hours (Table) 02/01/20 02/02/20 02/02/20 Range/Units 20:38 06:53 07:06 RBC (4.30-5.90) m/uL Hgb (13.0-17.5) gm/dL Hct (39.0-53.0) % Lymphocytes # (1.0-4.8) k/uL Sodium 133 L (135-145) mmol/L BUN 38.0 H (9.0-27.0) mg/dL BUN/Creatinine Ratio 42.22 H (12.00-20.00) Ratio Glucose 153 H (70-110) mg/dL POC Glucose (mg/dL) 390 H 154 H (75-99) mg/dL Lactate Dehydrogenase 314 H (120-246) U/L C-Reactive Protein 1.3 H (0.0-0.8) mg/dL 02/02/20 02/02/20 02/02/20 Range/Units 07:06 11:29 16:35 RBC 3.49 L (4.30-5.90) m/uL Hgb 10.0 L (13.0-17.5) gm/dL Hct 31.0 L (39.0-53.0) % Lymphocytes # 0.1 L (1.0-4.8) k/uL Sodium (135-145) mmol/L BUN (9.0-27.0) mg/dL BUN/Creatinine Ratio (12.00-20.00) Ratio Glucose (70-110) mg/dL POC Glucose (mg/dL) 199 H 302 H (75-99) mg/dL Lactate Dehydrogenase (120-246) U/L C-Reactive Protein (0.0-0.8) mg/dL Microbiology - Last 24 Hours (Table) 01/27/20 09:00 Blood Culture - Final Blood No Growth after 144 hours Assessment and Plan Plan: 1 Acute hypoxic respiratory failure secondary to CoVID 19 pneumonitis. Outside the window for Remdesivir, currently on Lovenox and Decadron.the d-dimer is quite elevated at 14. She is currently on 6 L of oxygen by nasal cannula. Repeat chest x-ray was repeated and the patient has extensive consolidation of the right lung. No major changes condition. Based on the asymmetric pulmonary infiltration and concern of a superinfection, start the patient on IV cefepime. However, his progress over level came back low and a superimposed bacterial infection so to be less likely at this point in time. 2 Elevated inflammatory markers secondary to above, and the patient's LDH level is at 314 and CRP is at 1.3. 3 Diabetes mellitus, along with a steroid-induced hyperglycemia, currently on Levemir insulin in addition to a sliding scale coverage. He is receiving 30 units of Levemir on a daily basis. 4 Coronary artery disease with previous coronary artery bypass grafting 5 History of congestive heart failure, echocardiogram showed a preserved LV function, consider diastolic heart failure 6 Chronic obstructive pulmonary disease 7 Former smoker 8 History of B-cell lymphoma 9 History of prostate cancer 10 Atrial fibrillation status post permanent pacemaker implantation, not on anticoagulation in the outpatient setting 11 increased lower extremity edema, currently on Lasix, improving Plan: Continue dexamethasone continue Lovenox 40 mg subcu every 12 hr Continue IV cefepime for another 24 hours Add vitamin C, vitamin D, Pepcid, melatonin, zinc Lasix 40 mg by mouth daily Titrate the FiO2 as needed to maintain O2 saturations greater than 90% limited improvement compared to yesterday Sputum Gram stain and culture sent and the results are still pending for now We'll follow. The patient states that he is clinically feeling better.
[2020-02-02 20:51] LABS: Glucose,Whole Blood 285 mg/dL (75-99)
[2020-02-02] MEDS: INSULIN DETEMIR (LEVEMIR) 100 UNIT/ML SYR SQ SCH (21:05)
[2020-02-02] MEDS: POTASSIUM CHLORIDE ER 20 MEQ TAB.ER PO SCH (21:06)
[2020-02-03] MEDS: CEFEPIME 2 GM in SODIUM CHLORIDE 0.9% 100 ML IVPB SCH ×2 (04:54→16:47)
[2020-02-03 06:53] LABS: Glucose,Whole Blood 85 mg/dL (75-99)
[2020-02-03] MEDS: INSULIN ASPART (NovoLOG) 100 UNIT/ML VIAL SQ SCH ×4 (06:59→21:12)
[2020-02-03] MEDS: SODIUM CHLORIDE 0.9% 1,000 ML IV SCH ×2 (07:00→21:10)
[2020-02-03] MEDS: ALBUTEROL HFA INHALER INHALATION SCH ×4 (08:24→20:43)
[2020-02-03] MEDS: ENOXAPARIN 40 MG/0.4 ML SYRINGE SQ SCH ×2 (08:32→21:12)
[2020-02-03] MEDS: dexAMETHasone 2 MG TAB PO SCH (08:33)
[2020-02-03] MEDS: DIGOXIN 250 MCG TAB PO SCH (08:33)
[2020-02-03] MEDS: ASCORBIC ACID 500 MG TAB PO SCH (08:33)
[2020-02-03] MEDS: CHOLECALCIFEROL 1,000 UNIT TAB PO SCH (08:35)
[2020-02-03] MEDS: TAMSULOSIN 0.4 MG CAP.ER.24H PO SCH ×2 (08:35→21:12)
[2020-02-03] MEDS: FUROSEMIDE 40 MG TAB PO SCH (08:35)
[2020-02-03] MEDS: ZINC SULFATE 220 MG CAP PO SCH (08:35)
[2020-02-03] MEDS: amLODIPine 5 MG TAB PO SCH (08:35)
[2020-02-03] MEDS: atenoloL 50 MG TAB PO SCH (08:35)
[2020-02-03] MEDS: MULTIVITAMINS, THERA 1 EACH TAB PO SCH (08:35)
--- NOTE | 2020-02-03 08:42 | XR ---
EXAMINATION TYPE: XR chest 1V portable DATE OF EXAM: 02/03/2020 COMPARISON: 02/01/2020 INDICATION: Covid pneumonia TECHNIQUE: Single frontal view of the chest is obtained. FINDINGS: The heart size is normal. Sternotomy wires are in the midline. Pacemaker overlies left chest The pulmonary vasculature is normal. There is a worsening right lung consolidation. Peripheral left lower lung field infiltrate remains pr esent. IMPRESSION: 1. Mild worsening of the right lung infiltrate. Persistent left mid and lower lung field peripheral i nfiltrate. Findings can be compatible with atypical pneumonia
[2020-02-03 11:25] LABS: Glucose,Whole Blood 223 mg/dL (75-99)
--- NOTE | 2020-02-03 12:24 | P.PN ---
Subjective Progress Note Date: 02/03/20 89-year-old male patient with COVID 19 pneumonia. The patient also has multiple medical problems and comorbidities. The patient has a history of B-cell lymphoma, chronic atrial fibrillation, diabetes mellitus, hypertension and acid reflux and the patient has history of prostate cancer with radiation seeds implanted. The patient is known to have coronary artery disease and previous bypass surgery and has appeared imminent pacemaker in place. The patient came in with worsening shortness of breath. Inflammatory markers were elevated including ferritin, LDH and C-reactive protein. The pro calcitonin level was 0.15. Influenza screen was negative. The patient was checked positive for COVID . on 01/30/2020 and seeing the patient regarding his normal. The patient has no specific complaints. He continues to be on 6 L of oxygen by nasal cannula. We'll attempt to titrate his FiO2. Is producing brown sputum and would like to culture the sputum. He does have some swelling in lower extremiti es bilaterally.He remains on Decadron 6 mg and he is also taking Lasix 40 mg IV every 24 hours and this was started yesterday. Today's evaluation of 01/31/2020, the patient is a bit more short of breath in his usual. He is currently on 8 L of oxygen by nasal cannula. Earlier than that he was on 6 L. His lower extremity edema is improving. He remains on Decadron. He remains on IV Lasix. No fever. No chills. He did cough out some minimal amount of blood is mucous. No altered mentation. He is able to sit up on a chair. He is tolerating his diet. No nausea. No vomiting. No altered m entation. 02/01/2020, the patient is on 6 L of oxygen by nasal cannula. He does have extensive crackling of the right lung compared to the left. Chest x-ray still showing significant consolidation right lung compared to the left. Nevertheless, there is no interval worsening in the chest x-ray findings. The patient remains on Bactrim. He is being IV Lasix. He is able to sit up on a chair. No nausea. No vomiting. No diarrhea. No abdominal pain. No chest pain. I would say, clinically the patient's condition same as yesterday. On 02/02/2020, the patient is being seen for a follow-up. The patient is currently being treated for coronavirus/Covid 19 related pneumonia. The patient is currently on 6 L of oxygen by nasal cannula. He does have bilateral pulmonary infiltrates and his chest x-ray and on examination is crackles in the lung bases more so on the right compared to the left. The patient feels that his condition is stable for now. He continues to have some swelling in lower extremities. He is on IV Lasix. I started him on IV cefepime yesterday due to concerns of a superinfection knowing that his pulmonary infiltrates was somewhat atypical and asymmetrical. Note that he had a low progress is on level. His regimen continues to be Decadron 6 mg by mouth daily. Is also on Lovenox 30 mg subcu for DVT prophylaxis. He is able to sit up on a chair. He is calm and comfortable. Objective - Vital Signs Vital signs: Vital Signs Temp 98.0 F 02/03/20 10:00 Pulse 57 L 02/03/20 10:00 Resp 18 02/03/20 10:00 BP 150/62 02/03/20 10:00 Pulse Ox 93 L 02/03/20 10:00 Intake & Output 02/02/20 02/03/20 02/03/20 18:59 06:59 18:59 Intake Total 100 1000 Output Total 400 Balance 100 600 Weight 81 kg Intake: Intake, IV Titration 100 100 Amount Cefepime 2 gm In Sodium 100 100 Chloride 0.9% 100 ml @ 25 mls/hr IVPB Q12H [facility] Rx# :[id number] Oral 900 Output: Urine 400 Other: Voiding Method Toilet Toilet Urinal Urinal # Voids 2 2 # Bowel Movements 1 - Exam GENERAL EXAM: Alert, pleasant 89-year-old gentleman, on 6 L nasal cannula, comfortable in no apparent distress. HEAD: Normocephalic. EYES: Normal reaction of pupils, equal size. NOSE: Clear with pink turbinates. THROAT: No erythema or exudates. NECK: No masses, no JVD. CHEST: No chest wall deformity. LUNGS: Equal air entry with bilateral scattered rhonchi more so on the right lung CVS: S1 and S2 normal with no audible murmur, regular rhythm. ABDOMEN: No hepatosplenomegaly, normal bowel sounds, no guarding or rigidity. SPINE: No scoliosis or deformity SKIN: No rashes CENTRAL NERVOUS SYSTEM: No focal deficits, tone is normal in all 4 extremities. EXTREMITIES: There is significant peripheral edema. No clubbing, no cyanosis. Peripheral pulses are intact. lower extremity edema is improving - Labs CBC & Chem 7: 02/02/20 07:06 02/02/20 07:06 Labs: Abnormal Lab Results - Last 24 Hours (Table) 02/02/20 02/02/20 02/03/20 Range/Units 16:35 20:50 11:23 POC Glucose (mg/dL) 302 H 285 H 223 H (75-99) mg/dL Microbiology - Last 24 Hours (Table) 01/27/20 09:00 Blood Culture - Final Blood No Growth after 144 hours Assessment and Plan Plan: 1 Acute hypoxic respiratory failure secondary to CoVID 19 pneumonitis. Outside the window for Remdesivir, currently on Lovenox and Decadron.the d-dimer is quite elevated at 14. She is currently on 6 L of oxygen by nasal cannula. Repeat chest x-ray was repeated and the patient has extensive consolidation of the right lung. No major changes condition. Based on the asymmetric pulmonary infiltration and concern of a superinfection, start the patient on IV cefepime. Repeat chest x-ray from today shows no major interval change and there is some extensive consolidation of the right lung. His condition is stable on 6 L of oxygen by nasal cannula. 2 Elevated inflammatory markers secondary to above, and the patient's LDH level is at 314 and CRP is at 1.3. 3 Diabetes mellitus, along with a steroid-induced hyperglycemia, currently on Levemir insulin in addition to a sliding scale coverage. He is receiving 30 units of Levemir on a daily basis. 4 Coronary artery disease with previous coronary artery bypass grafting 5 History of congestive heart failure, echocardiogram showed a preserved LV function, consider diastolic heart failure 6 Chronic obstructive pulmonary disease 7 Former smoker 8 History of B-cell lymphoma 9 History of prostate cancer 10 Atrial fibrillation status post permanent pacemaker implantation, not on anti coagulation in the outpatient setting 11 increased lower extremity edema, currently on Lasix, improving Plan: Continue dexamethasone continue Lovenox 40 mg subcu every 12 hr Continue IV cefepime for another 24 hours Add vitamin C, vitamin D, Pepcid, melatonin, zinc Lasix 40 mg by mouth daily Titrate the FiO2 as needed to maintain O2 saturations greater than 90% Continue IV cefepime, the patient's sputum culture that was obtained earlier showed normal growth. We'll obtain another sputum sample.
[2020-02-03 17:07] LABS: Glucose,Whole Blood 293 mg/dL (75-99)
[2020-02-03 20:40] LABS: Glucose,Whole Blood 307 mg/dL (75-99)
[2020-02-03] MEDS: INSULIN DETEMIR (LEVEMIR) 100 UNIT/ML SYR SQ SCH (21:12)
[2020-02-03] MEDS: POTASSIUM CHLORIDE ER 20 MEQ TAB.ER PO SCH (21:12)
[2020-02-04] MEDS: CEFEPIME 2 GM in SODIUM CHLORIDE 0.9% 100 ML IVPB SCH ×2 (03:01→15:19)
[2020-02-04 07:07] LABS: Glucose,Whole Blood 82 mg/dL (75-99)
[2020-02-04] MEDS: INSULIN ASPART (NovoLOG) 100 UNIT/ML VIAL SQ SCH ×4 (07:15→20:40)
[2020-02-04] MEDS: ASCORBIC ACID 500 MG TAB PO SCH (07:58)
[2020-02-04] MEDS: ENOXAPARIN 40 MG/0.4 ML SYRINGE SQ SCH ×2 (07:58→20:40)
[2020-02-04] MEDS: DIGOXIN 250 MCG TAB PO SCH (07:58)
[2020-02-04] MEDS: dexAMETHasone 2 MG TAB PO SCH (07:58)
[2020-02-04] MEDS: ZINC SULFATE 220 MG CAP PO SCH (07:58)
[2020-02-04] MEDS: CHOLECALCIFEROL 1,000 UNIT TAB PO SCH (07:59)
[2020-02-04] MEDS: MULTIVITAMINS, THERA 1 EACH TAB PO SCH (07:59)
[2020-02-04] MEDS: amLODIPine 5 MG TAB PO SCH (07:59)
[2020-02-04] MEDS: FUROSEMIDE 40 MG TAB PO SCH (07:59)
[2020-02-04] MEDS: atenoloL 50 MG TAB PO SCH (07:59)
[2020-02-04] MEDS: TAMSULOSIN 0.4 MG CAP.ER.24H PO SCH ×2 (07:59→20:40)
[2020-02-04] MEDS: SODIUM CHLORIDE 0.9% 1,000 ML IV SCH ×2 (07:59→20:40)
[2020-02-04] MEDS: ALBUTEROL HFA INHALER INHALATION SCH ×4 (08:36→20:24)
[2020-02-04 11:59] LABS: Glucose,Whole Blood 178 mg/dL (75-99)
--- NOTE | 2020-02-04 12:09 | P.PN ---
Subjective On 02/04/2020, the patient is being seen for a follow-up. He is still on 6 L of oxygen by nasal cannula. Pulse ox 93%. His chest x-ray showed asymmetric pulmonary infiltrates worse on the right. The patient has consolidation on the right. I added cefepime. The pro- calcitonin level was low. The rest of the blood work and the electrolytes are all within normal limits. LDH was 314 from 02/02/2020. The patient remains on Lasix 40 mg by mouth daily. He remains on Lovenox 1 mg subcu every 12 hours. Objective - Vital Signs Vital signs: Vital Signs Temp 97.4 F L 02/04/20 10:00 Pulse 58 L 02/04/20 10:00 Resp 20 02/04/20 10:00 BP 137/71 02/04/20 10:00 Pulse Ox 92 L 02/04/20 10:00 Intake & Output 02/03/20 02/04/20 02/04/20 18:59 06:59 18:59 Intake Total 100 200 Balance 100 200 Weight 81.1 kg Intake: IV 100 Cefepime 2 gm In Sodium 100 Chloride 0.9% 100 ml @ 25 mls/hr IVPB Q12H [facility] Rx# :[id number] Oral 200 Other: Voiding Method Toilet Bedside Commode Urinal # Voids 2 # Bowel Movements 1 - Exam GENERAL EXAM: Alert, pleasant 89-year-old gentleman, on 6 L nasal cannula, comfortable in no apparent distress. HEAD: Normocephalic. EYES: Normal reaction of pupils, equal size. NOSE: Clear with pink turbinates. THROAT: No erythema or exudates. NECK: No masses, no JVD. CHEST: No chest wall deformity. LUNGS: Equal air entry with bilateral scattered rhonchi more so on the right lung CVS: S1 and S2 normal with no audible murmur, regular rhythm. ABDOMEN: No hepatosplenomegaly, normal bowel sounds, no guarding or rigidity. SPINE: No scoliosis or deformity SKIN: No rashes CENTRAL NERVOUS SYSTEM: No focal deficits, tone is normal in all 4 extremities. EXTREMITIES: There is significant peripheral edema. No clubbing, no cyanosis. Peripheral pulses are intact. lower extremity edema is improving - Labs CBC & Chem 7: 02/02/20 07:06 02/02/20 07:06 Labs: Abnormal Lab Results - Last 24 Hours (Table) 12/12/20 12/12/20 12/13/20 Range/Units 17:06 20:39 11:56 POC Glucose (mg/dL) 293 H 307 H 178 H (75-99) mg/dL Microbiology - Last 24 Hours (Table) 02/03/20 20:49 Sputum Culture - Preliminary Sputum Assessment and Plan Plan: 1 Acute hypoxic respiratory failure secondary to CoVID 19 pneumonitis. Outside the window for Remdesivir, currently on Lovenox and Decadron.the d-dimer is quite elevated at 14. She is currently on 6 L of oxygen by nasal cannula. Repeat chest x-ray was repeated and the patient has extensive consolidation of the right lung. No major changes condition. Based on the asymmetric pulmonary infiltration and concern of a superinfection, start the patient on IV cefepime. Nevertheless, the pro-calcitonin level was low and the addition of antibiotics did not cause any significant improvement in the patient's symptoms and the patient continues to be on 6 L of oxygen by nasal cannula. His thermostat filling the patient is not showing any signs of improvement and he still stuck at 6 L of oxygen by nasal cannula. 2 Elevated inflammatory markers secondary to above, and the patient's LDH level is at 314 and CRP is at 1.3. 3 Diabetes mellitus, along with a steroid-induced hyperglycemia, currently on Levemir insulin in addition to a sliding scale coverage. He is receiving 30 units of Levemir on a daily basis. 4 Coronary artery disease with previous coronary artery bypass grafting 5 History of congestive heart failure, echocardiogram showed a preserved LV function, consider diastolic heart failure 6 Chronic obstructive pulmonary disease 7 Former smoker 8 History of B-cell lymphoma 9 History of prostate cancer 10 Atrial fibrillation status post permanent pacemaker implantation, not on anticoagulation in the outpatient setting 11 increased lower extremity edema, currently on Lasix, improving Plan: Continue dexamethasone continue Lovenox 40 mg subcu every 12 hr Continue IV cefepime for another 24 hours Add vitamin C, vitamin D, Pepcid, melatonin, zinc Lasix 40 mg by mouth daily Titrate the FiO2 as needed to maintain O2 saturations greater than 90% Continue IV cefepime, the patient's sputum culture that was obtained earlier showed normal growth. Repeat chest x-ray in the morning We'll continue to follow
--- NOTE | 2020-02-04 14:02 | P.PN ---
Subjective 89-year-old male patient of Dr. Apple, was admitted via the emergency room was brought in the hospital by EMS with shortness of breath cough or phlegm production. This patient was diagnosed rossi virus positive on January 21. Has been experiencing productive cough with yellow tinged phlegm more than a teaspoon, states that his pulse ox was in the 60s in the morning of the admission complaint of increased fatigue and intermittent fevers. Ongoing history of chronic obstructive pulmonary disease. 01/29/2020 maintained on Covid regimen, except for Remdesivir-outside the window. Afebrile. Maintaining O2 sats of 90s on 6 L nasal cannula. Chest x- ray reporting diffuse right sided and left lower lobe areas of stable infiltrate, correlate for multifocal pneumonia, possible CHF. Elevated inflammatory markers improving with the exception a d-dimer, 14. Anticoagulated on Lovenox. 01/30/2020 maintained on 6 L nasal cannula with O2 sats in the 90s. Reports productive cough with brown sputum. IV push Lasix initiated yesterday for lower extremity edema, appears to be diuresing well with 24-hour I&O inaccurate. Renal function remained stable. Levemir insulin dose increased yesterday with blood sugars better controlled today. 01/31/2020 worsening shortness of breath, now requiring 8 L nasal cannula to maintain O2 sats of 90. Diuresing well on Lasix IV push with bilateral lower extremity edema improving. Labs pending. Afebrile. Sputum culture pending. Preliminary blood cultures reporting no growth at 72 hours. No nausea vomiting or diarrhea. No abdominal pain. Denies chest pain or palpitations. 02/01/2020 oxygen weaned down to 6 L nasal cannula, maintaining O2 sats in the 90s. Chest x-ray stable with bilateral airspace disease with extensive right lung consolidation. IV cefepime initiated .Sitting up at side of bed, reports exertional shortness of breath. Bilateral lower extremity edema improving on Lasix. Creatinine 1.1. Afebrile. Continues on Decadron, Hyperglycemic. 02/02/20 maintaining O2 sats in the low to mid 90s on 6 L nasal cannula. Reports feeling more tired today. Levemir dose increased yesterday with blood sugars significantly improved this morning, down to the 150s. Afebrile, normal WBC. Denies chest pain, palpitations. 02/03/2020: patient remains afebrile on 6l/m of O2 via NC. Cxr and pulmonology notes reviewed. Pat is c/o min SOB with exertion No chest pain, or pressures. Tolerating His diet. Objective - Vital Signs Vital signs: Vital Signs Temp 98.0 F 02/03/20 10:00 Pulse 57 L 02/03/20 10:00 Resp 18 02/03/20 10:00 BP 150/62 02/03/20 10:00 Pulse Ox 93 L 02/03/20 10:00 Intake & Output 02/02/20 02/03/20 02/03/20 18:59 06:59 18:59 Intake Total 100 1000 100 Output Total 400 Balance 100 600 100 Weight 81 kg Intake: IV 100 Cefepime 2 gm In Sodium 100 Chloride 0.9% 100 ml @ 25 mls/hr IVPB Q12H [facility] Rx# :[id number] Intake, IV Titration 100 100 Amount Cefepime 2 gm In Sodium 100 100 Chloride 0.9% 100 ml @ 25 mls/hr IVPB Q12H [facility] Rx# :[id number] Oral 900 Output: Urine 400 Other: Voiding Method Toilet Toilet Urinal Urinal # Voids 2 2 # Bowel Movements 1 - Exam GENERAL: Alert and oriented 3 ,Sitting up at bedside, no acute distress, mildly fatigued HEENT: Conjunctivae normal. eyes normal. Oral mucosa moist NECK: No JVD. No thyroid enlargement. No LNs CARDIOVASCULAR: S1, S2 regular.No murmur RESPIRATION: Breath sounds are shallow, diminished in the bases. Scattered coarse rhonchi, greater on the right. ABDOMEN: Soft, nontender . No guarding. no masses palpable. Positive Bowel sounds heard. LEGS: Decreasing edema, no clubbing, no cyanosis,positive DP pulses. NERVOUS SYSTEM: Cranial N 2-12 grossly normal. No focal deficits. Strength and sensation grossly intact. Skin: Warm and dry, no rash - Labs CBC & Chem 7: 02/02/20 07:06 02/02/20 07:06 Labs: Abnormal Lab Results - Last 24 Hours (Table) 02/02/20 02/02/20 02/03/20 Range/Units 16:35 20:50 11:23 POC Glucose (mg/dL) 302 H 285 H 223 H (75-99) mg/dL Microbiology - Last 24 Hours (Table) 01/27/20 09:00 Blood Culture - Final Blood No Growth after 144 hours - Imaging and Cardiology Chest x-ray: report reviewed (mild worsening of the right lung infiltrate. Per sistant left mid and lower lung field peripheral infiltrate.Finsings can be compatible with Atypical Pneumonia) Assessment and Plan (1) Pneumonia due to COVID-19 virus Current Visit: Yes Status: Acute Code(s): U07.1 - COVID-19; J12.89 - OTHER VIRAL PNEUMONIA SNOMED Code(s): 029315006089015773 (2) Acute respiratory failure with hypoxia Current Visit: Yes Status: Acute Code(s): J96.01 - ACUTE RESPIRATORY FAILURE WITH HYPOXIA SNOMED Code(s): 73965820 (3) Chronic diastolic (congestive) heart failure Current Visit: Yes Status: Acute Code(s): I50.32 - CHRONIC DIASTOLIC (CONGESTIVE) HEART FAILURE SNOMED Code(s): 432108925 (4) CAD (coronary artery disease) Current Visit: Yes Status: Acute Code(s): I25.10 - ATHSCL HEART DISEASE OF [place] CORONARY ARTERY W/O ANG PCTRS SNOMED Code(s): 24999245 (5) H/O four vessel coronary artery bypass graft Current Visit: Yes Status: Acute Code(s): Z95.1 - PRESENCE OF AORTOCORONARY BYPASS GRAFT SNOMED Code(s): 120150629 (6) H/O lymphoma Current Visit: Yes Status: Acute Code(s): Z85.79 - PRSNL HX OF MALIG NEOPLM OF LYMPHOID, HEMATPOETC & REL TISS SNOMED Code(s): 088276036 (7) Atrial fibrillation with controlled ventricular rate Current Visit: Yes Status: Acute Code(s): I48.91 - UNSPECIFIED ATRIAL FIBRILLATION SNOMED Code(s): 29812547 (8) COVID-19 Current Visit: Yes Status: Acute Code(s): U07.1 - COVID-19 SNOMED Code(s): 211134319 (9) Chronic obstructive pulmonary disease Current Visit: Yes Status: Acute Code(s): J44.9 - CHRONIC OBSTRUCTIVE PULMONARY DISEASE, UNSPECIFIED SNOMED Code(s): 40306172 (10) Failure of outpatient treatment Current Visit: Yes Status: Acute Code(s): Z78.9 - OTHER SPECIFIED HEALTH STATUS SNOMED Code(s): 425745907 (11) Hypoxemia Current Visit: Yes Status: Acute Code(s): R09.02 - HYPOXEMIA SNOMED Code(s): 325478591 Plan: he will continue on the Covid cocktail. continue cefepime ordered by pulmonology. I will await further recommendations from pulmonology. Will continue O2. Repeat labs in a.m., hell be reevaluate in the next 24 hours.
[2020-02-04 17:16] LABS: Glucose,Whole Blood 322 mg/dL (75-99)
[2020-02-04 20:33] LABS: Glucose,Whole Blood 357 mg/dL (75-99)
[2020-02-04] MEDS: POTASSIUM CHLORIDE ER 20 MEQ TAB.ER PO SCH (20:40)
[2020-02-04] MEDS: INSULIN DETEMIR (LEVEMIR) 100 UNIT/ML SYR SQ SCH (20:40)
[2020-02-05] MEDS: CEFEPIME 2 GM in SODIUM CHLORIDE 0.9% 100 ML IVPB SCH ×2 (04:11→16:42)
[2020-02-05 06:42] LABS: Basophils % (A) 0 %; Eosinophils # (A) 0.2 k/uL (0-0.7); Eosinophils % (A) 2 %; HCT 30.4 % (39.0-53.0); HGB 9.8 gm/dL (13.0-17.5); Lymphocytes # (A) 0.3 k/uL (1.0-4.8); Lymphocytes % (A) 3 %; MCH 28.6 pg (25.0-35.0); MCHC 32.1 g/dL (31.0-37.0); MCV 89.1 fL (80.0-100.0); Mean Platelet Volume 7.4; Monocytes # (A) 0.5 k/uL (0-1.0); Monocytes % (A) 6 %; Neutrophils # (A) 7.9 k/uL (1.3-7.7); Neutrophils % (A) 88 %; Platelet Count 225 k/uL (150-450); RBC 3.42 m/uL (4.30-5.90); RDW 14.7 % (11.5-15.5)
[2020-02-05 07:17] LABS: Glucose,Whole Blood 104 mg/dL (75-99)
[2020-02-05] MEDS: ALBUTEROL HFA INHALER INHALATION SCH ×4 (07:42→20:24)
[2020-02-05] MEDS: INSULIN ASPART (NovoLOG) 100 UNIT/ML VIAL SQ SCH ×4 (07:52→21:17)
[2020-02-05] MEDS: amLODIPine 5 MG TAB PO SCH (07:58)
[2020-02-05] MEDS: ASCORBIC ACID 500 MG TAB PO SCH (07:58)
[2020-02-05] MEDS: atenoloL 50 MG TAB PO SCH (07:59)
[2020-02-05] MEDS: dexAMETHasone 2 MG TAB PO SCH (07:59)
[2020-02-05] MEDS: CHOLECALCIFEROL 1,000 UNIT TAB PO SCH (07:59)
[2020-02-05] MEDS: ENOXAPARIN 40 MG/0.4 ML SYRINGE SQ SCH ×2 (08:00→21:16)
[2020-02-05] MEDS: MULTIVITAMINS, THERA 1 EACH TAB PO SCH (08:00)
[2020-02-05] MEDS: DIGOXIN 250 MCG TAB PO SCH (08:00)
[2020-02-05] MEDS: ZINC SULFATE 220 MG CAP PO SCH (08:03)
[2020-02-05] MEDS: TAMSULOSIN 0.4 MG CAP.ER.24H PO SCH ×2 (08:03→21:17)
[2020-02-05] MEDS: FUROSEMIDE 40 MG TAB PO SCH (08:13)
--- NOTE | 2020-02-05 09:07 | XR ---
EXAMINATION TYPE: XR chest 1V DATE OF EXAM: 02/05/2020 COMPARISON: 02/03/2020 HISTORY: Cough TECHNIQUE: Single frontal view of the chest is obtained. FINDINGS: Bilateral infiltrate greater on the right stable. Cardiomegaly and postoperative change an d cardiac device noted. Underlying COPD suspected there is arthropathy shoulders. No pneumothorax. IMPRESSION: Diffuse pulmonary disease greater on the right stable correlate for pneumonia.
[2020-02-05 09:27] LABS: African American GFR (CKD) 93.1 (60.0-200.0); Anion Gap 3.7 mmol/L (4.00-12.00); Carbon Dioxide 30.3 mmol/L (21.6-31.8); Non-African American GFR(CKD) 80.3 (60.0-200.0); Potassium 5.1 mmol/L (3.5-5.5)
[2020-02-05 11:56] LABS: Glucose,Whole Blood 233 mg/dL (75-99)
[2020-02-05] MEDS: SODIUM CHLORIDE 0.9% 1,000 ML IV SCH ×2 (12:30→21:50)
--- NOTE | 2020-02-05 16:54 | P.PN ---
Subjective Progress Note Date: 02/05/20 Principal diagnosis: Acute hypoxic respiratory failure secondary to covid19 pneumonitis Patient was reevaluated today on 01/23/20, patient remains on 4L nasal cannula, O2 saturation is 93% patient is comfortable, in no distress. Chest x-ray is quite concerning, however clinically the patient looks better and sounds better than what is expected knowing his chest x-ray findings. Patient denies any specific complaints, he tells me that he feels fine. His CBC is relatively nor mal and basic metabolic profile normal BUN is 44 creatinine 0.8 Objective - Vital Signs Vital signs: Vital Signs Temp 97.7 F 02/05/20 14:00 Pulse 60 02/05/20 14:00 Resp 24 02/05/20 16:40 BP 135/57 02/05/20 14:00 Pulse Ox 94 L 02/05/20 16:40 Intake & Output 02/04/20 02/05/20 02/05/20 18:59 06:59 18:59 Intake Total 220 200 Output Total 300 Balance 220 200 -300 Weight 80.4 kg Intake: Oral 220 200 Output: Urine 300 Other: Voiding Method Toilet Bedside Commode Urinal # Voids 2 - Exam GENERAL EXAM: Alert, pleasant 89-year-old gentleman, in no distress. HEENT: PERRLA, EOMI, no active, no neck masses, no JVD, no stridor. CHEST: No chest wall deformity. LUNGS: Fine crackles at the bases bilaterally. CVS: S1 and S2 normal with no audible murmur, regular rhythm. ABDOMEN: No hepatosplenomegaly, normal bowel sounds, no guarding or rigidity. SPINE: No scoliosis or deformity SKIN: No rashes CENTRAL NERVOUS SYSTEM: Alert and oriented 3, no gross focal deficits.. EXTREMITIES: No clubbing edema or cyanosis. Psychiatric: Normal mood affect and normal mental status examination - Labs CBC & Chem 7: 02/05/20 06:24 02/05/20 06:24 Labs: Abnormal Lab Results - Last 24 Hours (Table) 02/04/20 02/04/20 02/05/20 Range/Units 17:11 20:30 06:24 RBC 3.42 L (4.30-5.90) m/uL Hgb 9.8 L (13.0-17.5) gm/dL Hct 30.4 L (39.0-53.0) % Neutrophils # 7.9 H (1.3-7.7) k/uL Lymphocytes # 0.3 L (1.0-4.8) k/uL Sodium (135-145) mmol/L Anion Gap (4.00-12.00) mmol/L BUN (9.0-27.0) mg/dL BUN/Creatinine Ratio (12.00-20.00) Ratio Glucose (70-110) mg/dL POC Glucose (mg/dL) 322 H 357 H (75-99) mg/dL 02/05/20 02/05/20 02/05/20 Range/Units 06:24 07:10 11:50 RBC (4.30-5.90) m/uL Hgb (13.0-17.5) gm/dL Hct (39.0-53.0) % Neutrophils # (1.3-7.7) k/uL Lymphocytes # (1.0-4.8) k/uL Sodium 134 L (135-145) mmol/L Anion Gap 3.70 L (4.00-12.00) mmol/L BUN 44.0 H (9.0-27.0) mg/dL BUN/Creatinine Ratio 55.00 H (12.00-20.00) Ratio Glucose 117 H (70-110) mg/dL POC Glucose (mg/dL) 104 H 233 H (75-99) mg/dL Microbiology - Last 24 Hours (Table) 02/03/20 20:49 Gram Stain - Preliminary Sputum Sputum Culture - Preliminary Assessment and Plan Assessment: Impression: Acute hypoxic respiratory failure secondary to covid 19 pneumonia Type 2 diabetes. Coronary artery disease. Chronic obstructive pulmonary disease. History of B-cell lymphoma. Former smoker. History of prostate cancer. Chronic atrial fibrillation. Recommendation: Continue Decadron. Continue Lovenox. Continue antibiotics empirically. Continue the Covid 19 cocktail. We'll continue to follow Not quite ready for any discharge planning. Prognosis remains relatively guarded Time with Patient: Less than 30
[2020-02-05 17:21] LABS: Glucose,Whole Blood 383 mg/dL (75-99)
--- NOTE | 2020-02-05 17:25 | P.PN ---
Subjective Progress Note Date: 02/05/20 89-year-old male patient of Dr. Apple, was admitted via the emergency room was brought in the hospital by EMS with shortness of breath cough or phlegm production. This patient was diagnosed rossi virus positive on January 21. Has been experiencing productive cough with yellow tinged phlegm more than a teaspoon, states that his pulse ox was in the 60s in the morning of the admission complaint of increased fatigue and intermittent fevers. Ongoing history of chronic obstructive pulmonary disease. 01/29/2020 maintained on Covid regimen, except for Remdesivir-outside the window. Afebrile. Maintaining O2 sats of 90s on 6 L nasal cannula. Chest x- ray reporting diffuse right sided and left lower lobe areas of stable infiltrate, correlate for multifocal pneumonia, possible CHF. Elevated infl ammatory markers improving with the exception a d-dimer, 14. Anticoagulated on Lovenox. 01/30/2020 maintained on 6 L nasal cannula with O2 sats in the 90s. Reports productive cough with brown sputum. IV push Lasix initiated yesterday for lower extremity edema, appears to be diuresing well with 24-hour I&O inaccurate. Renal function remained stable. Levemir insulin dose increased yesterday with blood sugars better controlled today. 01/31/2020 worsening shortness of breath, now requiring 8 L nasal cannula to maintain O2 sats of 90. Diuresing well on Lasix IV push with bilateral lower ex tremity edema improving. Labs pending. Afebrile. Sputum culture pending. Preliminary blood cultures reporting no growth at 72 hours. No nausea vomiting or diarrhea. No abdominal pain. Denies chest pain or palpitations. 02/01/2020 oxygen weaned down to 6 L nasal cannula, maintaining O2 sats in the 90s. Chest x-ray stable with bilateral airspace disease with extensive right lung consolidation. IV cefepime initiated .Sitting up at side of bed, reports exertional shortness of breath. Bilateral lower extremity edema improving on Lasix. Creatinine 1.1. Afebrile. Continues on Decadron, Hyperglycemic. 02/02/20 maintaining O2 sats in the low to mid 90s on 6 L nasal cannula. Reports feeling more tired today. Levemir dose increased yesterday with blood sugars significantly improved this morning, down to the 150s. Afebrile, normal WBC. Denies chest pain, palpitations. 02/05/2020 feeling better. Improved aeration with oxygen requirements decreased further to 4 L nasal cannula-maintaining O2 sats in the low 90s. F/U Sputum cultures pending. Chest x-ray reporting diffuse pulmonary disease greater on the right. Afebrile, T-max 99.5, WBC 9. Currently on oral Lasix, diuresing well with bilateral lower extremity edema continuing to improve. BUN 44, creatinine 0.8. Objective - Vital Signs Vital signs: Vital Signs Temp 97.7 F 02/05/20 14:00 Pulse 60 02/05/20 14:00 Resp 24 02/05/20 16:40 BP 135/57 02/05/20 14:00 Pulse Ox 92 L 02/05/20 16:59 Intake & Output 02/04/20 02/05/20 02/05/20 18:59 06:59 18:59 Intake Total 220 200 Output Total 300 Balance 220 200 -300 Weight 80.4 kg Intake: Oral 220 200 Output: Urine 300 Other: Voiding Method Toilet Bedside Commode Urinal # Voids 2 - Exam PHYSICAL EXAM: VITAL SIGNS: [As above] GENERAL: Alert and oriented 3 ,Sitting up at in chair, no acute distress. HEENT: Conjunctivae normal. eyes normal. Oral mucosa moist NECK: No JVD. No thyroid enlargement. No LNs CARDIOVASCULAR: S1, S2 regular.No murmur RESPIRATION: Breath sounds diminished in the bases. Fine Bibasilar crackles. ABDOMEN: Soft, nontender . No guarding. no masses palpable. Positive Bowel sounds heard. LEGS: Improving edema, no clubbing, no cyanosis,positive DP pulses. NERVOUS SYSTEM: Cranial N 2-12 grossly normal. No focal deficits. Strength and sensation grossly intact. Skin: Warm and dry, no rash - Labs CBC & Chem 7: 02/05/20 06:24 02/05/20 06:24 Labs: Abnormal Lab Results - Last 24 Hours (Table) 02/04/20 02/05/20 02/05/20 Range/Units 20:30 06:24 06:24 RBC 3.42 L (4.30-5.90) m/uL Hgb 9.8 L (13.0-17.5) gm/dL Hct 30.4 L (39.0-53.0) % Neutrophils # 7.9 H (1.3-7.7) k/uL Lymphocytes # 0.3 L (1.0-4.8) k/uL Sodium 134 L (135-145) mmol/L Anion Gap 3.70 L (4.00-12.00) mmol/L BUN 44.0 H (9.0-27.0) mg/dL BUN/Creatinine Ratio 55.00 H (12.00-20.00) Ratio Glucose 117 H (70-110) mg/dL POC Glucose (mg/dL) 357 H (75-99) mg/dL 02/05/20 02/05/20 Range/Units 07:10 11:50 RBC (4.30-5.90) m/uL Hgb (13.0-17.5) gm/dL Hct (39.0-53.0) % Neutrophils # (1.3-7.7) k/uL Lymphocytes # (1.0-4.8) k/uL Sodium (135-145) mmol/L Anion Gap (4.00-12.00) mmol/L BUN (9.0-27.0) mg/dL BUN/Creatinine Ratio (12.00-20.00) Ratio Glucose (70-110) mg/dL POC Glucose (mg/dL) 104 H 233 H (75-99) mg/dL Microbiology - Last 24 Hours (Table) 02/03/20 20:49 Gram Stain - Preliminary Sputum Sputum Culture - Preliminary Assessment and Plan Assessment: (1) acute Covid 19 Pneumonitis (2) acute hypoxic respiratory failure secondary to the above (3)Chronic obstructive pulmonary disease Current Visit: Yes Status: Acute Code(s): J44.9 - CHRONIC OBSTRUCTIVE PULMONARY DISEASE, UNSPECIFIED SNOMED Code(s): 83419498 (4) diabetes mellitus, hyperglycemia, hemoglobin A1c 8.1 (5) permanent pacemaker implantation not on anticoagulation outpatient (6) chronic diastolic CHF (7) CAD, history of CABG) (8) history of B-cell lymphoma (9) Atrial fibrillation with controlled ventricular rate Current Visit: Yes Status: Acute Code(s): I48.91 - UNSPECIFIED ATRIAL FIBRILLATION SNOMED Code(s): 03140547 Plan: Continue on current medication regime ,monitoring and symptomatic treatment. Continue antibiotics, Covid regime,anticoagulation. Close monitoring of Accu-Cheks. Repeat labs in a.m. follow closely with pulmonary The impression and plan of care has been dictated as directed. : I performed a history and examination of this patient, discussed the same with the dictator. I agree with the dictator's note ,documented as a scribe. Any ad ditional findings or plans will be noted.
[2020-02-05 20:30] LABS: Glucose,Whole Blood 376 mg/dL (75-99)
[2020-02-05] MEDS: INSULIN DETEMIR (LEVEMIR) 100 UNIT/ML SYR SQ SCH (21:17)
[2020-02-05] MEDS: POTASSIUM CHLORIDE ER 20 MEQ TAB.ER PO SCH (21:18)
[2020-02-06] MEDS: CEFEPIME 2 GM in SODIUM CHLORIDE 0.9% 100 ML IVPB SCH ×2 (05:50→15:56)
[2020-02-06 07:01] LABS: Glucose,Whole Blood 170 mg/dL (75-99)
[2020-02-06 07:15] LABS: Basophils % (A) 0 %; Eosinophils # (A) 0.2 k/uL (0-0.7); Eosinophils % (A) 2 %; HCT 30.6 % (39.0-53.0); HGB 9.5 gm/dL (13.0-17.5); Lymphocytes # (A) 0.4 k/uL (1.0-4.8); Lymphocytes % (A) 4 %; MCH 27.2 pg (25.0-35.0); MCHC 30.9 g/dL (31.0-37.0); MCV 87.9 fL (80.0-100.0); Mean Platelet Volume 8.2; Monocytes # (A) 0.6 k/uL (0-1.0); Monocytes % (A) 6 %; Neutrophils # (A) 8.7 k/uL (1.3-7.7); Neutrophils % (A) 86 %; Platelet Count 250 k/uL (150-450); RBC 3.49 m/uL (4.30-5.90); WBC 10.1 k/uL (3.8-10.6)
[2020-02-06] MEDS: ENOXAPARIN 40 MG/0.4 ML SYRINGE SQ SCH ×2 (07:41→20:39)
[2020-02-06] MEDS: dexAMETHasone 2 MG TAB PO SCH (07:41)
[2020-02-06] MEDS: MULTIVITAMINS, THERA 1 EACH TAB PO SCH (07:41)
[2020-02-06] MEDS: ASCORBIC ACID 500 MG TAB PO SCH (07:41)
[2020-02-06] MEDS: ZINC SULFATE 220 MG CAP PO SCH (07:42)
[2020-02-06] MEDS: INSULIN ASPART (NovoLOG) 100 UNIT/ML VIAL SQ SCH ×4 (07:42→20:40)
[2020-02-06] MEDS: atenoloL 50 MG TAB PO SCH (07:42)
[2020-02-06] MEDS: TAMSULOSIN 0.4 MG CAP.ER.24H PO SCH ×2 (07:42→20:40)
[2020-02-06] MEDS: amLODIPine 5 MG TAB PO SCH (07:42)
[2020-02-06] MEDS: CHOLECALCIFEROL 1,000 UNIT TAB PO SCH (07:42)
[2020-02-06] MEDS: DIGOXIN 250 MCG TAB PO SCH (07:42)
[2020-02-06] MEDS: FUROSEMIDE 40 MG TAB PO SCH (07:42)
[2020-02-06] MEDS: ALBUTEROL HFA INHALER INHALATION SCH ×4 (08:18→19:37)
[2020-02-06 12:13] LABS: Glucose,Whole Blood 238 mg/dL (75-99)
[2020-02-06 13:23] LABS: African American GFR (CKD) 93.1 (60.0-200.0); Anion Gap 8.1 mmol/L (4.00-12.00); Calcium 8.9 mg/dL (8.7-10.3); Carbon Dioxide 26.9 mmol/L (21.6-31.8); Non-African American GFR(CKD) 80.3 (60.0-200.0); Potassium 5.1 mmol/L (3.5-5.5)
--- NOTE | 2020-02-06 14:15 | P.PN ---
Subjective Progress Note Date: 02/06/20 Principal diagnosis: Acute hypoxic respiratory failure secondary to COVID 19 pneumonitis Patient was reevaluated today on 01/23/20, patient remains on 4L nasal cannula, O2 saturation is 93% patient is comfortable, in no distress. Chest x-ray is quite concerning, however clinically the patient looks better and sounds better than what is expected knowing his chest x-ray findings. Patient denies any specific complaints, he tells me that he feels fine. His CBC is relatively n ormal and basic metabolic profile normal BUN is 44 creatinine 0.8. On 02/06/2020 patient seen in follow-up on general medical surgical floor, currently on room air, pulse ox 93%, vital stable, no fever or chills, denies any worsening dyspnea, today's chest x-ray has been reviewed, still showing di ffuse pulmonary disease greater on the right, stable in appearance. Denies any chest pain, denies any cough, denies any hemoptysis. He is to be breathing comfortably, she was outside the window for Remdesivir, he was treated but the oral Decadron, Lovenox. Continues on once daily dose of Lasix, continues on empiric antibiotics in the form of cefepime. His blood and sputum cultures have shown no growth, his had no fever or chills. His last pro-calcitonin was negative at 0.06, this was done on 02/02/2020. Objective - Vital Signs Vital signs: Vital Signs Temp 97.8 F 02/06/20 10:00 Pulse 60 02/06/20 10:00 Resp 18 02/06/20 10:00 BP 125/76 02/06/20 10:00 Pulse Ox 93 L 02/06/20 10:00 Intake & Output 02/05/20 02/06/20 02/06/20 18:59 06:59 18:59 Intake Total 100 Output Total 300 Balance -200 Intake: Intake, IV Titration 100 Amount Cefepime 2 gm In Sodium 100 Chloride 0.9% 100 ml @ 25 mls/hr IVPB Q12H [facility] Rx# :[id number] Output: Urine 300 Other: Voiding Method Toilet Toilet Bedside Commode Bedside Commode Urinal Urinal Diaper Diaper # Voids 2 - Exam GENERAL EXAM: Alert, very pleasant, 89-year-old white male, room air, with a pulse ox of 93%, comfortable in no apparent distress. HEAD: Normocephalic/atraumatic. EYES: Normal reaction of pupils, equal size. Conjunctiva pink, sclera white. NOSE: Clear with pink turbinates. THROAT: No erythema or exudates. NECK: No masses, no JVD, no thyroid enlargement, no adenopathy. CHEST: No chest wall deformity. Symmetrical expansion. LUNGS: Equal air entry with no crackles, wheeze, rhonchi or dullness. CVS: Regular rate and rhythm, normal S1 and S2, no gallops, no murmurs, no rubs ABDOMEN: Soft, nontender. No hepatosplenomegaly, normal bowel sounds, no guarding or rigidity. EXTREMITIES: No clubbing, no edema, no cyanosis, 2+ pulses and upper and lower extremities. MUSCULOSKELETAL: Muscle strength and tone normal. SPINE: No scoliosis or deformity SKIN: No rashes CENTRAL NERVOUS SYSTEM: Alert and oriented -3. No focal deficits, tone is normal in all 4 extremities. PSYCHIATRIC: Alert and oriented -3. Appropriate affect. Intact judgment and insight. - Labs CBC & Chem 7: 02/06/20 06:20 02/06/20 06:20 Labs: Abnormal Lab Results - Last 24 Hours (Table) 02/05/20 02/05/20 02/06/20 Range/Units 17:11 20:28 06:20 RBC 3.49 L (4.30-5.90) m/uL Hgb 9.5 L (13.0-17.5) gm/dL Hct 30.6 L (39.0-53.0) % MCHC 30.9 L (31.0-37.0) g/dL Neutrophils # 8.7 H (1.3-7.7) k/uL Lymphocytes # 0.4 L (1.0-4.8) k/uL Sodium (135-145) mmol/L BUN (9.0-27.0) mg/dL BUN/Creatinine Ratio (12.00-20.00) Ratio Glucose (70-110) mg/dL POC Glucose (mg/dL) 383 H 376 H (75-99) mg/dL 02/06/20 02/06/20 02/06/20 Range/Units 06:20 07:00 12:12 RBC (4.30-5.90) m/uL Hgb (13.0-17.5) gm/dL Hct (39.0-53.0) % MCHC (31.0-37.0) g/dL Neutrophils # (1.3-7.7) k/uL Lymphocytes # (1.0-4.8) k/uL Sodium 134 L (135-145) mmol/L BUN 48.0 H (9.0-27.0) mg/dL BUN/Creatinine Ratio 60.00 H (12.00-20.00) Ratio Glucose 173 H (70-110) mg/dL POC Glucose (mg/dL) 170 H 238 H (75-99) mg/dL Microbiology - Last 24 Hours (Table) 02/03/20 20:49 Gram Stain - Final Sputum Sputum Culture - Final Assessment and Plan Plan: Assessment: #1. Acute hypoxic respiratory failure secondary to COVID 19 pneumonitis, patient presented to the hospital outside the window for Remdesivir, he was treated with Lovenox for elevated d-dimer, and Decadron. A d-dimer was quite elevated at 14. Chest x-ray showed extensive consolidation of the right lung, however procalcitonin level was negative at 0.06 on 02/02/2020. Patient is covered with empiric antibiotics in the form of cefepime although his blood and sputum cultures have shown no growth, his had no fever or chills. There was a concern for superinfection, over the last few days his chest x-ray shows a stable right lung consolidation, however patient clinically is stable, and patient is currently on room air. #2. Elevated inflammatory marker secondary to the COVID 19 pneumonitis with a possibility of superinfection #3. Diabetes mellitus, with steroid-induced hyperglycemia #4. Coronary artery disease with previous coronary artery bypass grafting #5. History of CHF, with diastolic dysfunction #6. Chronic obstructive pulmonary disease #7. Former smoker #8. History of B-cell lymphoma #9. History of prostate cancer #10. History of atrial fibrillation status post permanent pacemaker implantation, not on any anticoagulation in the outpatient setting #11. Increased lower extremity edema, improved with diuretics, Plan: We'll obtain a follow-up pro-calcitonin level, today's chest x-ray has been reviewed showing stable appearance of right lung consolidation of the clinically patient is stable, he is currently off the oxygen, his vitals have been stable, he has been afebrile, his blood and sputum cultures have shown no growth, we'll continue with oral Decadron, continue Lovenox at current doses, obtain a follow- up d-dimer, his inflammatory markers have improved since admission. She is requesting Dr. Osorio to see him for follow-up on his lymphoma. We'll place a co nsult. I performed a history & physical examination of the patient and discussed their management with my nurse practitioner, Analisa Nolasco. I reviewed the nurse practitioner's note and agree with the documented findings and plan of care. Lung sounds are positive for diminished breath sounds. The findings and the impression was discussed with the patient. I attest to the documentation by the nurse practitioner. Time with Patient: Less than 30
--- NOTE | 2020-02-06 14:59 | P.PN ---
Subjective Progress Note Date: 02/06/20 89-year-old male patient of Dr. Apple, was admitted via the emergency room was brought in the hospital by EMS with shortness of breath cough or phlegm production. This patient was diagnosed rossi virus positive on January 21. Has been experiencing productive cough with yellow tinged phlegm more than a teaspoon, states that his pulse ox was in the 60s in the morning of the admission complaint of increased fatigue and intermittent fevers. Ongoing history of chronic obstructive pulmonary disease. 01/29/2020 maintained on Covid regimen, except for Remdesivir-outside the window. Afebrile. Maintaining O2 sats of 90s on 6 L nasal cannula. Chest x- ray reporting diffuse right sided and left lower lobe areas of stable infiltrate, correlate for multifocal pneumonia, possible CHF. Elevated infl ammatory markers improving with the exception a d-dimer, 14. Anticoagulated on Lovenox. 01/30/2020 maintained on 6 L nasal cannula with O2 sats in the 90s. Reports productive cough with brown sputum. IV push Lasix initiated yesterday for lower extremity edema, appears to be diuresing well with 24-hour I&O inaccurate. Renal function remained stable. Levemir insulin dose increased yesterday with blood sugars better controlled today. 01/31/2020 worsening shortness of breath, now requiring 8 L nasal cannula to maintain O2 sats of 90. Diuresing well on Lasix IV push with bilateral lower ex tremity edema improving. Labs pending. Afebrile. Sputum culture pending. Preliminary blood cultures reporting no growth at 72 hours. No nausea vomiting or diarrhea. No abdominal pain. Denies chest pain or palpitations. 02/01/2020 oxygen weaned down to 6 L nasal cannula, maintaining O2 sats in the 90s. Chest x-ray stable with bilateral airspace disease with extensive right lung consolidation. IV cefepime initiated .Sitting up at side of bed, reports exertional shortness of breath. Bilateral lower extremity edema improving on Lasix. Creatinine 1.1. Afebrile. Continues on Decadron, Hyperglycemic. 02/02/20 maintaining O2 sats in the low to mid 90s on 6 L nasal cannula. Reports feeling more tired today. Levemir dose increased yesterday with blood sugars significantly improved this morning, down to the 150s. Afebrile, normal WBC. Denies chest pain, palpitations. 02/05/2020 feeling better. Improved aeration with oxygen requirements decreased further to 4 L nasal cannula-maintaining O2 sats in the low 90s. F/U Sputum cultures pending. Chest x-ray reporting diffuse pulmonary disease greater on the right. Afebrile, T-max 99.5, WBC 9. Currently on oral Lasix, diuresing well with bilateral lower extremity edema continuing to improve. BUN 44, creatinine 0.8. 02/06/2020 significant clinical improvement, oxygen weaned off, maintaining O2 sats in the 90s on room air. Afebrile, WBC 10.1. Ambulating in room, tolerating exertion well. Hemoglobin 9.5, platelets 250. Objective - Vital Signs Vital signs: Vital Signs Temp 97.8 F 02/06/20 10:00 Pulse 60 02/06/20 10:00 Resp 18 02/06/20 10:00 BP 125/76 02/06/20 10:00 Pulse Ox 93 L 02/06/20 10:00 Intake & Output 02/05/20 02/06/20 02/06/20 18:59 06:59 18:59 Intake Total 100 Output Total 300 Balance -200 Intake: Intake, IV Titration 100 Amount Cefepime 2 gm In Sodium 100 Chloride 0.9% 100 ml @ 25 mls/hr IVPB Q12H [facility] Rx# :[id number] Output: Urine 300 Other: Voiding Method Toilet Toilet Bedside Commode Bedside Commode Urinal Urinal Diaper Diaper # Voids 2 - Labs CBC & Chem 7: 02/06/20 06:20 02/06/20 06:20 Labs: Abnormal Lab Results - Last 24 Hours (Table) 02/05/20 02/05/20 02/05/20 Range/Units 11:50 17:11 20:28 RBC (4.30-5.90) m/uL Hgb (13.0-17.5) gm/dL Hct (39.0-53.0) % MCHC (31.0-37.0) g/dL Neutrophils # (1.3-7.7) k/uL Lymphocytes # (1.0-4.8) k/uL POC Glucose (mg/dL) 233 H 383 H 376 H (75-99) mg/dL 02/06/20 02/06/20 Range/Units 06:20 07:00 RBC 3.49 L (4.30-5.90) m/uL Hgb 9.5 L (13.0-17.5) gm/dL Hct 30.6 L (39.0-53.0) % MCHC 30.9 L (31.0-37.0) g/dL Neutrophils # 8.7 H (1.3-7.7) k/uL Lymphocytes # 0.4 L (1.0-4.8) k/uL POC Glucose (mg/dL) 170 H (75-99) mg/dL Microbiology - Last 24 Hours (Table) 02/03/20 20:49 Gram Stain - Final Sputum Sputum Culture - Final Assessment and Plan Assessment: (1) acute Covid 19 Pneumonitis (2) acute hypoxic respiratory failure secondary to the above, improving (3)Chronic obstructive pulmonary disease Current Visit: Yes Status: Acute Code(s): J44.9 - CHRONIC OBSTRUCTIVE PULMONARY DISEASE, UNSPECIFIED SNOMED Code(s): 35895897 (4) diabetes mellitus, hyperglycemia, hemoglobin A1c 8.1 (5) permanent pacemaker implantation not on anticoagulation outpatient (6) chronic diastolic CHF (7) CAD, history of CABG) (8) history of B-cell lymphoma (9) Atrial fibrillation with controlled ventricular rate Current Visit: Yes Status: Acute Code(s): I48.91 - UNSPECIFIED ATRIAL FIBRILLATION SNOMED Code(s): 95347208 Plan: Continue on current medication regime ,monitoring and symptomatic treatment. Maintain Covid regime,anticoagulation, antibiotics. Discharge planning in progress for tomorrow if patient able to remain off of oxygen and pending final DC recommendations and clearance from pulmonary. The impression and plan of care has been dictated as directed. : I performed a history and examination of this patient, discussed the same with the dictator. I agree with the dictator's note ,documented as a scribe. Any additional findings or plans will be noted.
[2020-02-06 15:46] LABS: C Reactive Protein 5.7 mg/L (<10.0)
[2020-02-06 17:32] LABS: Glucose,Whole Blood 364 mg/dL (75-99)
[2020-02-06] MEDS: SODIUM CHLORIDE 0.9% 1,000 ML IV SCH (19:18)
[2020-02-06 20:14] LABS: Glucose,Whole Blood 337 mg/dL (75-99)
[2020-02-06] MEDS: POTASSIUM CHLORIDE ER 20 MEQ TAB.ER PO SCH (20:40)
[2020-02-06] MEDS: INSULIN DETEMIR (LEVEMIR) 100 UNIT/ML SYR SQ SCH (20:53)
[2020-02-07] MEDS: SODIUM CHLORIDE 0.9% 1,000 ML IV SCH (02:54)
[2020-02-07] MEDS: CEFEPIME 2 GM in SODIUM CHLORIDE 0.9% 100 ML IVPB SCH (05:26)
[2020-02-07 07:01] LABS: Glucose,Whole Blood 129 mg/dL (75-99)
[2020-02-07] MEDS: INSULIN ASPART (NovoLOG) 100 UNIT/ML VIAL SQ SCH ×2 (07:12→12:07)
[2020-02-07] MEDS: ALBUTEROL HFA INHALER INHALATION SCH ×3 (07:58→15:12)
[2020-02-07] MEDS: ASCORBIC ACID 500 MG TAB PO SCH (08:31)
[2020-02-07] MEDS: CHOLECALCIFEROL 1,000 UNIT TAB PO SCH (08:31)
[2020-02-07] MEDS: atenoloL 50 MG TAB PO SCH (08:32)
[2020-02-07] MEDS: TAMSULOSIN 0.4 MG CAP.ER.24H PO SCH (08:32)
[2020-02-07] MEDS: MULTIVITAMINS, THERA 1 EACH TAB PO SCH (08:32)
[2020-02-07] MEDS: dexAMETHasone 2 MG TAB PO SCH (08:32)
[2020-02-07] MEDS: amLODIPine 5 MG TAB PO SCH (08:32)
[2020-02-07] MEDS: DIGOXIN 250 MCG TAB PO SCH (08:32)
[2020-02-07] MEDS: ZINC SULFATE 220 MG CAP PO SCH (08:32)
[2020-02-07] MEDS: FUROSEMIDE 40 MG TAB PO SCH (08:32)
[2020-02-07] MEDS: ENOXAPARIN 40 MG/0.4 ML SYRINGE SQ SCH (08:33)
--- NOTE | 2020-02-07 09:06 | XR ---
EXAMINATION TYPE: XR chest 1V portable DATE OF EXAM: 02/07/2020 COMPARISON: 02/05/2020 HISTORY: Shortness of breath TECHNIQUE: Single frontal view of the chest is obtained. FINDINGS: Cardiac device and postoperative changes seen. Diffuse airspace disease throughout the rig ht lung and patchy left-sided infiltrate appears stable. Underlying COPD suspected and there is cardi omegaly. No pneumothorax. Arthropathy of the shoulders. IMPRESSION: 1. Bilateral multifocal infiltrates compatible with pneumonia.
[2020-02-07 10:42] VITALS: RESP 18
[2020-02-07 11:43] LABS: Glucose,Whole Blood 231 mg/dL (75-99)
[2020-02-07] MEDS ORDERED: LEVOFLOXACIN 500 MG TAB PO SCH (13:00)
--- NOTE | 2020-02-07 13:41 | P.PN ---
Subjective Progress Note Date: 02/07/20 Principal diagnosis: CoVID 19 pneumonitis The patient was seen today on the regular medical floor. He is currently sitting up at the bedside. Awake and alert in no acute distress. Maintaining O2 saturation in the mid 90s on 2 L/m per nasal cannula. He denies any worsening shortness of breath, cough or congestion. He's been afebrile. Blood and sputum cultures reveal no growth. Blood glucose 231. He remains on Decadron, Lovenox, vitamin supplements. Chest x-ray continues to show bilateral multifocal infiltrates right greater than left Objective - Vital Signs Vital signs: Vital Signs Temp 97.4 F L 02/07/20 09:27 Pulse 59 L 02/07/20 09:27 Resp 18 02/07/20 09:27 BP 132/53 02/07/20 09:27 Pulse Ox 96 02/07/20 09:27 Intake & Output 02/06/20 02/07/20 02/07/20 18:59 06:59 18:59 Intake Total 200 440 Output Total 400 400 Balance -200 440 -400 Weight 78.3 kg Intake: Intake, IV Titration 200 Amount Cefepime 2 gm In Sodium 200 Chloride 0.9% 100 ml @ 25 mls/hr IVPB Q12H [facility] Rx# :[id number] Oral 440 Output: Urine 400 400 Other: Voiding Method Toilet Toilet Toilet Bedside Commode Bedside Commode Bedside Commode Urinal Urinal Urinal Diaper Diaper Diaper # Voids 1 1 - Exam GENERAL EXAM: Alert, very pleasant, 89-year-old male patient, on 2 L nasal cannula, with a pulse ox of 99%, comfortable in no apparent distress. HEAD: Normocephalic/atraumatic. EYES: Normal reaction of pupils, equal size. Conjunctiva pink, sclera white. NOSE: Clear with pink turbinates. THROAT: No erythema or exudates. NECK: No masses, no JVD, no thyroid enlargement, no adenopathy. CHEST: No chest wall deformity. Symmetrical expansion. LUNGS: Equal air entry with bilateral scattered rhonchi more so on the right. CVS: Regular rate and rhythm, normal S1 and S2, no gallops, no murmurs, no rubs ABDOMEN: Soft, nontender. No hepatosplenomegaly, normal bowel sounds, no guarding or rigidity. EXTREMITIES: No clubbing, no edema, no cyanosis, 2+ pulses and upper and lower extremities. MUSCULOSKELETAL: Muscle strength and tone normal. SPINE: No scoliosis or deformity SKIN: No rashes CENTRAL NERVOUS SYSTEM: No focal deficits, tone is normal in all 4 extremities. PSYCHIATRIC: Alert and oriented -3. Appropriate affect. Intact judgment and insight. - Labs CBC & Chem 7: 02/06/20 06:20 02/06/20 06:20 Labs: Abnormal Lab Results - Last 24 Hours (Table) 02/06/20 02/06/20 02/06/20 Range/Units 14:51 14:51 17:30 D-Dimer 2.39 H (<0.60) mg/L FEU POC Glucose (mg/dL) 364 H (75-99) mg/dL Procalcitonin 0.10 H (0.02-0.09) ng/mL 02/06/20 02/07/20 02/07/20 Range/Units 20:11 06:59 11:40 D-Dimer (<0.60) mg/L FEU POC Glucose (mg/dL) 337 H 129 H 231 H (75-99) mg/dL Procalcitonin (0.02-0.09) ng/mL Microbiology - Last 24 Hours (Table) 02/03/20 20:49 Gram Stain - Final Sputum Sputum Culture - Final Assessment and Plan Assessment: 1 Acute hypoxic respiratory failure secondary to CoVID 19 pneumonitis. Outside the window for Remdesivir. Remains on Lovenox and Decadron along with vitamin 2 Elevated inflammatory markers secondary to above 3 Diabetes mellitus 4 Coronary artery disease with previous coronary artery bypass grafting 5 History of congestive heart failure 6 Chronic obstructive pulmonary disease 7 Former smoker 8 History of B-cell lymphoma 9 History of prostate cancer 10 Atrial fibrillation status post permanent pacemaker implantation, not on anticoagulation in the outpatient setting Plan: The patient was seen and evaluated by Dr. Deleon Chest x-ray and labs reviewed He is cleared for discharge from the pulmonary standpoint Evaluate for possible home oxygen Complete a seven-day course of Levaquin 500 mg daily Follow-up in our office in 1-2 weeks' time I, the cosigning physician, performed a history & physical examination of the patient. Lungs sounds scattered rhonchi more so on the right lung. Maintaining good O2 saturations in the 90s on 2 L/m per nasal cannula. I discussed the assessment and plan of care with my nurse practitioner, Patience Lim. I attest to the above note as dictated by her.
[2020-02-07] MEDS ORDERED: PANTOPRAZOLE 40 MG TABLET PO SCH (13:45)
--- NOTE | 2020-02-07 13:57 | P.DS ---
Providers Date of admission: 01/27/20 13:33 Expected date of discharge: 02/07/20 Attending physician: Ricardo Wu Consults: 01/27/20 13:34 Consult Physician Routine Consulting Provider: Pelon Espinoza Consult Reason/Comments: covid 19 Do you want consulting provider notified?: Yes 02/06/20 11:27 Consult Physician Routine Consulting Provider: Jose Osorio Consult Reason/Comments: follow up lymphoma Do you want consulting provider notified?: Yes Primary care physician: Harvey Apple Hospital Course: Final diagnoses (1) acute Covid 19 Pneumonitis (2) acute hypoxic respiratory failure secondary to the above, improving (3)Chronic obstructive pulmonary disease Current Visit: Yes Status: Acute Code(s): J44.9 - CHRONIC OBSTRUCTIVE PULMONARY DISEASE, UNSPECIFIED SNOMED Code(s): 84527160 (4) diabetes mellitus, hyperglycemia, hemoglobin A1c 8.1 (5) permanent pacemaker implantation not on anticoagulation outpatient (6) chronic diastolic CHF (7) CAD, history of CABG) (8) history of B-cell lymphoma (9) Atrial fibrillation with controlled ventricular rate Current Visit: Yes Status: Acute Code(s): I48.91 - UNSPECIFIED ATRIAL FIBRILLATION SNOMED Code(s): 22595938 Hospital course:89-year-old male patient of Dr. Apple, was admitted via the emergency room was brought in the hospital by EMS with shortness of breath cough or phlegm production. This patient was diagnosed rossi virus positive on January 21. Has been experiencing productive cough with yellow tinged phlegm more than a teaspoon, states that his pulse ox was in the 60s in the morning of the admission complaint of increased fatigue and intermittent fevers. Ongoing history of chronic obstructive pulmonary disease. 01/29/2020 maintained on Covid regimen, except for Remdesivir-outside the window. Afebrile. Maintaining O2 sats of 90s on 6 L nasal cannula. Chest x- ray reporting diffuse right sided and left lower lobe areas of stable infiltrate, correlate for multifocal pneumonia, possible CHF. Elevated inflammatory markers improving with the exception a d-dimer, 14. Anticoagulated on Lovenox. 01/30/2020 maintained on 6 L nasal cannula with O2 sats in the 90s. Reports productive cough with brown sputum. IV push Lasix initiated yesterday for lower extremity edema, appears to be diuresing well with 24-hour I&O inaccurate. Renal function remained stable. Levemir insulin dose increased yesterday with blood sugars better controlled today. 01/31/2020 worsening shortness of breath, now requiring 8 L nasal cannula to maintain O2 sats of 90. Diuresing well on Lasix IV push with bilateral lower extremity edema improving. Labs pending. Afebrile. Sputum culture pending. Preliminary blood cultures reporting no growth at 72 hours. No nausea vomiting or diarrhea. No abdominal pain. Denies chest pain or palpitations. 02/01/2020 oxygen weaned down to 6 L nasal cannula, maintaining O2 sats in the 90s. Chest x-ray stable with bilateral airspace disease with extensive right lung consolidation. IV cefepime initiated .Sitting up at side of bed, reports exertional shortness of breath. Bilateral lower extremity edema improving on Lasix. Creatinine 1.1. Afebrile. Continues on Decadron, Hyperglycemic. 02/02/20 maintaining O2 sats in the low to mid 90s on 6 L nasal cannula. Reports feeling more tired today. Levemir dose increased yesterday with blood sugars significantly improved this morning, down to the 150s. Afebrile, normal WBC. Denies chest pain, palpitations. 02/05/2020 feeling better. Improved aeration with oxygen requirements decreased further to 4 L nasal cannula-maintaining O2 sats in the low 90s. F/U Sputum cultures pending. Chest x-ray reporting diffuse pulmonary disease greater on the right. Afebrile, T-max 99.5, WBC 9. Currently on oral Lasix, diuresing well with bilateral lower extremity edema continuing to improve. BUN 44, creatinine 0.8. 02/06/2020 significant clinical improvement, oxygen weaned off, maintaining O2 sats in the 90s on room air. Afebrile, WBC 10.1. Ambulating in room, tolerating exertion well. Hemoglobin 9.5, platelets 250. Significant clinical improvement. Cleared by pulmonary for discharge. Pulmonary recommending Levaquin 1 week at discharge. PCP, Dr. Wu recommending prednisone 10 mg daily at [place] with tapering outpatient. Patient will be discharged home today in a stable condition with guarded prognosis. The impression and plan of care has been dictated as directed. : I performed a history and examination of this patient, discussed the same with the dictator. I agree with the dictator's note ,documented as a scribe. Any additional findings or plans will be noted. Patient Condition at Discharge: Stable Plan - Discharge Summary Discharge Rx Participant: No New Discharge Prescriptions: New Levofloxacin [Levaquin] 500 mg PO Q24H #7 tab Zinc Sulfate [Orazinc] 220 mg PO DAILY cap Ascorbic Acid [Vitamin C] 1,000 mg PO DAILY tab Cholecalciferol [Vitamin D3 (25 Mcg = 1000 Iu)] 1,000 unit PO DAILY tab Aspirin EC [Ecotrin Low Dose] 81 mg PO DAILY #60 tablet. predniSONE 10 mg PO DAILY #20 tab Insulin Detemir (Levemir) [Levemir] 20 unit SQ HS #1 syr Pantoprazole [Protonix] 40 mg PO AC-BRKFST #30 tablet. Continue Tamsulosin [Flomax] 0.4 mg PO BID atenoloL [Tenormin] 50 mg PO QAM Digoxin [Digitek] 250 mcg PO QAM Furosemide [Lasix] 40 mg PO QAM amLODIPine [Norvasc] 5 mg PO DAILY Ipratropium/Albuterol Sulfate [Combivent Respimat Inhaler] 1 puff INHALATION RT-QID PRN PRN Reason: Shortness Of Breath Multivitamin [Men's Multi-Vitamin] 1 tab PO DAILY Potassium Chloride [Klor-Con 20] 20 meq PO HS Discharge Medication List Digoxin [Digitek] 250 mcg PO QAM 06/07/14 [History] Tamsulosin [Flomax] 0.4 mg PO BID 06/07/14 [History] atenoloL [Tenormin] 50 mg PO QAM 06/07/14 [History] Furosemide [Lasix] 40 mg PO QAM 09/29/16 [History] Ipratropium/Albuterol Sulfate [Combivent Respimat Inhaler] 1 puff INHALATION RT- QID PRN 09/29/16 [History] amLODIPine [Norvasc] 5 mg PO DAILY 09/29/16 [History] Multivitamin [Men's Multi-Vitamin] 1 tab PO DAILY 07/29/17 [History] Potassium Chloride [Klor-Con 20] 20 meq PO HS 01/27/20 [History] Ascorbic Acid [Vitamin C] 1,000 mg PO DAILY tab 02/07/20 [Rx] Aspirin EC [Ecotrin Low Dose] 81 mg PO DAILY #60 tablet. 02/07/20 [Rx] Cholecalciferol [Vitamin D3 (25 Mcg = 1000 Iu)] 1,000 unit PO DAILY tab 02/07/20 [Rx] Insulin Detemir (Levemir) [Levemir] 20 unit SQ HS #1 syr 02/07/20 [Rx] Levofloxacin [Levaquin] 500 mg PO Q24H #7 tab 02/07/20 [Rx] Pantoprazole [Protonix] 40 mg PO AC-BRKFST #30 tablet. 02/07/20 [Rx] Zinc Sulfate [Orazinc] 220 mg PO DAILY cap 02/07/20 [Rx] predniSONE 10 mg PO DAILY #20 tab 02/07/20 [Rx] Follow up Appointment(s)/Referral(s): Pelon Espinoza DO [Doctor of Osteopathic Medicine] - 03/19/20 9:15 am Harvey Apple MD [Primary Care Provider] - 02/19/20 2:30 pm
[2020-02-07 15:29] VITALS: BP 116/54; PULSE 60; TEMP 97.5
--- NOTE | 2020-02-07 15:38 | P.CONS ---
History of Present Illness - Reason for Consult Consult date: 02/07/20 Lymphoma Requesting physician: Jong Deleon - Chief Complaint LINK, covid positive - History of Present Illness Mr. Buitrago is a very pleasant male pt of Dr. Osorio with multiple medical problems including iron deficient anemia since 2006, has had multiple upper and lower endoscopies, as well as a capsule endoscopy which were negative. He had extensive anemia w/u, which was negative other than for iron deficiency. 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 Extensive cardiac history with bypass done in 2002, with periodic cardiac catheterizations. History of prostate cancer, treated with definitive radiation, in the mid . 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 He had a CT of the chest abdomen and pelvis on 10/05/18 due to weight loss, about 30 pounds since early spring 2018. This showed evidence of underlying cirrhosis. Incidentally an enlarged left axillary node at 1.2 cm was seen. Biopsy on 10/17/18, specimen was initially acellular and felt to be nondiagnostic. As based on clinical exam, and otherwise negative labs and scans, it was felt highly unlikely that the node was pathologic at that time and it was decided to follow with observation. US of the axilla in late 03/13 showed increase in size of the L axillary node to 3.8 cm. Had excisional biopsy on 04/19/19, pathology showed a poorly differentiated lymphoma, CD 20 and CD 30 p ositive, either a HL or large B cell variant. 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 PET scan revealed uptake in the left axilla, including a couple of adjacent subcentimeter nodes. There was low level uptake at T4, without any corresponding lesion, which was nonspecific. Evidence of chronic liver disease and portal hypertension with splenomegaly was again seen. Was felt to be borderline candidate for treatment, due to his age and other medical problems. He was initially agreeable to start bendamustine and Rituxan however, he subsequently called back and stated that he had decided against treating his lymphoma actively. He is current on his f/u, last seen in early Jan. He was in process of receiving his parenteral iron infusion when he started having respiratory symptoms and weakness. He is covid positive. States today he is feeling pretty good. Review of Systems 10 point ROS is negative except as stated in HPI Past Medical History Past Medical History: Atrial Fibrillation, Cancer, COPD, Diabetes Mellitus, GERD/Reflux, Hypertension, Osteoarthritis (OA), Prostate Disorder, Skin Disorder Additional Past Medical History / Comment(s): Colon polyps, endocarditis, spinal stenosis, prostate cancer - had radiation & seed implants, edema jr legs, skin CA scalp, chronic anemia - receives iron transfusions, lump left axilla History of Any Multi-Drug Resistant Organisms: None Reported Past Surgical History: Adenoidectomy, Appendectomy, Cholecystectomy, Coronary Bypass/CABG, Heart Catheterization, Hernia Repair, Pacemaker, Tonsillectomy Additional Past Surgical History / Comment(s): triple bypass ([place] 2001), left hydrocele repair (child), cataracts, colonoscopies Past Anesthesia/Blood Transfusion Reactions: No Reported Reaction Type of Cardiac Device: Permanent Pacemaker Device Placement Date:: [facility] 2016 Past Psychological History: No Psychological Hx Reported Smoking Status: Former smoker Past Alcohol Use History: Occasional Additional Past Alcohol Use History / Comment(s): quit smoking 1992, started smoking age 16 smoked 1ppd Past Drug Use History: None Reported - Past Family History Mother Additional Family Medical History / Comment(s): heart problems Father Family Medical History: Cancer Additional Family Medical History / Comment(s): colon CA Son(s) Family Medical History: Cancer Brother(s) Family Medical History: Cancer Medications and Allergies Home Medications Medication Instructions Recorded Confirmed Type Digoxin [Digitek] 250 mcg PO QAM 06/07/14 01/27/20 History Tamsulosin [Flomax] 0.4 mg PO BID 06/07/14 01/27/20 History atenoloL [Tenormin] 50 mg PO QAM 06/07/14 01/27/20 History Furosemide [Lasix] 40 mg PO QAM 09/29/16 01/27/20 History Ipratropium/Albuterol Sulfate 1 puff INHALATION RT-QID PRN 09/29/16 01/27/20 History [Combivent Respimat Inhaler] amLODIPine [Norvasc] 5 mg PO DAILY 09/29/16 01/27/20 History Multivitamin [Men's Multi-Vitamin] 1 tab PO DAILY 07/29/17 01/27/20 History Potassium Chloride [Klor-Con 20] 20 meq PO HS 01/27/20 01/27/20 History Ascorbic Acid [Vitamin C] 1,000 mg PO DAILY tab 02/07/20 Rx Aspirin EC [Ecotrin Low Dose] 81 mg PO DAILY #60 tablet. 02/07/20 Rx Cholecalciferol [Vitamin D3 (25 1,000 unit PO DAILY tab 02/07/20 Rx Mcg = 1000 Iu)] Insulin Detemir (Levemir) [Levemir] 20 unit SQ HS #1 syr 02/07/20 Rx Levofloxacin [Levaquin] 500 mg PO Q24H #7 tab 02/07/20 Rx Pantoprazole [Protonix] 40 mg PO AC-BRKFST #30 tablet. 02/07/20 Rx Zinc Sulfate [Orazinc] 220 mg PO DAILY cap 02/07/20 Rx predniSONE 10 mg PO DAILY #20 tab 02/07/20 Rx Allergies Allergy/AdvReac Type Severity Reaction Status Date / Time Penicillins Allergy Rash/Hives Verified 01/27/20 13:05 tetanus immune globulin AdvReac extreme Verified 01/27/20 13:05 swelling entire arm Physical Exam Vitals: Vital Signs Temp Pulse Resp BP Pulse Ox 02/07/20 09:27 97.4 F L 59 L 18 132/53 96 02/07/20 08:00 59 L 18 02/07/20 05:37 97.4 F L 60 15 155/63 99 02/07/20 01:57 97.6 F 70 16 134/56 95 02/06/20 22:26 97.8 F 60 15 151/72 93 L 02/06/20 21:00 16 02/06/20 18:00 98.0 F 63 18 143/68 95 02/06/20 14:00 97.8 F 61 17 125/53 96 Intake and Output 02/06/20 02/07/20 02/07/20 22:59 06:59 14:59 Intake Total 640 Output Total 400 400 Balance 240 -400 Intake: Intake, IV Titration 200 Amount Cefepime 2 gm In Sodium 200 Chloride 0.9% 100 ml @ 25 mls/hr IVPB Q12H [facility] Rx# :[id number] Oral 440 Output: Urine 400 400 Other: Voiding Method Toilet Toilet Bedside Commode Bedside Commode Urinal Urinal Diaper Diaper # Voids 1 1 Weight 78.3 kg - Constitutional General appearance: average body habitus, cooperative, no acute distress - EENT Eyes: anicteric sclerae, EOMI ENT: hearing grossly normal - Neck Neck: lymphadenopathy - Respiratory Respiratory: bilateral: diminished - Cardiovascular Heart sounds: normal: S1, S2 Abnormal Heart Sounds: no systolic murmur, no diastolic murmur, no rub, no S3 Gallop, no S4 Gallop, no click, no other leg Peripheral Edema: bilateral: None - Gastrointestinal General gastrointestinal: normal bowel sounds, soft - Neurologic Neurologic: CNII-XII intact - Musculoskeletal Musculoskeletal: generalized weakness - Psychiatric Psychiatric: A&O x's 3, appropriate affect, intact judgment & insight Results CBC & Chem 7: 02/06/20 06:20 02/06/20 06:20 Labs: Abnormal Lab Results - Last 24 Hours (Table) 02/06/20 02/06/20 02/06/20 Range/Units 06:20 14:51 14:51 D-Dimer 2.39 H (<0.60) mg/L FEU Sodium 134 L (135-145) mmol/L BUN 48.0 H (9.0-27.0) mg/dL BUN/Creatinine Ratio 60.00 H (12.00-20.00) Ratio Glucose 173 H (70-110) mg/dL POC Glucose (mg/dL) (75-99) mg/dL Procalcitonin 0.10 H (0.02-0.09) ng/mL 02/06/20 02/06/20 02/07/20 Range/Units 17:30 20:11 06:59 D-Dimer (<0.60) mg/L FEU Sodium (135-145) mmol/L BUN (9.0-27.0) mg/dL BUN/Creatinine Ratio (12.00-20.00) Ratio Glucose (70-110) mg/dL POC Glucose (mg/dL) 364 H 337 H 129 H (75-99) mg/dL Procalcitonin (0.02-0.09) ng/mL 02/07/20 Range/Units 11:40 D-Dimer (<0.60) mg/L FEU Sodium (135-145) mmol/L BUN (9.0-27.0) mg/dL BUN/Creatinine Ratio (12.00-20.00) Ratio Glucose (70-110) mg/dL POC Glucose (mg/dL) 231 H (75-99) mg/dL Procalcitonin (0.02-0.09) ng/mL Microbiology - Last 24 Hours (Table) 02/03/20 20:49 Gram Stain - Final Sputum Sputum Culture - Final Chest x-ray: report reviewed CT scan - chest: report reviewed Assessment and Plan (1) COVID-19 Current Visit: Yes Status: Acute Priority: High Code(s): U07.1 - COVID-19 SNOMED Code(s): 884972251 (2) NHL (non-Hodgkin's lymphoma) Narrative/Plan: Pt has deferred treatment. Most recent imaging is showing overall stable lymphadenopathy. Current Visit: Yes Status: Acute Code(s): C85.90 - NON-HODGKIN LYMPHOMA, UNSPECIFIED, UNSPECIFIED SITE SNOMED Code(s): 726217274 (3) Iron deficiency anemia Narrative/Plan: Pt missed his last parenteral dose of iron. Do not want him to be supplemented with active covid infection. His ferritin is elevated due to illness. He will f/u outpt once he is feeling better and we will get him back on track. Current Visit: Yes Status: Chronic Priority: Medium Code(s): D50.9 - IRON DEFICIENCY ANEMIA, UNSPECIFIED SNOMED Code(s): 99112401
== END 2020-02-07 17:08 | disposition home health service (06) | DRG 177 ==
LOC: EC 08:28 → 4SSUR 13:33
PROVIDERS: ADMIT Family Medicine; ATTEND Family Medicine
DX: U07.1 COVID-19 (principal); J12.89 Other viral pneumonia; J96.01 Acute respiratory failure with hypoxia; I48.20 Chronic atrial fibrillation, unspecified; K76.6 Portal hypertension; I50.32 Chronic diastolic (congestive) heart failure; J44.1 Chronic obstructive pulmonary disease with (acute) exacerbation; J44.0 Chronic obstructive pulmonary disease with (acute) lower respiratory infection; C83.30 Diffuse large B-cell lymphoma, unspecified site; I11.0 Hypertensive heart disease with heart failure; K74.60 Unspecified cirrhosis of liver; D50.9 Iron deficiency anemia, unspecified; E11.65 Type 2 diabetes mellitus with hyperglycemia; K62.7 Radiation proctitis; K55.20 Angiodysplasia of colon without hemorrhage; I25.10 Atherosclerotic heart disease of native coronary artery without angina pectoris; K21.9 Gastro-esophageal reflux disease without esophagitis; M19.90 Unspecified osteoarthritis, unspecified site; M48.00 Spinal stenosis, site unspecified; T38.0X5A Adverse effect of glucocorticoids and synthetic analogues, initial encounter; Z79.899 Other long term (current) drug therapy; Z87.891 Personal history of nicotine dependence; Z92.3 Personal history of irradiation; Z85.46 Personal history of malignant neoplasm of prostate; Z85.828 Personal history of other malignant neoplasm of skin; Z90.49 Acquired absence of other specified parts of digestive tract; Z86.010 Personal history of colon polyps; Z87.19 Personal history of other diseases of the digestive system; Z90.89 Acquired absence of other organs; Z95.0 Presence of cardiac pacemaker; Z95.1 Presence of aortocoronary bypass graft; Z98.42 Cataract extraction status, left eye; Z98.41 Cataract extraction status, right eye; Z98.890 Other specified postprocedural states; Z88.0 Allergy status to penicillin; Z88.7 Allergy status to serum and vaccine; Y84.2 Radiological procedure and radiotherapy as the cause of abnormal reaction of the patient, or of later complication, without mention of misadventure at the time of the procedure; Z80.0 Family history of malignant neoplasm of digestive organs
CPT/HCPCS: 36415; 71045; 71275; 80048; 80053; 82550; 82728; 83036; 83605; 83615; 83735; 83880; 84145; 84484; 85025; 85027; 85379; 85610; 85730; 86140; 87040; 87070; 87205; 87502; 93005; 94640; 96361; 96374; 96375; 99291

== ENCOUNTER 2020-02-20 16:53 | Inpatient (IN) | payer MEDICARE, BC ==
[2020-02-20 17:52] LABS: Anisocytosis Slight; Basophils % (A) 0 %; Eosinophils % (A) 1 %; HCT 21.2 % (39.0-53.0); Hypochromasia Moderate; Lymphocytes # (A) 0.2 k/uL (1.0-4.8); Lymphocytes % (A) 5 %; MCH 28.3 pg (25.0-35.0); MCHC 30.5 g/dL (31.0-37.0); MCV 92.6 fL (80.0-100.0); Mean Platelet Volume 7.9; Monocytes # (A) 0.1 k/uL (0-1.0); Monocytes % (A) 2 %; Neutrophils # (A) 3.8 k/uL (1.3-7.7); Neutrophils % (A) 90 %; Platelet Count 144 k/uL (150-450); Poikilocytosis Slight; RBC 2.29 m/uL (4.30-5.90); RDW 16.5 % (11.5-15.5); WBC 4.2 k/uL (3.8-10.6)
[2020-02-20 17:54] LABS: Albumin 2.9 g/dL (3.5-5.0); Calcium 8.7 mg/dL (8.4-10.2); Potassium 5.2 mmol/L (3.5-5.1); Total Bilirubin 0.4 mg/dL (0.2-1.3); Total Protein 5.8 g/dL (6.3-8.2)
[2020-02-20 17:54] LABS: Partial Thromboplastin Time 25.8 sec (22.0-30.0); Prothrombin Time 10.6 sec (9.0-12.0)
[2020-02-20 17:56] LABS: HGB 6.5 gm/dL (13.0-17.5)
--- NOTE | 2020-02-20 18:20 | ED ---
General Adult HPI - General Chief complaint: Recheck/Abnormal Lab/Rx Stated complaint: Abnormal Labs Time Seen by Provider: 02/20/20 17:00 Source: patient Mode of arrival: EMS Limitations: no limitations - History of Present Illness Initial comments: Patient is an 89-year-old male with multiple comorbid conditions who presents emergency room with reported A. fib, diabetes, hypertension, chronic oxygen dependence who presents emergency department from Dr. Apple's office. Dr. Apple does call the emergency department and relayed the history that the patient has been feeling weak recently. He was hospitalized with Covid earlier this month. The patient did follow-up today in his office and had laboratory studies performed. It was noted that the patient had a hemoglobin of [address] Apple told him to go into the emergency department for a transfusion. Patient states this is chronic for him. He did have to iron infusions earlier this month. He is also received blood. White states the patient's stool has been dark however the patient reports that it is always dark. He states he is iron deficient but denies a history of GI bleeding to me. He denies any nausea or vomiting. No hematemesis or hemoptysis. Admits to weakness. Patient's does not ambulate much at baseline. States he occasionally uses a walker. He denies any abdominal pain. No chest pain or shortness of breath. No other alleviating, enterprise sales executive modifying factors - Related Data Home Medications Medication Instructions Recorded Confirmed Digoxin [Digitek] 250 mcg PO QAM 06/07/14 02/20/20 Tamsulosin [Flomax] 0.4 mg PO BID 06/07/14 02/20/20 atenoloL [Tenormin] 50 mg PO QAM 06/07/14 02/20/20 Furosemide [Lasix] 40 mg PO QAM 09/29/16 02/20/20 Ipratropium/Albuterol Sulfate 1 puff INHALATION RT-QID PRN 09/29/16 02/20/20 [Combivent Respimat Inhaler] amLODIPine [Norvasc] 5 mg PO DAILY 09/29/16 02/20/20 Multivitamin [Men's Multi-Vitamin] 1 tab PO DAILY 07/29/17 02/20/20 Potassium Chloride [Klor-Con 20] 20 meq PO HS 01/27/20 02/20/20 Insulin Detemir (Levemir) [Levemir] 30 unit SQ HS 02/20/20 02/20/20 predniSONE 40 mg PO DAILY 02/20/20 02/20/20 Previous Rx's Medication Instructions Recorded Ascorbic Acid [Vitamin C] 1,000 mg PO DAILY tab 02/07/20 Aspirin EC [Ecotrin Low Dose] 81 mg PO DAILY #60 tablet. 02/07/20 Cholecalciferol [Vitamin D3 (25 1,000 unit PO DAILY tab 02/07/20 Mcg = 1000 Iu)] Pantoprazole [Protonix] 40 mg PO AC-BRKFST #30 tablet. 02/07/20 INSULIN ASPART (NovoLOG) [NovoLOG 0 unit SQ ACHS #0 vial 02/21/20 (formulary)] Allergies Allergy/AdvReac Type Severity Reaction Status Date / Time Penicillins Allergy Rash/Hives Verified 02/20/20 18:47 tetanus immune globulin AdvReac extreme Verified 02/20/20 18:47 swelling entire arm Review of Systems ROS Statement: Those systems with pertinent positive or pertinent negative responses have been documented in the HPI. ROS Other: All systems not noted in ROS Statement are negative. Past Medical History Past Medical History: Atrial Fibrillation, Cancer, COPD, Diabetes Mellitus, GERD/Reflux, Hypertension, Osteoarthritis (OA), Prostate Disorder, Skin Disorder Additional Past Medical History / Comment(s): Colon polyps, endocarditis, spinal stenosis, prostate cancer - had radiation & seed implants, edema jr legs, skin CA scalp, chronic anemia - receives iron transfusions, lump left axilla History of Any Multi-Drug Resistant Organisms: None Reported Past Surgical History: Adenoidectomy, Appendectomy, Cholecystectomy, Coronary Bypass/CABG, Heart Catheterization, Hernia Repair, Pacemaker, Tonsillectomy Additional Past Surgical History / Comment(s): triple bypass ([place] 2001), left hydrocele repair (child), cataracts, colonoscopies Past Anesthesia/Blood Transfusion Reactions: No Reported Reaction Type of Cardiac Device: Permanent Pacemaker Device Placement Date:: . [id number] Past Psychological History: No Psychological Hx Reported Smoking Status: Former smoker Past Alcohol Use History: Occasional Past Drug Use History: None Reported - Past Family History Mother Additional Family Medical History / Comment(s): heart problems Father Family Medical History: Cancer Additional Family Medical History / Comment(s): colon CA Son(s) Family Medical History: Cancer Brother(s) Family Medical History: Cancer General Exam Limitations: no limitations General appearance: alert, in no apparent distress Head exam: Present: atraumatic, normocephalic, normal inspection Eye exam: Present: normal appearance, PERRL, EOMI. Absent: scleral icterus, conjunctival injection, periorbital swelling ENT exam: Present: normal exam, mucous membranes moist Respiratory exam: Present: wheezes. Absent: respiratory distress, accessory muscle use Cardiovascular Exam: Present: regular rate, normal rhythm, normal heart sounds. Absent: systolic murmur, diastolic murmur, rubs, gallop, clicks GI/Abdominal exam: Present: soft, normal bowel sounds. Absent: distended, tenderness, guarding, rebound, rigid Rectal exam: Present: black stool Neurological exam: Present: alert, oriented X3, CN II-XII intact Psychiatric exam: Present: normal affect, normal mood Course Vital Signs 02/20/20 02/20/20 02/20/20 17:00 17:09 18:00 Temperature 98.5 F Pulse Rate 61 61 60 Respiratory 18 20 18 Rate Blood Pressure 125/50 132/49 O2 Sat by Pulse 98 100 98 Oximetry 02/20/20 19:00 Temperature Pulse Rate 60 Respiratory 17 Rate Blood Pressure 134/46 O2 Sat by Pulse 99 Oximetry EKG Findings - EKG Comments: EKG Findings:: EKG demonstrates a ventricularly paced rhythm. Rate of 60. QRS 172. QTC of 420. Negative for Sgarbossa criteria Procedures - [place] Protocol (Time Out) Nurse: Anali De Santiago Medical Decision Making - Medical Decision Making Upon arrival patient is placed into room 24. A thorough history and physical exam was performed. Vital signs are stable. Patient is wearing his 4 L of oxygen. Laboratory studies are performed. Patient's hemoglobin is 6.5 at her facility. He is given prescription for 1 unit of blood. Sodium 126 with a potassium of 5.2. Glucose is elevated at 405. Normal saline is started at 75 mL per hour due to his lactic acidosis, hyper glycemia and hyponatremia. Fecal occult does come back and is positive. I discussed results of the patient. Did highly recommend hospitalization in order to transfuse and check the patient's laboratory studies in the morning. I will consult GI. Patient is difficult to persuade however does agree to stay in the hospital. I called and discussed case with Dr. Apple who agreed to admit the patient. He is currently awaiting a bed on the floor - Lab Data Result diagrams: 02/21/20 06:01 02/21/20 06:01 Lab Results 02/20/20 02/20/20 02/20/20 Range/Units 17:28 17:30 17:30 WBC 4.2 (3.8-10.6) k/uL RBC 2.29 L (4.30-5.90) m/uL Hgb 6.5 L* D (13.0-17.5) gm/dL Hct 21.2 L (39.0-53.0) % MCV 92.6 (80.0-100.0) fL MCH 28.3 (25.0-35.0) pg MCHC 30.5 L (31.0-37.0) g/dL RDW 16.5 H (11.5-15.5) % Plt Count 144 L (150-450) k/uL MPV 7.9 Neutrophils % 90 % Lymphocytes % 5 % Monocytes % 2 % Eosinophils % 1 % Basophils % 0 % Neutrophils # 3.8 (1.3-7.7) k/uL Lymphocytes # 0.2 L (1.0-4.8) k/uL Monocytes # 0.1 (0-1.0) k/uL Eosinophils # 0.0 (0-0.7) k/uL Basophils # 0.0 (0-0.2) k/uL Hypochromasia Moderate Poikilocytosis Slight Anisocytosis Slight PT 10.6 (9.0-12.0) sec INR 1.0 (<1.2) APTT 25.8 (22.0-30.0) sec Sodium (137-145) mmol/L Potassium (3.5-5.1) mmol/L Chloride (98-107) mmol/L Carbon Dioxide (22-30) mmol/L Anion Gap mmol/L BUN (9-20) mg/dL Creatinine (0.66-1.25) mg/dL Est GFR (CKD-EPI)AfAm (>60 ml/min/1.73 sqM) Est GFR (CKD-EPI)NonAf (>60 ml/min/1.73 sqM) Glucose (74-99) mg/dL Lactic Ac Sepsis Rflx Plasma Lactic Acid Caleb (0.7-2.0) mmol/L Calcium (8.4-10.2) mg/dL Total Bilirubin (0.2-1.3) mg/dL AST (17-59) U/L ALT (4-49) U/L Alkaline Phosphatase (38-126) U/L Troponin I (0.000-0.034) ng/mL Total Protein (6.3-8.2) g/dL Albumin (3.5-5.0) g/dL Stool Occult Blood (Negative) Blood Type A2 Negative Blood Type Recheck A2 Neg Bld Type Recheck Status CABO Indicated Antibody Screen NEGATIVE Crossmatch See Detail Spec Expiration Date 02/23/2020 - 232702/20/20 02/20/20 02/20/20 Range/Units 17:30 17:30 17:34 WBC (3.8-10.6) k/uL RBC (4.30-5.90) m/uL Hgb (13.0-17.5) gm/dL Hct (39.0-53.0) % MCV (80.0-100.0) fL MCH (25.0-35.0) pg MCHC (31.0-37.0) g/dL RDW (11.5-15.5) % Plt Count (150-450) k/uL MPV Neutrophils % % Lymphocytes % % Monocytes % % Eosinophils % % Basophils % % Neutrophils # (1.3-7.7) k/uL Lymphocytes # (1.0-4.8) k/uL Monocytes # (0-1.0) k/uL Eosinophils # (0-0.7) k/uL Basophils # (0-0.2) k/uL Hypochromasia Poikilocytosis Anisocytosis PT (9.0-12.0) sec INR (<1.2) APTT (22.0-30.0) sec Sodium (137-145) mmol/L Potassium (3.5-5.1) mmol/L Chloride (98-107) mmol/L Carbon Dioxide (22-30) mmol/L Anion Gap mmol/L BUN (9-20) mg/dL Creatinine (0.66-1.25) mg/dL Est GFR (CKD-EPI)AfAm (>60 ml/min/1.73 sqM) Est GFR (CKD-EPI)NonAf (>60 ml/min/1.73 sqM) Glucose (74-99) mg/dL Lactic Ac Sepsis Rflx Plasma Lactic Acid Caleb 3.1 H* (0.7-2.0) mmol/L Calcium (8.4-10.2) mg/dL Total Bilirubin (0.2-1.3) mg/dL AST (17-59) U/L ALT (4-49) U/L Alkaline Phosphatase (38-126) U/L Troponin I <0.012 (0.000-0.034) ng/mL Total Protein (6.3-8.2) g/dL Albumin (3.5-5.0) g/dL Stool Occult Blood Positive (Negative) Blood Type Blood Type Recheck Bld Type Recheck Status Antibody Screen Crossmatch Spec Expiration Date 02/20/20 02/20/20 Range/Units 17:34 17:56 WBC (3.8-10.6) k/uL RBC (4.30-5.90) m/uL Hgb (13.0-17.5) gm/dL Hct (39.0-53.0) % MCV (80.0-100.0) fL MCH (25.0-35.0) pg MCHC (31.0-37.0) g/dL RDW (11.5-15.5) % Plt Count (150-450) k/uL MPV Neutrophils % % Lymphocytes % % Monocytes % % Eosinophils % % Basophils % % Neutrophils # (1.3-7.7) k/uL Lymphocytes # (1.0-4.8) k/uL Monocytes # (0-1.0) k/uL Eosinophils # (0-0.7) k/uL Basophils # (0-0.2) k/uL Hypochromasia Poikilocytosis Anisocytosis PT (9.0-12.0) sec INR (<1.2) APTT (22.0-30.0) sec Sodium 126 L (137-145) mmol/L Potassium 5.2 H (3.5-5.1) mmol/L Chloride 85 L (98-107) mmol/L Carbon Dioxide 36 H (22-30) mmol/L Anion Gap 5 mmol/L BUN 44 H (9-20) mg/dL Creatinine 1.03 (0.66-1.25) mg/dL Est GFR (CKD-EPI)AfAm 76 (>60 ml/min/1.73 sqM) Est GFR (CKD-EPI)NonAf 65 (>60 ml/min/1.73 sqM) Glucose 405 H (74-99) mg/dL Lactic Ac Sepsis Rflx Y Plasma Lactic Acid Caleb (0.7-2.0) mmol/L Calcium 8.7 (8.4-10.2) mg/dL Total Bilirubin 0.4 (0.2-1.3) mg/dL AST 20 (17-59) U/L ALT 18 (4-49) U/L Alkaline Phosphatase 69 (38-126) U/L Troponin I (0.000-0.034) ng/mL Total Protein 5.8 L (6.3-8.2) g/dL Albumin 2.9 L (3.5-5.0) g/dL Stool Occult Blood (Negative) Blood Type Blood Type Recheck Bld Type Recheck Status Antibody Screen Crossmatch Spec Expiration Date Critical Care Time Critical Care Time: Yes Critical Care Time: 35 minutes Disposition Clinical Impression: NHL (non-Hodgkin's lymphoma), Anemia, Hyponatremia, Hyperglycemia, GI bleed, Chronic respiratory insufficiency Disposition: ADMITTED IP TO THIS [facility] Condition: Fair Is patient prescribed a controlled substance at d/c from ED?: No Decision to Admit Reason: Admit from EC Decision Date: 02/20/20 Decision Time: 18:45
[2020-02-20] MEDS ORDERED: NALOXONE 0.4 MG/ML 1 ML VIAL IV PRN (18:45)
[2020-02-20] MEDS ORDERED: PANTOPRAZOLE 40 MG/10 ML VIAL IVP ONE (18:47)
[2020-02-20] MEDS: SODIUM CHLORIDE 0.9% 1,000 ML IV SCH (19:11)
[2020-02-20 20:45] LABS: Glucose,Whole Blood 365 mg/dL (75-99)
[2020-02-20] MEDS: INSULIN ASPART (NovoLOG) 100 UNIT/ML VIAL SQ SCH (20:52)
[2020-02-21 07:08] LABS: Anisocytosis Slight; Basophils % (A) 0 %; Eosinophils # (A) 0.1 k/uL (0-0.7); Eosinophils % (A) 1 %; HCT 23.8 % (39.0-53.0); HGB 7.4 gm/dL (13.0-17.5); Hypochromasia Moderate; Lymphocytes # (A) 0.5 k/uL (1.0-4.8); Lymphocytes % (A) 9 %; MCH 28.6 pg (25.0-35.0); MCHC 31.1 g/dL (31.0-37.0); MCV 92.1 fL (80.0-100.0); Monocytes # (A) 0.5 k/uL (0-1.0); Monocytes % (A) 9 %; Neutrophils # (A) 4.2 k/uL (1.3-7.7); Neutrophils % (A) 77 %; Platelet Count 138 k/uL (150-450); Poikilocytosis Moderate; RBC 2.59 m/uL (4.30-5.90); RDW 16.3 % (11.5-15.5); WBC 5.4 k/uL (3.8-10.6)
[2020-02-21 07:18] LABS: Glucose,Whole Blood 208 mg/dL (75-99)
[2020-02-21] MEDS: INSULIN ASPART (NovoLOG) 100 UNIT/ML VIAL SQ SCH ×2 (08:11→11:48)
[2020-02-21] MEDS: SODIUM CHLORIDE 0.9% 1,000 ML IV SCH (08:11)
[2020-02-21] MEDS ORDERED: PANTOPRAZOLE 40 MG/10 ML VIAL IV SCH (09:00)
[2020-02-21 09:53] LABS: African American GFR (CKD) 88.7 (60.0-200.0); Anion Gap 10.9 mmol/L (4.00-12.00); BUN/Creat Ratio 42.22 Ratio (12.00-20.00); Calcium 8.2 mg/dL (8.7-10.3); Carbon Dioxide 31.1 mmol/L (21.6-31.8); Non-African American GFR(CKD) 76.5 (60.0-200.0); Potassium 4.6 mmol/L (3.5-5.5)
[2020-02-21] MEDS ORDERED: TAMSULOSIN 0.4 MG CAP.ER.24H PO SCH (11:00)
[2020-02-21] MEDS ORDERED: FUROSEMIDE 40 MG TAB PO SCH (11:00)
[2020-02-21] MEDS ORDERED: amLODIPine 5 MG TAB PO SCH (11:00)
[2020-02-21] MEDS ORDERED: MULTIVITAMINS, THERA 1 EACH TAB PO SCH (11:00)
[2020-02-21] MEDS ORDERED: CHOLECALCIFEROL 1,000 UNIT TAB PO SCH (11:00)
[2020-02-21] MEDS ORDERED: ASCORBIC ACID 500 MG TAB PO SCH (11:00)
[2020-02-21] MEDS ORDERED: DIGOXIN 250 MCG TAB PO SCH (11:00)
[2020-02-21] MEDS ORDERED: predniSONE 20 MG TAB PO SCH (11:00)
[2020-02-21] MEDS ORDERED: atenoloL 50 MG TAB PO SCH (11:00)
[2020-02-21 11:43] LABS: Glucose,Whole Blood 271 mg/dL (75-99)
--- NOTE | 2020-02-21 12:56 | P.HPIM ---
History of Present Illness Chief Complaint: anemia APt is an 89 y/o male well known to me. He has a h/o Lung ca he has not wished tx for. He was hopsitalized earlier this month for Covid and wass sent home with home care. He has been having worse wekaness at home and rotuine labs showed Hb 6.0, he was sent to the ER where he receive 1u prbcs., He is feeling better this AM. Hospice have come to [place] to him, but t this time he wishes to continue [facility] care and interest in ECF. Review of Systems All systems: negative Constitutional: Reports as per HPI Past Medical History Past Medical History: Atrial Fibrillation, Cancer, COPD, Diabetes Mellitus, GERD/Reflux, Hypertension, Osteoarthritis (OA), Prostate Disorder, Skin Disorder Additional Past Medical History / Comment(s): Colon polyps, endocarditis, spinal stenosis, prostate cancer - had radiation & seed implants, edema jr legs, skin CA scalp, chronic anemia - receives iron transfusions/blood transfusions, lump left axilla History of Any Multi-Drug Resistant Organisms: None Reported Past Surgical History: Adenoidectomy, Appendectomy, Cholecystectomy, Coronary Bypass/CABG, Heart Catheterization, Hernia Repair, Pacemaker, Tonsillectomy Additional Past Surgical History / Comment(s): triple bypass ([place] 2001), left hydrocele repair (child), cataracts, colonoscopies Past Anesthesia/Blood Transfusion Reactions: No Reported Reaction Type of Cardiac Device: Permanent Pacemaker Device Placement Date:: [facility] 2016 Past Psychological History: No Psychological Hx Reported Smoking Status: Former smoker Past Alcohol Use History: Occasional Additional Past Alcohol Use History / Comment(s): quit smoking 1992, started smoking age 16 smoked 1ppd Past Drug Use History: None Reported - Past Family History Mother Additional Family Medical History / Comment(s): heart problems Father Family Medical History: Cancer Additional Family Medical History / Comment(s): colon CA Son(s) Family Medical History: Cancer Brother(s) Family Medical History: Cancer Medications and Allergies Home Medications Medication Instructions Recorded Confirmed Type RX: Digoxin [Digitek] 250 mcg PO QAM 06/07/14 02/20/20 History RX: Tamsulosin [Flomax] 0.4 mg PO BID 06/07/14 02/20/20 History RX: atenoloL [Tenormin] 50 mg PO QAM 06/07/14 02/20/20 History RX: Furosemide [Lasix] 40 mg PO QAM 09/29/16 02/20/20 History RX: Ipratropium/Albuterol Sulfate 1 puff INHALATION RT-QID PRN 09/29/16 02/20/20 History [Combivent Respimat Inhaler] RX: amLODIPine [Norvasc] 5 mg PO DAILY 09/29/16 02/20/20 History RX: Multivitamin [Men's 1 tab PO DAILY 07/29/17 02/20/20 History Multi-Vitamin] RX: Potassium Chloride [Klor-Con 20 meq PO HS 01/27/20 02/20/20 History 20] RX: Ascorbic Acid [Vitamin C] 1,000 mg PO DAILY tab 02/07/20 02/20/20 Rx RX: Aspirin EC [Ecotrin Low Dose] 81 mg PO DAILY #60 tablet. 02/07/20 02/20/20 Rx RX: Cholecalciferol [Vitamin D3 1,000 unit PO DAILY tab 02/07/20 02/20/20 Rx (25 Mcg = 1000 Iu)] RX: Pantoprazole [Protonix] 40 mg PO AC-BRKFST #30 tablet. 02/07/20 02/20/20 Rx RX: Insulin Detemir (Levemir) 30 unit SQ HS 02/20/20 02/20/20 History [Levemir] RX: predniSONE 40 mg PO DAILY 02/20/20 02/20/20 History Allergies Allergy/AdvReac Type Severity Reaction Status Date / Time Penicillins Allergy Rash/Hives Verified 02/20/20 18:47 tetanus immune globulin AdvReac extreme Verified 02/20/20 18:47 swelling entire arm Physical Exam Vitals: Vital Signs Temp Pulse Pulse Resp BP BP Pulse Ox 02/21/20 05:45 97.7 F 59 L 20 117/49 98 02/21/20 01:51 97.6 F 63 17 122/49 02/21/20 01:45 97.6 F 60 20 127/50 100 02/20/20 23:13 98.2 F 57 L 19 127/50 100 02/20/20 22:43 98.0 F 60 19 113/47 100 02/20/20 22:33 97.8 F 61 20 115/44 100 02/20/20 21:00 98.2 F 60 20 125/50 99 02/20/20 19:00 60 17 134/46 99 02/20/20 18:00 60 18 132/49 98 02/20/20 17:09 98.5 F 61 20 125/50 100 02/20/20 17:00 61 18 98 Intake and Output 02/20/20 02/21/20 02/21/20 22:59 06:59 14:59 Intake Total 100 1700 Output Total 1 Balance 100 1699 Intake: Intake, IV Titration 750 Amount Sodium Chloride 0.9% 1, 750 000 ml @ 75 mls/hr IV . [id number] [facility] Rx#:[id number] Oral 100 640 Blood Product 0 310 Rc As-1 Unit 0 310 [id number] Output: Urine 1 Other: Voiding Method Bedside Commode Bedside Commode Diaper Diaper # Voids 1 Weight 78.471 kg - Constitutional General appearance: average body habitus - EENT Eyes: PERRLA ENT: normal oropharynx - Neck Neck: lymphadenopathy, thyromegaly Carotids: bilateral: upstroke normal Thyroid: bilateral: normal size - Respiratory Respiratory: bilateral: rhonchi - Cardiovascular Rhythm: regular Heart sounds: normal: S1, S2 - Gastrointestinal General gastrointestinal: normal bowel sounds - Neurologic Neurologic: CNII-XII intact - Musculoskeletal Musculoskeletal: generalized weakness - Psychiatric Psychiatric: A&O x's 3, appropriate affect, intact judgment & insight Results CBC & Chem 7: 02/21/20 06:01 02/21/20 06:01 Labs: Abnormal Lab Results - Last 24 Hours (Table) 02/20/20 02/20/20 02/20/20 Range/Units 17:28 17:30 17:30 RBC 2.29 L (4.30-5.90) m/uL Hgb 6.5 L* D (13.0-17.5) gm/dL Hct 21.2 L (39.0-53.0) % MCHC 30.5 L (31.0-37.0) g/dL RDW 16.5 H (11.5-15.5) % Plt Count 144 L (150-450) k/uL Lymphocytes # 0.2 L (1.0-4.8) k/uL Sodium (137-145) mmol/L Potassium (3.5-5.1) mmol/L Chloride (98-107) mmol/L Carbon Dioxide (22-30) mmol/L BUN (9-20) mg/dL BUN/Creatinine Ratio (12.00-20.00) Ratio Glucose (74-99) mg/dL POC Glucose (mg/dL) (75-99) mg/dL Plasma Lactic Acid Caleb 3.1 H* (0.7-2.0) mmol/L Calcium (8.7-10.3) mg/dL Total Protein (6.3-8.2) g/dL Albumin (3.5-5.0) g/dL Crossmatch See Detail 02/20/20 02/20/20 02/21/20 Range/Units 17:34 20:31 06:01 RBC 2.59 L (4.30-5.90) m/uL Hgb 7.4 L (13.0-17.5) gm/dL Hct 23.8 L (39.0-53.0) % MCHC (31.0-37.0) g/dL RDW 16.3 H (11.5-15.5) % Plt Count 138 L (150-450) k/uL Lymphocytes # 0.5 L (1.0-4.8) k/uL Sodium 126 L (137-145) mmol/L Potassium 5.2 H (3.5-5.1) mmol/L Chloride 85 L (98-107) mmol/L Carbon Dioxide 36 H (22-30) mmol/L BUN 44 H (9-20) mg/dL BUN/Creatinine Ratio (12.00-20.00) Ratio Glucose 405 H (74-99) mg/dL POC Glucose (mg/dL) 365 H (75-99) mg/dL Plasma Lactic Acid Caleb (0.7-2.0) mmol/L Calcium (8.7-10.3) mg/dL Total Protein 5.8 L (6.3-8.2) g/dL Albumin 2.9 L (3.5-5.0) g/dL Crossmatch 02/21/20 02/21/20 02/21/20 Range/Units 06:01 07:14 11:41 RBC (4.30-5.90) m/uL Hgb (13.0-17.5) gm/dL Hct (39.0-53.0) % MCHC (31.0-37.0) g/dL RDW (11.5-15.5) % Plt Count (150-450) k/uL Lymphocytes # (1.0-4.8) k/uL Sodium 132 L (137-145) mmol/L Potassium (3.5-5.1) mmol/L Chloride 90 L (98-107) mmol/L Carbon Dioxide (22-30) mmol/L BUN 38.0 H (9-20) mg/dL BUN/Creatinine Ratio 42.22 H (12.00-20.00) Ratio Glucose 196 H (74-99) mg/dL POC Glucose (mg/dL) 208 H 271 H (75-99) mg/dL Plasma Lactic Acid Caleb (0.7-2.0) mmol/L Calcium 8.2 L (8.7-10.3) mg/dL Total Protein (6.3-8.2) g/dL Albumin (3.5-5.0) g/dL Crossmatch Thrombosis Risk Factor Assmnt - DVT/VTE Prophylaxis DVT/VTE Prophylaxis: Contraindicated - See note (recent GOB) - Choose All That Apply Any of the Below Risk Factors Present?: Yes Each Factor Represents 1 point: Abnormal pulmonary function (COPD), Serious lung disease incl. pneumonia (< 1month) Other Risk Factors: Yes Each Risk Factor Represents 2 Points: Major surgery Each Risk Factor Represents 3 Points: Age 75 years or older Other congenital or acquired thrombophilia - If yes, enter type in comment: No Thrombosis Risk Factor Assessment Total Risk Factor Score: 7 Thrombosis Risk Factor Assessment Level: High Risk Assessment and Plan (1) GI bleed Current Visit: Yes Status: Acute Code(s): K92.2 - GASTROINTESTINAL HEMO RRHAGE, UNSPECIFIED SNOMED Code(s): 92753861 (2) Anemia Current Visit: Yes Status: Acute Code(s): D64.9 - ANEMIA, UNSPECIFIED SNOMED Code(s): 452156529 (3) Chronic respiratory insufficiency Current Visit: Yes Status: Acute Code(s): R06.89 - OTHER ABNORMALITIES OF BREATHING SNOMED Code(s): 118657038 (4) NHL (non-Hodgkin's lymphoma) Current Visit: Yes Status: Acute Code(s): C85.90 - NON-HODGKIN LYMPHOMA, UNSPECIFIED, UNSPECIFIED SITE SNOMED Code(s): 321088913 (5) Atrial fibrillation with controlled ventricular rate Current Visit: No Status: Acute Code(s): I48.91 - UNSPECIFIED ATRIAL FIBRILLATION SNOMED Code(s): 25501842 (6) CAD (coronary artery disease) Current Visit: No Status: Acute Code(s): I25.10 - ATHSCL HEART DISEASE OF [place] CORONARY ARTERY W/O ANG PCTRS SNOMED Code(s): 83868756 (7) COVID-19 Current Visit: No Status: Acute Priority: High Code(s): U07.1 - COVID-19 SNOMED Code(s): 105813747 (8) Chronic diastolic (congestive) heart failure Current Visit: No Status: Acute Code(s): I50.32 - CHRONIC DIASTOLIC (CONGESTIVE) HEART FAILURE SNOMED Code(s): 189283296 (9) Chronic obstructive pulmonary disease Current Visit: No Status: Acute Code(s): J44.9 - CHRONIC OBSTRUCTIVE PULMONARY DISEASE, UNSPECIFIED SNOMED Code(s): 78820124 (10) H/O lymphoma Current Visit: No Status: Acute Code(s): Z85.79 - PRSNL HX OF MALIG NEOPLM OF LYMPHOID, HEMATPOETC & REL TISS SNOMED Code(s): 207788082 Plan: at this time patient is s/p 1u prbcs and he is not wanting further treatment. He is requesting D/C home and will open to hospice soon
--- NOTE | 2020-02-21 12:59 | P.DS ---
Providers Date of admission: 02/20/20 18:45 Expected date of discharge: 02/21/20 Attending physician: Harvey Apple Consults: 02/20/20 18:46 Consult Physician Urgent Consulting Provider: Benji Yepez Consult Reason/Comments: acute/chronic anemia, melena Do you want consulting provider notified?: Yes Primary care physician: Harvey Apple - Discharge Diagnosis(es) (1) GI bleed Current Visit: Yes Status: Acute (2) Anemia Current Visit: Yes Status: Acute (3) Chronic respiratory insufficiency Current Visit: Yes Status: Acute (4) NHL (non-Hodgkin's lymphoma) Current Visit: Yes Status: Acute (5) Atrial fibrillation with controlled ventricular rate Current Visit: No Status: Acute (6) CAD (coronary artery disease) Current Visit: No Status: Acute (7) COVID-19 Current Visit: No Status: Acute Priority: High (8) Chronic diastolic (congestive) heart failure Current Visit: No Status: Acute (9) Chronic obstructive pulmonary disease Current Visit: No Status: Acute (10) H/O lymphoma Current Visit: No Status: Acute Hospital Course: Pt is an 89 y/o male well known to me. He has a h/o Lung ca he has not wished tx for. He was hopsitalized earlier this month for Covid and wass sent home with home care. He has been having worse wekaness at home and rotuine labs showed Hb 6.0, he was sent to the ER where he receive 1u prbcs., He is feeling better this AM. Hospice have come to [place] to him, but t this time he wishes to continue wut home care and NO interest in ECF. He feels better overall but does not wish any further treatment or intervention other than some assistance at home. Patient Condition at Discharge: Serious Plan - Discharge Summary Discharge Rx Participant: Yes New Discharge Prescriptions: New RX: INSULIN ASPART (NovoLOG) [NovoLOG (formulary)] 0 unit SQ ACHS #0 vial Continue RX: Tamsulosin [Flomax] 0.4 mg PO BID RX: atenoloL [Tenormin] 50 mg PO QAM RX: Digoxin [Digitek] 250 mcg PO QAM RX: Furosemide [Lasix] 40 mg PO QAM RX: amLODIPine [Norvasc] 5 mg PO DAILY RX: Ipratropium/Albuterol Sulfate [Combivent Respimat Inhaler] 1 puff INHALATION RT-QID PRN PRN Reason: Shortness Of Breath RX: Multivitamin [Men's Multi-Vitamin] 1 tab PO DAILY RX: Potassium Chloride [Klor-Con 20] 20 meq PO HS RX: Ascorbic Acid [Vitamin C] 1,000 mg PO DAILY tab RX: Cholecalciferol [Vitamin D3 (25 Mcg = 1000 Iu)] 1,000 unit PO DAILY tab RX: Aspirin EC [Ecotrin Low Dose] 81 mg PO DAILY #60 tablet. RX: Pantoprazole [Protonix] 40 mg PO AC-BRKFST #30 tablet. RX: predniSONE 40 mg PO DAILY RX: Insulin Detemir (Levemir) [Levemir] 30 unit SQ HS Discharge Medication List RX: Digoxin [Digitek] 250 mcg PO QAM 06/07/14 [History] RX: Tamsulosin [Flomax] 0.4 mg PO BID 06/07/14 [History] RX: atenoloL [Tenormin] 50 mg PO QAM 06/07/14 [History] RX: Furosemide [Lasix] 40 mg PO QAM 09/29/16 [History] RX: Ipratropium/Albuterol Sulfate [Combivent Respimat Inhaler] 1 puff INHALATION RT-QID PRN 09/29/16 [History] RX: amLODIPine [Norvasc] 5 mg PO DAILY 09/29/16 [History] RX: Multivitamin [Men's Multi-Vitamin] 1 tab PO DAILY 07/29/17 [History] RX: Potassium Chloride [Klor-Con 20] 20 meq PO HS 01/27/20 [History] RX: Ascorbic Acid [Vitamin C] 1,000 mg PO DAILY tab 02/07/20 [Rx] RX: Aspirin EC [Ecotrin Low Dose] 81 mg PO DAILY #60 tablet. 02/07/20 [Rx] RX: Cholecalciferol [Vitamin D3 (25 Mcg = 1000 Iu)] 1,000 unit PO DAILY tab 02/07/20 [Rx] RX: Pantoprazole [Protonix] 40 mg PO AC-BRKFST #30 tablet. 02/07/20 [Rx] RX: Insulin Detemir (Levemir) [Levemir] 30 unit SQ HS 02/20/20 [History] RX: predniSONE 40 mg PO DAILY 02/20/20 [History] RX: INSULIN ASPART (NovoLOG) [NovoLOG (formulary)] 0 unit SQ ACHS #0 vial 02/21/20 [Rx] Follow up Appointment(s)/Referral(s): [facility], [NON-STAFF] - As Needed Harvey Apple MD [Primary Care Provider] - 1-2 days
[2020-02-21 14:35] VITALS: BP 112/63; PULSE 60; RESP 22; TEMP 98
[2020-02-21] MEDS ORDERED: INSULIN DETEMIR (LEVEMIR) 100 UNIT/ML SYR SQ SCH (21:00)
[2020-02-21] MEDS ORDERED: POTASSIUM CHLORIDE ER 20 MEQ TAB.ER PO SCH (21:00)
== END 2020-02-21 16:01 | disposition home health service (06) | DRG 378 ==
LOC: EC 16:53 → 4SSUR 18:45
PROVIDERS: ADMIT Family Medicine; ATTEND Family Medicine
PROC: 30233N1 Transfusion of Nonautologous Red Blood Cells into Peripheral Vein, Percutaneous Approach (ICD-10-PCS; principal; 2020-02-21)
DX: K92.2 Gastrointestinal hemorrhage, unspecified (principal); I50.32 Chronic diastolic (congestive) heart failure; E87.2 Acidosis; E87.1 Hypo-osmolality and hyponatremia; C85.90 Non-Hodgkin lymphoma, unspecified, unspecified site; J44.9 Chronic obstructive pulmonary disease, unspecified; I48.91 Unspecified atrial fibrillation; I25.10 Atherosclerotic heart disease of native coronary artery without angina pectoris; I11.0 Hypertensive heart disease with heart failure; E11.65 Type 2 diabetes mellitus with hyperglycemia; D64.9 Anemia, unspecified; Z99.81 Dependence on supplemental oxygen; Z95.1 Presence of aortocoronary bypass graft; Z87.891 Personal history of nicotine dependence; Z87.19 Personal history of other diseases of the digestive system; Z85.828 Personal history of other malignant neoplasm of skin; Z85.46 Personal history of malignant neoplasm of prostate; Z85.118 Personal history of other malignant neoplasm of bronchus and lung; Z80.0 Family history of malignant neoplasm of digestive organs; Z79.899 Other long term (current) drug therapy; Z79.82 Long term (current) use of aspirin; Z79.4 Long term (current) use of insulin; Z88.0 Allergy status to penicillin; Z88.7 Allergy status to serum and vaccine; Z90.49 Acquired absence of other specified parts of digestive tract; Z90.89 Acquired absence of other organs; Z86.19 Personal history of other infectious and parasitic diseases
CPT/HCPCS: 36415; 80048; 80053; 82272; 83605; 84484; 85025; 85610; 85730; 86850; 86900; 86901; 86920; 93005; 96374; 99285